=== PATIENT | female | born 1970 | race Caucasian/White ===

== ENCOUNTER 2020-07-21 07:35 | Outpatient (RCR) | payer BC, SELFPAY ==
[2020-07-20 13:46] LABS: Hemoglobin 5.8 g/dL (12.0-15.0)
[2020-07-21] VITALS (11 sets, daily range): BP systolic 99–119; BP diastolic 51–75; PULSE 81–91; RESP 15–18; TEMP 36.3–37.3; O2SAT 99–100
== END 2020-10-18 23:59 | disposition home or self-care (01) ==
LOC: ANHCPCTRAN 07:35
PROVIDERS: PCP Family Medicine; Visit Provider Family Medicine
DX: D64.9 Anemia, unspecified (principal)
CPT/HCPCS: 36415; 36430; 85014; 85018; 86850; 86900; 86901; 86920; P9016

== ENCOUNTER 2020-10-11 05:33 | Emergency (ER) | payer BC, SELFPAY ==
[2020-10-11] VITALS (19 sets, daily range): BP systolic 116–184; BP diastolic 70–124; PULSE 84–155; RESP 14–32; TEMP 37.1–37.6; O2SAT 95–100
--- NOTE | 2020-10-11 05:41 | ECG_ITS ---
Measurements Intervals [place] Rate: 150 P: 61 WI: 125 QRS: 37 QRSD: 86 T: 52 QT: 323 QTc: 511 Interpretive Statements SINUS TACHYCARDIA, POSSIBLE ATRIAL FLUTTER CANNOT RULE OUT SEPTAL INFARCT, AGE INDETERMINATE BORDERLINE ST-T WAVE ABNORMALITY- INF/LAT LEADS BASELINE ARTIFACT- AVR, AVL, V1-V3 ABNORMAL ECG Electronically Signed On 10-15-2020 10:23:06 CDT by Tyler Lord D.O.
--- NOTE | 2020-10-11 05:55 | ED.SEIZURE ---
HPI - Seizure General Chief Complaint: Seizure <Satnam Sandoval MD - Last Filed: 10/11/20 06:39> Stated Complaint: seizure <Satnam Sandoval MD - Last Filed: 10/11/20 06:39> Time Seen by Provider: 10/11/20 05:46 <Satnam Sandoval MD - Last Filed: 10/11/20 06:39> History of Present Illness HPI Narrative: Patient is a 49-year-old female who presents ER status post seizure. Patient had one 20 second seizure at home prior to calling an ambulance. She took her home Keppra 500 mg just before this. While in the ambulance she had another 30 second seizure. She has mild confusion with the second seizure. For seizure she reports she did not lose consciousness. No loss of bowel or bladder. Denies any missed doses of her epileptic medication. She does report over the last week she has been feeling fatigued and unwell and has not been eating and drinking as well. No additional stressors. Dr. Daniels is her neurologist. Last seizure 04/2020. <Satnam Sandoval MD - Last Filed: 10/11/20 06:39> Related Data Home Medications: Home Medications Medication Instructions Recorded Confirmed acetaminophen 500 mg tablet 1,000 mg PO Q6H PRN tablet 03/25/19 08/26/20 cholecalciferol (vitamin D3) 25 1,000 unit PO DAILY 03/25/19 08/26/20 mcg (1,000 unit) tablet mhtibr-kqwdwexg-bnvlboo 2 cap PO TID cap 03/25/19 08/26/20 24,000-76,000-120,000 unit capsule,delayed rel thiamine mononitrate (vit B1) 100 100 mg PO DAILY 03/25/19 08/26/20 mg tablet pantoprazole 40 mg tablet,delayed 40 mg PO BID tablet 07/30/19 08/26/20 release gabapentin 300 mg capsule 300 mg PO TID cap 08/26/20 08/26/20 <Satnam Sandoval MD - Last Filed: 10/11/20 06:39> Allergies/Adverse Reactions: Allergies Allergy/AdvReac Type Severity Reaction Status Date / Time No Known Allergies Allergy Verified 10/11/20 05:54 <Satnam Sandoval MD - Last Filed: 10/11/20 06:39> Review of Systems Review of Systems: All systems reviewed & are unremarkable except as noted in HPI and below <Satnam Sandoval MD - Last Filed: 10/11/20 06:39> Constitutional: Constitutional: Denies chills, Denies fever(s) and Denies weakness <Satnam Sandoval MD - Last Filed: 10/11/20 06:39> ENT: Denies nasal congestion and Denies sore throat <Satnam Sandoval MD - Last Filed: 10/11/20 06:39> Respiratory: Respiratory: Denies cough and Denies dyspnea <Satnam Sandoval MD - Last Filed: 10/11/20 06:39> Gastrointestinal: Gastrointestinal: Denies abdominal pain, Denies nausea and Denies vomiting <Satnam Sandoval MD - Last Filed: 10/11/20 06:39> Comments: Denies GI bleeding. <Satnam Sandoval MD - Last Filed: 10/11/20 06:39> Neurologic: Denies headache(s), Denies focal weakness and Denies numbness <Satnam Sandoval MD - Last Filed: 10/11/20 06:39> Comments: Seizure <Satnam Sandoval MD - Last Filed: 10/11/20 06:39> PMFSH Past Medical History Medical History: Medical History (Updated 10/11/20 @ 11:16 by Josemanuel Christy MD) Anxiety Biliary stricture Chronic pancreatitis Depression Esophageal varices Essential (primary) hypertension H/O adenomatous polyp of colon MGUS (monoclonal gammopathy of unknown significance) Portal vein thrombosis Seizure <Satnam Sandoval MD - Last Filed: 10/11/20 06:39> Surgical History Surgical History: Surgical History History of lumpectomy of right breast Presence of pancreatic duct stent <Satnam Sandoval MD - Last Filed: 10/11/20 06:39> Family History Family History: Family History Father Hypertension Cerebrovascular accident Mother Hypertension <Satnam Sandoval MD - Last Filed: 10/11/20 06:39> Social History Social History: Social History Smoking status: Never smoker Second hand to
[2020-10-11] MEDS: SODIUM CHLORIDE 0.9% IV 1,000 ML 999 ML IV CONT ×2 (06:15→06:19)
[2020-10-11 06:23] LABS: Basophils Percent Auto 0.3 % (0.2-1.2); Eosinophils Percent Auto 0.5 % (0-4.4); Hematocrit 32.4 % (37.0-47.0); Hemoglobin 9.9 g/dL (12.0-15.0); Immature Granulocyte Absolute 0.05 K/mm3 (0.00-0.031); Immature Granulocyte Percent A 0.9 % (0-0.5); Immature Platelet Fraction Pct 9.5 % (0.9-11.2); Lymphocytes Absolute Auto 0.73 K/mm3 (0.9-3.2); Lymphocytes Percent Auto 12.8 % (18.3-44.2); Mean Corpuscular HGB Conc 30.6 g/dl (32-36); Mean Corpuscular Hemoglobin 24.4 pg (26-34); Mean Corpuscular Volume 79.8 fl (80-100); Mean Platelet Volume 10.2 fl (7.4-10.4); Monocytes Absolute Auto 0.9 K/mm3 (0.1-0.6); Monocytes Percent Auto 15.2 % (2.6-8.5); Neutrophils Percent Auto 70.3 % (45.5-73.1); Platelet Count Result 118 k/mm3 (150-375); Red Blood Count 4.06 M/mm3 (4.2-5.4); White Blood Count 5.7 K/mm3 (4.5-10.0)
--- NOTE | 2020-10-11 06:39 | PC.NURSE ---
Pt reports partial seizure, states that her head went back and her eyes started blinking.
[2020-10-11 06:44] LABS: Add Urine Microscopic? YES; Appearance Urine Clear (Clear); Bilirubin Urine Negative (Negative); Blood Urine Negative (Negative); Color Urine Straw (Yellow); Glucose Urine UA Negative (Negative); Ketones Urine Trace mg/dL (Negative); Leukocyte Esterase Ur Negative LEU/UL (Negative); Nitrate Urine Negative (Negative); Protein Urine Negative (Negative); RBC Urine 0-2 /hpf (0-2); Specific Grav Ur 1.005 (1.001-1.035); Urobilinogen Urine Negative mg/dL (<2.0); WBC Urine 0-3 /hpf
[2020-10-11] MEDS: LORazepam INJ (*CRX) 2 MG/ML VIAL 1 MG IV PUSH (06:49)
[2020-10-11] MEDS: levETIRAcetam 500MG/NACL 100ML 500 MG/100 ML BAG 400 MG IVPB (07:00)
--- NOTE | 2020-10-11 07:00 | PC.NURSE ---
this rn called [facility] and stated they would fax report over within in the next 20 min.
--- NOTE | 2020-10-11 07:08 | PC.NURSE ---
Lab called - all blood tubes hemolyzed. Informed RN.
[2020-10-11 07:34] LABS: Alanine Aminotransferase 44 U/L (4-35); Albumin Level 4.5 g/dL (3.5-5.1); Alkaline Phosphatase 107 U/L (38-126); Anion Gap 17 mmol/L (8-16); Aspartate Amino Transferase 79 U/L (14-36); Bilirubin,Total 0.8 mg/dL (0.2-1.3); Blood Urea Nitrogen 9 mg/dL (7-17); Calcium 9.1 mg/dL (8.4-10.2); Carbon Dioxide 22 mmol/L (22-30); Chloride 94 mmol/L (98-107); Estimated CRCL calculation 73 ml/min; Estimated Glomerular Filt Rate > 60; Glucose 169 mg/dL (65-105); Potassium 3.7 mmol/L (3.4-5.0); Sodium 133 mmol/L (137-145)
[2020-10-14 03:07] LABS: Levetiracetam Keppra 29.1 mcg/mL (12.0-46.0)
== END 2020-10-11 11:50 | disposition home or self-care (01) ==
PROVIDERS: Emergency Medicine; Emergency Provider Emergency Medicine; PCP Family Medicine
DX: G40.409 Other generalized epilepsy and epileptic syndromes, not intractable, without status epilepticus (principal); I10 Essential (primary) hypertension; F32.9 Major depressive disorder, single episode, unspecified; F41.9 Anxiety disorder, unspecified
CPT/HCPCS: 36415; 51701; 80053; 80177; 81001; 85025; 85055; 93005; 96361; 96365; 96375; 99284; J1953; J2060; J7030

== ENCOUNTER 2020-12-04 18:54 | Observation (INO) | payer BC, SELFPAY ==
[2020-12-04] VITALS (31 sets, daily range): BP systolic 86–112; BP diastolic 42–84; PULSE 99–154; RESP 12–32; TEMP 36.4–37.4; O2SAT 91–100
--- NOTE | ~2020-12-04 | XR_ITS ---
XR chest 1V portable DATE: 12/04/2020 20:03 INDICATION: Near syncope. Weakness. History of essential hypertension, anxiety, seizures TECHNIQUE: Portable AP chest on 12/04/2020 at 1958 hours COMPARISON: 02/16/2018 two-view chest FINDINGS: Normal heart size. No hilar or mediastinal enlargement. The lungs are clear of infiltrate o r consolidation. No pleural effusion or pulmonary vascular congestion or pneumothorax. IMPRESSION: No active cardiopulmonary disease Reviewed, dictated and finalized at location A.
--- NOTE | 2020-12-04 19:33 | ECG_ITS ---
Measurements Intervals [place] Rate: 145 P: 54 [place]: 107 QRS: 39 QRSD: 77 T: 39 QT: 282 QTc: 439 Interpretive Statements SINUS TACHYCARDIA WITH SHORT WA INTERVAL, POSSIBLE ATRIAL FLUTTER BORDERLINE ST ABNORMALITY- ANTEROLAT/INF LEADS ABNORMAL ECG Electronically Signed On 12-05-2020 8:19:56 CDT by Tyler Lord D.O.
--- NOTE | 2020-12-04 19:35 | ED.GENADULT ---
HPI - General Adult General Chief complaint: Syncope Stated complaint: weakness/ seizure? Time Seen by Provider: 12/04/20 19:28 Source: RN notes reviewed History of Present Illness HPI narrative: Patient presents emergency department from home via EMS for weakness. Patient states that she was feeling weak and dizzy at home today she states that she began to feel weak when she woke up this morning but the symptoms worsened this afternoon she states she tried to walk back from the bathroom and felt like she was going to pass out she denies any full syncopal episodes she denies any fevers or chills chest pain shortness of breath abdominal pain nausea vomiting or any other symptoms states she has had no recent illness Related Data Home Medications Medication Instructions Recorded Confirmed acetaminophen 500 mg tablet 1,000 mg PO Q6H PRN tablet 03/25/19 08/26/20 cholecalciferol (vitamin D3) 25 1,000 unit PO DAILY 03/25/19 08/26/20 mcg (1,000 unit) tablet kipolb-cgakamrl-yyduyzz 2 cap PO TID cap 03/25/19 08/26/20 24,000-76,000-120,000 unit capsule,delayed rel thiamine mononitrate (vit B1) 100 100 mg PO DAILY 03/25/19 08/26/20 mg tablet pantoprazole 40 mg tablet,delayed 40 mg PO BID tablet 07/30/19 08/26/20 release gabapentin 300 mg capsule 300 mg PO TID cap 08/26/20 08/26/20 Allergies Allergy/AdvReac Type Severity Reaction Status Date / Time No Known Allergies Allergy Verified 10/11/20 05:54 Review of Systems Review of Systems: Gen.: Denies fevers or chills Eyes: Denies eye pain or visual change ENT: Denies congestion Respiratory: Denies shortness of breath or cough CV: Denies chest pain or palpitations reports near syncope GI: Denies abdominal pain nausea, emesis or diarrhea Musculoskeletal: Denies back pain or muscle pain Neuro: Reports weakness Skin: Denies rash Except as documented, all other systems reviewed and negative PMFSH Past Medical History Medical History Anxiety Biliary stricture Chronic pancreatitis Depression Esophageal varices Essential (primary) hypertension H/O adenomatous polyp of colon MGUS (monoclonal gammopathy of unknown significance) Portal vein thrombosis Seizure Surgical History Surgical History History of lumpectomy of right breast Presence of pancreatic duct stent Family History Family History Father Hypertension Cerebrovascular accident Mother Hypertension Social History Social History Smoking status: Never smoker Second hand tobacco smoke exposure: No Alcohol intake: former Alcohol use details: 12/2017 Substance use: never Substance use type: does not use Gender identity (if verbalized by the patient): Female Exam Narrative: APPEARANCE: No acute distress, nontoxic, resting in bed EYES: EOMI HEENT: Normocephalic, atraumatic, OMM RESPIRATORY: No respiratory distress Clear to auscultation bilaterally with no rhonchi wheezing or rales. CARDIOVASCULAR: Tachycardic and regular without murmurs rubs or gallops. ABDOMINAL: Soft, nontender, nondistended, no rebound or guarding Rectal: No hemorrhoids or fissures on amount of soft light brown stool that slowly comes Hemoccult positive MUSCULOSKELETAl: Moves all extremities. No clubbing, cyanosis or edema. NEURO: Awake and alert x 3. Following commands, speech normal, no focal deficits SKIN:: Warm, dry. No rashes lesions or abrasions PSYCHIATRIC: Normal affect/mood, Course Course Emergency Course: Called discussed Dr. Bauer presentation work-up agrees with admission at this time agrees with plan for transfusion Called and discussed Dr. Reza for GI presentation work-up agrees with consult at this time Discussed with patient and family results of workup and diagnosis. Discu
[2020-12-04] MEDS: SODIUM CHLORIDE 0.9% IV 1,000 ML 999 ML IV CONT ×2 (20:27→20:29)
[2020-12-04 20:33] LABS: Basophils Percent Auto 0.3 % (0.2-1.2); Hematocrit 22.8 % (37.0-47.0); Immature Granulocyte Percent A 0.9 % (0-0.5); Lymphocytes Absolute Auto 0.67 K/mm3 (0.9-3.2); Lymphocytes Percent Auto 6.3 % (18.3-44.2); Mean Corpuscular HGB Conc 29.4 g/dl (32-36); Mean Corpuscular Hemoglobin 23.9 pg (26-34); Mean Corpuscular Volume 81.4 fl (80-100); Mean Platelet Volume 10.9 fl (7.4-10.4); Monocytes Absolute Auto 1.2 K/mm3 (0.1-0.6); Monocytes Percent Auto 11.6 % (2.6-8.5); Neutrophils Absolute Auto 8.5 K/mm3 (1.3-6.7); Neutrophils Percent Auto 80.9 % (45.5-73.1); Platelet Count Result 186 k/mm3 (150-375); Red Cell Distribution Width 23.2 % (11.5-14.5); White Blood Count 10.6 K/mm3 (4.5-10.0)
[2020-12-04 20:46] LABS: Alanine Aminotransferase 43 U/L (4-35); Alkaline Phosphatase 91 U/L (38-126); Anion Gap 11 mmol/L (8-16); Aspartate Amino Transferase 34 U/L (14-36); Bilirubin,Total 0.4 mg/dL (0.2-1.3); Blood Urea Nitrogen 28 mg/dL (7-17); Calcium 9.1 mg/dL (8.4-10.2); Carbon Dioxide 23 mmol/L (22-30); Chloride 98 mmol/L (98-107); Estimated CRCL calculation 84 ml/min; Estimated Glomerular Filt Rate > 60; Glucose 139 mg/dL (65-110); Magnesium 1.5 mg/dL (1.6-2.3); Sodium 132 mmol/L (137-145)
[2020-12-04 20:47] LABS: Ethanol < 10 mg/dL (<10)
[2020-12-04 20:56] LABS: Hemoglobin 6.7 g/dL (12.0-15.0)
[2020-12-04 20:58] LABS: Troponin I < 0.012 ng/mL (0.000-0.034)
[2020-12-04 20:59] LABS: INR 1.1; Prothrombin Time 13.6 Seconds (11.1-14.7)
[2020-12-04 21:00] LABS: Partial Thromboplastin Time 24.2 SECONDS (22.3-36.8)
[2020-12-04] MEDS: levETIRAcetam 500 MG TABLET PO (21:16)
[2020-12-04] MEDS: MAGNESIUM SULF 2 GM/WATER 50ML 2 GM/50 ML BAG IVPB (21:28)
[2020-12-04] MEDS: PANTOPRAZOLE SODIUM IV 40 MG VIAL IV PUSH (21:28)
[2020-12-04] MEDS: SODIUM CHLORIDE 0.9% IV 250 ML 30 ML IV CONT (22:37)
[2020-12-05] VITALS (25 sets, daily range): BP systolic 95–132; BP diastolic 56–87; PULSE 74–103; RESP 12–22; TEMP 35.9–37.2; O2SAT 96–100; BMI 24.2
--- NOTE | 2020-12-05 00:19 | PM.IMHP ---
H&P: HPI History of Present Illness Date/Time: 12/05/20 00:19 Chief Complaint: Near syncope, severe anemia Narrative: Patient presents to the emergency department from home via EMS for near syncopal episode that she had this afternoon. She stated that she was doing well until yesterday in the afternoon when she felt very weak and dizzy at home almost Jayne pass out but she lowered herself down to the floor and called EMS. This happened while she was going back to the bathroom and was using a walker do that as she was getting more short of breath as well. She denies any dark-colored stool or any blood in the stool. She has chronic history of anemia and GI bleed usually sees a GI doctor at [facility]. She denies any nausea vomiting or abdominal pain no fever chills. In the ER she was noted to be anemic at 6.7 her last hemoglobin was 9.9 prior to this. She was possibly guaiac-positive done in the ER on rectal exam. She was also tachycardic with sinus tachycardia on the ER arrival. She got some fluid and 1 lead unit of PRBC done in the ER and is feeling better already. She is admitted for further evaluation and management. Review of Systems Review of Systems: - CONSTITUTIONAL: Denies weight loss, fever and chills. - HEENT: Denies changes in vision and hearing - RESPIRATORY: Denies SOB and cough. Reports shortness of breath on exertion - CV: Denies palpitations and CP. - GI: Denies abdominal pain, nausea, vomiting and diarrhea. - : Denies dysuria and urinary frequency. - MSK: Denies myalgia and joint pain. - SKIN: Denies rash and pruritus. - NEUROLOGICAL: Denies headache and reports near syncope. - PSYCHIATRIC: Denies recent changes in mood. Denies anxiety and depression. All systems reviewed & are unremarkable except as noted in HPI and below Constitutional: Constitutional: Reports fatigue and Reports weakness Neurologic: Reports weakness Endocrine: Endocrine: Reports fatigue PMFSH Past Medical History Medical History Anxiety Biliary stricture Chronic pancreatitis Depression Esophageal varices Essential (primary) hypertension H/O adenomatous polyp of colon MGUS (monoclonal gammopathy of unknown significance) Portal vein thrombosis Seizure Surgical History Surgical History History of lumpectomy of right breast Presence of pancreatic duct stent Family History Family History Father Hypertension Cerebrovascular accident Mother Hypertension Social History Social History Smoking status: Never smoker Second hand tobacco smoke exposure: No Alcohol intake: former Alcohol use details: 12/2017 Substance use: never Substance use type: does not use Gender identity (if verbalized by the patient): Female Meds Home Medications and Allergies Home Medications Medication Instructions Recorded Confirmed Type gabapentin 300 mg capsule 300 mg PO TID cap 08/26/20 08/26/20 History levetiracetam 500 mg tablet 500 mg PO Q12H #180 tablet 09/16/20 Rx buspirone [BuSpar] 10 mg PO BID 12/04/20 History desvenlafaxine 50 mg PO DAILY 12/04/20 History ezlikr-ddkitgeq-aeydbof [Creon] 1 cap PO AC 12/04/20 History lorazepam 0.5 mg PO TID PRN 12/04/20 History ondansetron 12/04/20 History Allergies Allergy/AdvReac Type Severity Reaction Status Date / Time No Known Allergies Allergy Verified 12/04/20 22:20 Vital Signs Vital Signs - 24 hr 12/04/20 19:02 12/04/20 19:06 12/04/20 19:12 Temperature 98.9 F Pulse Rate 130 H 134 H 139 H Respiratory Rate 12 18 Blood Pressure 96/79 L 91/79 L Pulse Oximetry 100 100 12/04/20 19:15 12/04/20 19:30 12/04/20 19:45 Temperature Pulse Rate 124 H 138 H 134 H Respiratory Rate 16 14 16 Blood Pressure 97/84 L Pulse Oxim
--- NOTE | 2020-12-05 00:28 | ADMGEN ---
This patient, Adina Jerome, was admitted to IMU Room 202-01 on 12/05/20 at 0006. Patient/family oriented to hospital policies and general routines including ID bracelet, bed and alarms, visiting hours, pain management, procedures, bathroom and other care routines, personal items, smoking policy, room service/diet, and visiting hours. Information on how to activate the Rapid Response Team has been discussed. Patient/Family are encouraged to report perceived risks to care and to ask questions if they do not understand what they are told or what they should do.
[2020-12-05 02:11] LABS: Basophils Percent Auto 0.4 % (0.2-1.2); Eosinophils Percent Auto 0.2 % (0-4.4); Hematocrit 23.6 % (37.0-47.0); Immature Granulocyte Absolute 0.03 K/mm3 (0.00-0.031); Immature Granulocyte Percent A 0.6 % (0-0.5); Immature Platelet Fraction Pct 8.8 % (0.9-11.2); Lymphocytes Absolute Auto 1.01 K/mm3 (0.9-3.2); Lymphocytes Percent Auto 18.9 % (18.3-44.2); Mean Corpuscular HGB Conc 29.2 g/dl (32-36); Mean Corpuscular Hemoglobin 25.9 pg (26-34); Mean Corpuscular Volume 88.7 fl (80-100); Mean Platelet Volume 11.5 fl (7.4-10.4); Monocytes Absolute Auto 0.9 K/mm3 (0.1-0.6); Monocytes Percent Auto 16.5 % (2.6-8.5); Neutrophils Absolute Auto 3.4 K/mm3 (1.3-6.7); Neutrophils Percent Auto 63.4 % (45.5-73.1); Platelet Count Result 116 k/mm3 (150-375); Red Blood Count 2.66 M/mm3 (4.2-5.4); Red Cell Distribution Width 21.4 % (11.5-14.5); White Blood Count 5.3 K/mm3 (4.5-10.0)
[2020-12-05 02:16] LABS: Alanine Aminotransferase 33 U/L (4-35); Albumin Level 3.3 g/dL (3.5-5.1); Alkaline Phosphatase 72 U/L (38-126); Anion Gap 6 mmol/L (8-16); Aspartate Amino Transferase 26 U/L (14-36); Bilirubin,Total 0.7 mg/dL (0.2-1.3); Blood Urea Nitrogen 23 mg/dL (7-17); Calcium 7.8 mg/dL (8.4-10.2); Carbon Dioxide 21 mmol/L (22-30); Chloride 109 mmol/L (98-107); Estimated CRCL calculation 99 ml/min; Estimated Glomerular Filt Rate > 60; Glucose 97 mg/dL (65-110); Potassium 3.8 mmol/L (3.4-5.0); Sodium 136 mmol/L (137-145)
[2020-12-05 02:19] LABS: Hemoglobin 6.9 g/dL (12.0-15.0)
[2020-12-05 02:50] LABS: Iron 56 ug/dL (37-170)
[2020-12-05 02:59] LABS: Percent Iron Saturation 15 % (20-50)
[2020-12-05 03:26] LABS: Ferritin 9.88 ng/mL (6.24-137)
[2020-12-05] MEDS: SODIUM CHLORIDE 0.9% IV 1,000 ML 80 ML IV CONT ×2 (06:43→21:59)
[2020-12-05 07:47] LABS: Hematocrit 26.4 % (37.0-47.0); Hemoglobin 8.2 g/dL (12.0-15.0)
[2020-12-05 09:59] LABS: IFOB Positive Control Positive; Immunochemical Fecal Occult Bl Positive (N)
[2020-12-05 10:00] LABS: Add Urine Microscopic? YES; Appearance Urine Clear (Clear); Bilirubin Urine Negative (Negative); Blood Urine Negative (Negative); Color Urine Yellow (Yellow); Glucose Urine UA Negative (Negative); Ketones Urine Trace mg/dL (Negative); Leukocyte Esterase Ur 2+ LEU/UL (Negative); Nitrate Urine Negative (Negative); Protein Urine Negative (Negative); Specific Grav Ur 1.019 (1.001-1.035); Squamous Epithelial Cell Urine Moderate /hpf (Few); WBC Urine 0-3 /hpf
--- NOTE | 2020-12-05 10:02 | PM.IMPN ---
Progress Note: A&P Assessment and Plan (1) Symptomatic anemia: Code(s): D64.9 - Anemia, unspecified Status: Acute (2) GI bleed: Code(s): K92.2 - Gastrointestinal hemorrhage, unspecified Status: Acute (3) Near syncope: Code(s): R55 - Syncope and collapse Status: Acute (4) MCCRACKEN (dyspnea on exertion): Code(s): R06.09 - Other forms of dyspnea Status: Acute (5) SHERLEY (iron deficiency anemia): Code(s): D50.9 - Iron deficiency anemia, unspecified Status: Acute (6) Seizure disorder: Code(s): G40.909 - Epilepsy, unspecified, not intractable, without status epilepticus Status: Acute (7) History of chronic pancreatitis: Code(s): Z87.19 - Personal history of other diseases of the digestive system Status: Acute Additional Plan # Acute on chronic anemia: Feeling much better after transfusion. 2 units 12/04. Continue to monitor serial hemoglobins. Appreciate GI evaluation. # History of iron deficiency anemia: Iron saturation 15%, ferritin 10 consistent with iron deficiency. Should improve with transfusion. Resume iron orally. # Possible GI bleed PPI IV b.i.d. GI consult. History of AVMs. Normally follows GI at [facility]. # History of chronic pancreatitis likely alcohol related history of pancreatic duct stents in the past: Continue pancreatic enzymes # Seizure disorder: Continue home Keppra # Anxiety depression: Continue home meds # History of portal vein thrombosis related to pancreatitis in 2019 # DVT prophylaxis: SCDs Full code Subjective Date/time seen: 12/05/20 10:02 This is a pleasant 49-year-old woman with past medical history of chronic pancreatitis, hypertension, seizures, and chronic anemia who was brought to the emergency department on 12/04 after she had a near syncopal episode when she was at home when she got up to go to the bathroom. She felt dizzy. She felt some shortness of breath. When she was evaluated in the emergency department, she was noted to have a hemoglobin of 6.7. Hemoglobin baseline is somewhere between 8-9. She has significant history of anemia thought to be related to GI bleed due to AVM malformations, and has followed at [facility] gastroenterology and Hematology. She has had numerous procedures including upper endoscopies and colonoscopies, and 2 capsule endoscopies to delineate this. He has had an extensive workup. She was admitted to the hospital and transfused 2 units of blood. Her hemoglobin improved to 8.2. She was visited by Gastroenterology. Given the extensive workup she has had in the past, she elected not to undergo any further workup. Her iron levels were checked and were low. She was given IV iron along with another unit of RBCs. Her symptoms lightheadedness and shortness of breath resolved. She felt comfortable with ambulation and being able to go home, along with follow-up with her criminal lawyer and planning director. Through her stay she was hemodynamically stable. Interval history: She reports feeling significantly better after the blood transfusion. She is receiving IV fluids currently. Uneventful night. Hemodynamically stable. Systolic blood pressure 120 currently. No report melena or hematochezia. No nausea or vomiting. Review of Systems Review of Systems: All systems reviewed & are unremarkable except as noted in HPI and below Exam Narrative: Gen: Alert, NAD Abd: Soft, NT, ND Heart: RRR Lungs: CTAB Ext: No lower extremity edema Objective Data Vital Signs Vital Signs: Vital Signs - 24 hr 12/04/20 19:02 12/04/20 19:06 12/04/20 19:12 Temperature 98.9 F Pulse Rate 130 H 134 H 139 H Respiratory Rate 12 18 Blood Pressure 96/79 L 91/79 L Pulse Oximetry 100 100 12/04/20 19:15 12/04/20 19:30 12/04/20 19:45 Temperature Pulse Rate 124 H 138 H 134 H Respiratory Rate 16 14 16 Blood Pressure 97/84 L Pulse Oximetry 99 98 98 12/04/20 20:00 12/04/20 20:15 12/04/20
[2020-12-05] MEDS: CHOLECALCIFEROL 1,000 UNITS TABLET 5000 UNITS PO (10:08)
[2020-12-05] MEDS: GABAPENTIN 300 MG CAPSULE PO ×3 (10:09→17:05)
[2020-12-05] MEDS: busPIRone HCL 10 MG TABLET PO ×2 (10:09→17:05)
[2020-12-05] MEDS: MULTIVITAMINS THERAPEUTIC TAB (*BKC) 1 TABLET PO (10:10)
[2020-12-05] MEDS: PANTOPRAZOLE SODIUM IV 40 MG VIAL IV PUSH (10:10)
[2020-12-05] MEDS: levETIRAcetam 500 MG TABLET PO ×2 (10:10→20:06)
[2020-12-05] MEDS: FOLIC ACID 1 MG TABLET PO (10:10)
[2020-12-05] MEDS: LORazepam (*CRX) 0.5 MG TABLET PO ×2 (10:17→20:06)
--- NOTE | 2020-12-05 10:46 | WPDGICN ---
Assessment and Plan Assessment and plan (1) ABLA (acute blood loss anemia): Code(s): D62 - Acute posthemorrhagic anemia <Cynthia Cruz APRN - Last Filed: 12/05/20 10:58> Status: Acute <Cynthia Cruz APRN - Last Filed: 12/05/20 10:58> Assessment and Plan: Impression: 1. ABLA with SHERLEY with possible concerns for small intestine GI blood loss, AVMS? . She is not actively bleeding at this time. Last small bowel enteroscopy and capsule completed 08/2020 was unremarkable at [facility]. 2. Chronic Pancreatitis with hx of pancreatic pseudocyst r/t alcohol abuse (no longer drinking 04/2020) 3. Anxiety and Depression 4. Seizures 5. MGUS 6. Hypertension Recommendations 1. Recheck CBC at 2 pm. 2. She wishes to follow up with Dr. Vargas (GI at [facility]) as she has had multiple endoscopy evaluations with no evidence of bleeding source. 3. Advance diet. 4. If hgb/hct stable, okay for discharge from GI standpoint with follow up with Dr. Vargas 5. Intolerance to oral iron, IV Venofer ordered 6. She will continue to follow up with hematology and GI at [facility] <Cynthia Cruz APRN - Last Filed: 12/05/20 10:58> GI Consult Note Consult date/time: 12/05/20 10:46 <Cynthia Cruz APRN - Last Filed: 12/05/20 10:58> HPI: Adina Jerome is a 49 year old female present to ER for 1-2 days of progressive weakness and almost syncope. She has hx of SHERLEY and chronic anemia. Follows with Dr. Vargas at [facility] for chronic anemia along with chronic pancreatitis with hx of pancreatic pseudocyst. she is on creon with meals. She had small bowel enteroscopy and video capsule placed 08/2020 with no source of GI blood loss. She Has had numerous colon, EGD, and capsule endoscopies with no evidence of source. She was previously on iron 325 mg TID but causes GI upset and has not been on this for months. In ER she was noted to have hgb 6.7 and received 2 units of PRBC with positive guiac stool with improvement of hgb 8.2 after blood. She does report daily melena and last episode this AM. She denies abdominal pain, nausea, vomiting, dysphagia, odynophagia, hematemesis or hematochezia. Denies any diarrhea, constipation, weight loss or appetite loss. <Cynthia Cruz APRN - Last Filed: 12/05/20 10:58> Review of Systems Review of Systems: All systems reviewed & are unremarkable except as noted in HPI and below <Cynthia Cruz APRN - Last Filed: 12/05/20 10:58> Gastrointestinal: Gastrointestinal: Reports as per HPI <Cynthia Cruz APRN - Last Filed: 12/05/20 10:58> PMFSH Past Medical History Medical History: Medical History Anxiety Biliary stricture Chronic pancreatitis Depression Esophageal varices Essential (primary) hypertension H/O adenomatous polyp of colon MGUS (monoclonal gammopathy of unknown significance) Portal vein thrombosis Seizure <Cynthia Cruz APRN - Last Filed: 12/05/20 10:58> Surgical History Surgical History: Surgical History History of lumpectomy of right breast Presence of pancreatic duct stent <Cynthia Cruz APRN - Last Filed: 12/05/20 10:58> Family History Family History: Family History Father Hypertension Cerebrovascular accident Congestive heart failure Mother Hypertension Rheumatoid arthritis Sibling Hypertension Anxiety <Cynthia Cruz APRN - Last Filed: 12/05/20 10:58> Social History Social History: Social History Smoking status: Never smoker Second hand tobacco smoke exposure: No Alcohol intake: former Drinks per week: 8 Alcohol use details: 12/2017 Substance use: former Substance use type: does not use Gender identity (if verbalized by the patient): Female Sexual Orientation (if Verbalized by the Patient): St
[2020-12-05] MEDS: LIPASE/AMYLASE/PROTEASE 12,000 UNITS CAP 2 CAP PO ×2 (12:26→17:04)
[2020-12-05 14:12] LABS: Hemoglobin 7.1 g/dL (12.0-15.0); Immature Platelet Fraction Pct 10.5 % (0.9-11.2); Mean Corpuscular HGB Conc 30.9 g/dl (32-36); Mean Corpuscular Volume 87.5 fl (80-100); Mean Platelet Volume 11.6 fl (7.4-10.4); Platelet Count Result 108 k/mm3 (150-375); Red Blood Count 2.63 M/mm3 (4.2-5.4); Red Cell Distribution Width 19.6 % (11.5-14.5); White Blood Count 4.4 K/mm3 (4.5-10.0)
[2020-12-05] MEDS: SODIUM CHLORIDE 0.9% IV 250 ML 30 ML IV CONT (17:03)
[2020-12-05] MEDS: ONDANSETRON HCL ODT 4 MG TABLET PO (18:17)
[2020-12-05] MEDS: PANTOPRAZOLE 40 MG TABLET PO (20:06)
[2020-12-06] VITALS (12 sets, daily range): BP systolic 92–135; BP diastolic 50–89; PULSE 73–124; RESP 12–18; TEMP 36.3–37.1; O2SAT 97–100
[2020-12-06 05:23] LABS: Hematocrit 25.9 % (37.0-47.0); Hemoglobin 7.9 g/dL (12.0-15.0)
[2020-12-06] MEDS: GABAPENTIN 300 MG CAPSULE PO ×3 (09:15→17:40)
[2020-12-06] MEDS: MULTIVITAMINS THERAPEUTIC TAB (*BKC) 1 TABLET PO (09:15)
[2020-12-06] MEDS: PANTOPRAZOLE 40 MG TABLET PO ×2 (09:15→20:01)
[2020-12-06] MEDS: LIPASE/AMYLASE/PROTEASE 12,000 UNITS CAP 2 CAP PO ×2 (09:16→12:12)
[2020-12-06] MEDS: levETIRAcetam 500 MG TABLET PO ×2 (09:16→20:01)
[2020-12-06] MEDS: busPIRone HCL 10 MG TABLET PO ×2 (09:16→17:40)
[2020-12-06] MEDS: CHOLECALCIFEROL 1,000 UNITS TABLET 5000 UNITS PO (09:16)
[2020-12-06] MEDS: FOLIC ACID 1 MG TABLET PO (09:16)
[2020-12-06] MEDS: LORazepam (*CRX) 0.5 MG TABLET PO ×3 (09:20→18:59)
[2020-12-06] MEDS: SODIUM CHLORIDE 0.9% IV 1,000 ML 80 ML IV CONT (09:20)
--- NOTE | 2020-12-06 12:58 | PM.IMPN ---
Progress Note: A&P Assessment and Plan (1) Symptomatic anemia: Code(s): D64.9 - Anemia, unspecified Status: Acute (2) GI bleed: Code(s): K92.2 - Gastrointestinal hemorrhage, unspecified Status: Acute (3) Near syncope: Code(s): R55 - Syncope and collapse Status: Acute (4) MCCRACKEN (dyspnea on exertion): Code(s): R06.09 - Other forms of dyspnea Status: Acute (5) SHERLEY (iron deficiency anemia): Code(s): D50.9 - Iron deficiency anemia, unspecified Status: Acute (6) Seizure disorder: Code(s): G40.909 - Epilepsy, unspecified, not intractable, without status epilepticus Status: Acute (7) History of chronic pancreatitis: Code(s): Z87.19 - Personal history of other diseases of the digestive system Status: Acute Additional Plan # Acute on chronic anemia: Feeling much better after transfusion. 2 units 12/04, 1 unit 12/05. Continue to monitor serial hemoglobins. Appreciate GI evaluation. # History of iron deficiency anemia: Iron saturation 15%, ferritin 10 consistent with iron deficiency. Should improve with transfusion. Resume iron orally. # Possible GI bleed PPI IV b.i.d. GI consult. History of AVMs. Normally follows GI at [place]. # History of chronic pancreatitis likely alcohol related history of pancreatic duct stents in the past: Continue pancreatic enzymes # Seizure disorder: Continue home Keppra # Anxiety depression: Continue home meds # History of portal vein thrombosis related to pancreatitis in 2019 # DVT prophylaxis: SCDs Full code Disposition: Home later today if her hemoglobin stable in the afternoon, asked her to do some gradual ambulation to make sure she is comfortable returning to home. Subjective Date/time seen: 12/06/20 12:58 Feels tired and fatigued this morning. Reports shortness of easily when ambulating to the bathroom. Her hemoglobin yesterday afternoon was 7.1 and she received 1 RBCs. Blood pressure systolic in the 90s. Review of Systems Review of Systems: All systems reviewed & are unremarkable except as noted in HPI and below Exam Narrative: Gen: Alert, NAD Abd: Soft, NT, ND Heart: RRR Lungs: CTAB Ext: No lower extremity edema Objective Data Vital Signs Vital Signs: Vital Signs - 24 hr 12/05/20 14:00 12/05/20 16:00 12/05/20 16:53 Temperature 97.9 F 98.1 F Pulse Rate 88 82 82 Respiratory Rate 12 16 Blood Pressure 124/77 99/59 L Pulse Oximetry 100 100 12/05/20 17:09 12/05/20 18:00 12/05/20 18:09 Temperature 98.1 F 98 F Pulse Rate 88 88 97 Respiratory Rate 16 12 Blood Pressure 110/76 132/85 Pulse Oximetry 100 100 12/05/20 19:09 12/05/20 20:00 12/05/20 20:09 Temperature 98.4 F 98.3 F Pulse Rate 86 85 90 Respiratory Rate 16 14 Blood Pressure 123/87 121/70 Pulse Oximetry 100 100 12/05/20 22:00 12/06/20 00:00 12/06/20 02:00 Temperature 97.9 F Pulse Rate 91 83 73 Respiratory Rate 16 Blood Pressure 110/66 Pulse Oximetry 100 12/06/20 04:00 12/06/20 06:00 12/06/20 08:00 Temperature 98.1 F 98.7 F Pulse Rate 88 75 95 Respiratory Rate 16 14 Blood Pressure 97/56 L 119/84 Pulse Oximetry 100 100 12/06/20 10:00 12/06/20 11:51 Temperature 98.8 F Pulse Rate 89 92 Respiratory Rate 12 Blood Pressure 92/50 L Pulse Oximetry 97 Intake/Output Intake/Output: Intake & Output 12/03/20 12/04/20 12/05/20 12/06/20 23:59 23:59 23:59 23:59 Intake Total 0 2730 1240 Output Total 3000 500 Balance 2050 -129 190 Meds/Results Medications: Active Medications Generic Name Dose Route Start Last Admin Trade Name Freq PRN Reason Stop Dose Admin Lipase/Protease/Amylase 2 cap 12/05/20 08:00 12/06/20 12:12 Lipase/Amylase/Protease 12,000 Units Cap PO 2 cap TIDWM AMELIE Administration Buspirone HCl 10 mg 12/05/20 09:00 12/06/20 09:16 Buspirone Hcl 10 Mg Tablet PO 10 mg BID AMELIE Administration Folic Acid 1 mg 12/05/20 09:00 12/06
[2020-12-06] MEDS: ONDANSETRON HCL ODT 4 MG TABLET PO ×2 (13:56→20:01)
[2020-12-06 14:28] LABS: Hematocrit 26.8 % (37.0-47.0); Hemoglobin 8.3 g/dL (12.0-15.0)
--- NOTE | 2020-12-06 17:05 | WPDGIPROGNO ---
Progress Note: A&P Assessment and Plan (1) ABLA (acute blood loss anemia): Code(s): D62 - Acute posthemorrhagic anemia Status: Acute Assessment and Plan: hb low but stable after blood transfusion she had multiple endoscopies at [facility] and does not want any more unless hemoglobin keeps dropping or she has more obvious gib she is getting octreotide as outpatient, apparently h/o AVM's if h/h stable tomorrow then she can go home and she is planning to see her GI doctor again (2) GI bleed: Code(s): K92.2 - Gastrointestinal hemorrhage, unspecified Status: Acute Assessment and Plan: treated medically and she will follow-up with hr GI doctor at [facility] (3) Near syncope: Code(s): R55 - Syncope and collapse Status: Acute (4) History of chronic pancreatitis: Code(s): Z87.19 - Personal history of other diseases of the digestive system Status: Acute Assessment and Plan: on creon, no new symptoms (5) MGUS (monoclonal gammopathy of unknown significance): Code(s): D47.2 - Monoclonal gammopathy Status: Acute Assessment and Plan: she is also seeing hematology Subjective Date/time seen: 12/06/20 17:05 Interval history: no major changes, had dark stool but 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 Review of Systems Review of Systems: All systems reviewed & are unremarkable except as noted in HPI and below Exam Const: General: comfortable and no acute distress HENMT: General nose exam: Normal nares present Eyes: General: appearance normal, both eyes and all related structures Neck: Neck: no JVD Resp: Auscultation: clear to auscultation bilaterally Cardio: Rate: regular rate Rhythm: regular rhythm GI: Inspection: non-distended GI Palp: Yes Soft to palpation Skin: General skin exam: normal color Neuro: General: gait normal Speech: normal speech Extrem: General: normal to inspection Psych: Mental Status: mental status grossly normal Objective Data Vital Signs Vital Signs: Vital Signs - 24 hr 12/05/20 17:09 12/05/20 18:00 12/05/20 18:09 Temperature 98.1 F 98 F Pulse Rate 88 88 97 Respiratory Rate 16 12 Blood Pressure 110/76 132/85 Pulse Oximetry 100 100 12/05/20 19:09 12/05/20 20:00 12/05/20 20:09 Temperature 98.4 F 98.3 F Pulse Rate 86 85 90 Respiratory Rate 16 14 Blood Pressure 123/87 121/70 Pulse Oximetry 100 100 12/05/20 22:00 12/06/20 00:00 12/06/20 02:00 Temperature 97.9 F Pulse Rate 91 83 73 Respiratory Rate 16 Blood Pressure 110/66 Pulse Oximetry 100 12/06/20 04:00 12/06/20 06:00 12/06/20 08:00 Temperature 98.1 F 98.7 F Pulse Rate 88 75 95 Respiratory Rate 16 14 Blood Pressure 97/56 L 119/84 Pulse Oximetry 100 100 12/06/20 10:00 12/06/20 11:51 12/06/20 12:00 Temperature 98.8 F Pulse Rate 89 92 114 H Respiratory Rate 12 Blood Pressure 92/50 L Pulse Oximetry 97 12/06/20 14:00 12/06/20 16:00 Temperature 98 F Pulse Rate 85 86 Respiratory Rate 12 Blood Pressure 112/89 Pulse Oximetry 100 Intake/Output Intake/Output: Intake & Output 12/03/20 12/04/20 12/05/20 12/06/20 23:59 23:59 23:59 23:59 Intake Total 2050 2730 1938 Output Total 3000 500 Balance 2050 -861 0558 Meds/Results Medications: Active Medications Generic Name Dose Route Start Last Admin Trade Name Mingoq PRN Reason Stop Dose Admin Lipase/Protease/Amylase 2 cap 12/05/20 08:00 12/06/20 12:12 Lipase/Amylase/Protease 12,000 Units Cap PO 2 cap TIDWM AMELIE Administration Buspirone HCl 10 mg 12/05/20 09:00 12/06/20 09:16 Buspirone Hcl 10 Mg Tablet PO 10 mg BID AMELIE Administration Folic Acid 1 mg 12/05/20 09:00 12/06/20 09:16 Folic Acid 1 Mg Tablet PO 1 mg DAILY AMELIE Administration Gabapentin 300 mg 12/05/20 09:00 12/06/20 12:12 Gabapentin 300 Mg Capsule PO 300 mg TID AMELIE Administration Levetiracetam 500 mg 12/05/20 09:00 12/06/20 09:16 Levet
[2020-12-07] VITALS (7 sets, daily range): BP systolic 96–124; BP diastolic 54–76; PULSE 79–94; RESP 14–20; TEMP 35.9–36.8; O2SAT 95–100
[2020-12-07 07:20] LABS: Hemoglobin 7.8 g/dL (12.0-15.0)
[2020-12-07] MEDS: LIPASE/AMYLASE/PROTEASE 12,000 UNITS CAP 2 CAP PO ×2 (08:48→12:23)
[2020-12-07] MEDS: busPIRone HCL 10 MG TABLET PO (08:48)
[2020-12-07] MEDS: CHOLECALCIFEROL 1,000 UNITS TABLET 5000 UNITS PO (08:48)
[2020-12-07] MEDS: MULTIVITAMINS THERAPEUTIC TAB (*BKC) 1 TABLET PO (08:49)
[2020-12-07] MEDS: PANTOPRAZOLE 40 MG TABLET PO (08:49)
[2020-12-07] MEDS: GABAPENTIN 300 MG CAPSULE PO ×2 (08:49→12:23)
[2020-12-07] MEDS: FOLIC ACID 1 MG TABLET PO (08:49)
[2020-12-07] MEDS: levETIRAcetam 500 MG TABLET PO (08:49)
[2020-12-07] MEDS: LORazepam (*CRX) 0.5 MG TABLET PO (09:01)
--- NOTE | 2020-12-07 09:33 | PM.DS ---
DS: Admitting Diagnosis Admitting Diagnosis Near Syncope DS: Discharge Diagnosis Discharge Diagnosis (1) Symptomatic anemia: Code(s): D64.9 - Anemia, unspecified Status: Acute (2) GI bleed: Code(s): K92.2 - Gastrointestinal hemorrhage, unspecified Status: Acute (3) Near syncope: Code(s): R55 - Syncope and collapse Status: Acute (4) MCCRACKEN (dyspnea on exertion): Code(s): R06.09 - Other forms of dyspnea Status: Acute (5) SHERLEY (iron deficiency anemia): Code(s): D50.9 - Iron deficiency anemia, unspecified Status: Acute (6) Seizure disorder: Code(s): G40.909 - Epilepsy, unspecified, not intractable, without status epilepticus Status: Acute (7) History of chronic pancreatitis: Code(s): Z87.19 - Personal history of other diseases of the digestive system Status: Acute DS: Summary Hospital Course Hospital Course: This is a pleasant 49-year-old woman with past medical history of chronic pancreatitis, hypertension, seizures, and chronic anemia who was brought to the emergency department on 12/04 after she had a near syncopal episode when she was at home when she got up to go to the bathroom. She felt dizzy. She felt some shortness of breath. When she was evaluated in the emergency department, she was noted to have a hemoglobin of 6.7. Hemoglobin baseline is somewhere between 8-9. She has significant history of anemia thought to be related to GI bleed due to AVM malformations, and has followed at [facility] gastroenterology and Hematology. She has had numerous procedures including upper endoscopies and colonoscopies, and 2 capsule endoscopies to delineate this. He has had an extensive workup. She was admitted to the hospital and transfused a total of 4 units of blood as she continued to have some ongoing GI bleed. Her hemoglobin improved to 9 range. Through her stay she was hemodynamically stable. She was visited by Gastroenterology. Given the extensive workup she has had in the past, she elected not to undergo any further workup. Her iron levels were checked and were low. She was given IV iron along with another unit of RBCs. Her symptoms lightheadedness and shortness of breath resolved. 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 Time Spent with Patient Time attestation: Total time spent providing and/or coordinating discharge services: 37 min Exam Narrative: Gen: Alert, NAD Abd: Soft, NT, ND Heart: RRR Lungs: CTAB Ext: No lower extremity edema DS: Data Data Completed and Pending Labs on day of discharge: Labs from last 24 hours 12/07/20 12/06/20 12/04/20 07:00 14:05 21:26 Hgb 7.8 L 8.3 L Hct 26.0 L 26.8 L Blood Type O Negative Antibody Screen Negative Crossmatch See Detail Discharge Plan Discharge Consulting providers: Armando Reza Discharging Clinician: Jenn Guidry Anticipated Discharge Date/Time: 12/07/20 09:36 Patient Disposition: Home, Self-Care Activity: as tolerated Diet: regular Discharge Instructions: 1. Recommend ongoing adequate daily oral hydration 2. Please call to set up follow-up with her disintegrator feeder given recurrence of lower GI bleed 3. Follow-up with your primary provider within 1 week of discharge 4. Recheck of hemoglobin level on 12/10 next Patient Instructions: Antibiotic Form, Gastrointestinal Bleeding (DC), Anemia (DC) Stand Alone Forms: General Discharge Information Follow-up/Referrals: Ann Marie,MD Aaliyah [Primary Care Provider] - (Follow-up with primary care provider within 1 week of discharge) Discharge Medications: Continued gabapentin 300 mg capsule 300 mg PO TID RF: 0 lorazepam 0.5 mg tablet 0.5 mg PO TID PRN (Reason: Anxiety) RF: 0 buspirone 10 mg Tablet 10 mg PO BID RF: 0 desvenlafaxine 50 mg Tablet Extended Re
[2020-12-07] MEDS: SODIUM CHLORIDE 0.9% IV 250 ML 30 ML IV CONT (09:40)
[2020-12-07] MEDS: ONDANSETRON HCL ODT 4 MG TABLET PO (13:00)
[2020-12-07 15:08] LABS: Hematocrit 30.5 % (37.0-47.0); Hemoglobin 9.6 g/dL (12.0-15.0)
== END 2020-12-07 15:39 | disposition home or self-care (01) ==
LOC: ANHED 21:16 → ANHIMU 23:09 → ANH2MED 12-06 18:40 → ANHIMU 12-06 19:05 → ANH2MED 12-06 21:56
PROVIDERS: Internal Medicine Gastroenterology; Admitting Provider Internal Medicine; Emergency Provider Emergency Medicine; PCP Family Medicine; Visit Provider Internal Medicine Nephrology
DX: D50.9 Iron deficiency anemia, unspecified (principal); K92.2 Gastrointestinal hemorrhage, unspecified; R55 Syncope and collapse; R06.02 Shortness of breath; R00.0 Tachycardia, unspecified; E87.1 Hypo-osmolality and hyponatremia; K86.1 Other chronic pancreatitis; F41.8 Other specified anxiety disorders; D47.2 Monoclonal gammopathy; I10 Essential (primary) hypertension; F10.10 Alcohol abuse, uncomplicated; G40.909 Epilepsy, unspecified, not intractable, without status epilepticus
CPT/HCPCS: 36415; 36430; 71045; 80053; 80307; 81001; 82274; 82728; 83540; 83550; 83735; 84484; 85014; 85018; 85025; 85027; 85055; 85610; 85730; 86850; 86900; 86901; 86920; 93005; 96361; 96365; 96375; 96376; 99285; A9270; C9113; G0378; J1756; J3475; J7030; J7050; P9016

== ENCOUNTER 2021-01-26 15:02 | Observation (INO) | payer BC, SELFPAY ==
[2021-01-26] VITALS (7 sets, daily range): BP systolic 99–134; BP diastolic 61–96; PULSE 102–137; RESP 10–18; TEMP 36.3–37.2; O2SAT 97–100; BMI 26.1
--- NOTE | ~2021-01-26 | XR_ITS ---
EXAMINATION: XR hip LT min 3V w AP pelvis INDICATION: Left hip pain TECHNIQUE: AP view the pelvis and three views of the left hip are obtained. COMPARISON: None available FINDINGS: Bone alignment is normal. There is no fracture. Phleboliths are noted in the pelvis. The so ft tissues are otherwise unremarkable. IMPRESSION: 1. No acute osseous abnormality. Reviewed, dictated and finalized at location A.
--- NOTE | 2021-01-26 15:14 | ECG_ITS ---
Measurements Intervals [place] Rate: 135 P: 43 [place]: 127 QRS: 33 QRSD: 80 T: 25 QT: 307 QTc: 461 Interpretive Statements SINUS TACHYCARDIA NONSPECIFIC ST & T-WAVE ABNORMALITY- DIFFUSE LEADS BASELINE ARTIFACT- I, II, AVR, AVL ABNORMAL ECG Electronically Signed On 01-26-2021 15:26:03 CDT by Tyler Lord D.O.
--- NOTE | 2021-01-26 15:46 | PC.NURSE ---
Pt states the last four days she has been feeling weird and her eye was twitchy, pt states she has been having increased anxiety bc she feels she will have a seizure soon, pt A&Ox4,no acute distress at this time
[2021-01-26] MEDS: SODIUM CHLORIDE 0.9% IV 1,000 ML 150 ML IV CONT (16:07)
[2021-01-26 17:06] LABS: Basophils Percent Auto 0.3 % (0.2-1.2); Eosinophils Absolute Auto 0.1 K/mm3 (0-0.3); Eosinophils Percent Auto 0.9 % (0-4.4); Hematocrit 25.6 % (37.0-47.0); Hemoglobin 7.6 g/dL (12.0-15.0); Immature Granulocyte Absolute 0.06 K/mm3 (0.00-0.031); Immature Granulocyte Percent A 0.9 % (0-0.5); Immature Platelet Fraction Pct 14.4 % (0.9-11.2); Lymphocytes Absolute Auto 0.76 K/mm3 (0.9-3.2); Lymphocytes Percent Auto 11.7 % (18.3-44.2); Mean Corpuscular HGB Conc 29.7 g/dl (32-36); Mean Corpuscular Hemoglobin 25.7 pg (26-34); Mean Corpuscular Volume 86.5 fl (80-100); Monocytes Absolute Auto 0.8 K/mm3 (0.1-0.6); Monocytes Percent Auto 11.9 % (2.6-8.5); Neutrophils Absolute Auto 4.8 K/mm3 (1.3-6.7); Neutrophils Percent Auto 74.3 % (45.5-73.1); Platelet Count Result 86 k/mm3 (150-375); Red Blood Count 2.96 M/mm3 (4.2-5.4); Red Cell Distribution Width 17.3 % (11.5-14.5); White Blood Count 6.5 K/mm3 (4.5-10.0)
[2021-01-26 17:16] LABS: Alanine Aminotransferase 20 U/L (4-35); Albumin Level 4.5 g/dL (3.5-5.1); Alkaline Phosphatase 81 U/L (38-126); Anion Gap 13 mmol/L (8-16); Aspartate Amino Transferase 32 U/L (14-36); Bilirubin,Total 0.5 mg/dL (0.2-1.3); Blood Urea Nitrogen 11 mg/dL (7-17); Carbon Dioxide 24 mmol/L (22-30); Chloride 94 mmol/L (98-107); Estimated CRCL calculation 72 ml/min; Estimated Glomerular Filt Rate > 60; Glucose 94 mg/dL (65-110); Lactic Acid Reflex 0.8 mmol/L (0.7-2.1); Lipase 65 U/L (23-300); Potassium 3.6 mmol/L (3.4-5.0); Sodium 131 mmol/L (137-145)
[2021-01-26 17:20] LABS: Ethanol < 10 mg/dL (<10)
[2021-01-26 17:40] LABS: Anisocytosis 3+ (NORMAL); Hypochromasia 1+ (NORMAL); Platelet Estimate Decreased (Adequate)
--- NOTE | 2021-01-26 17:48 | ED.GENADULT ---
HPI - General Adult General Chief complaint: Unspecified Stated complaint: FEELS LIKE GOING TO HAVE A SEIZURE Time Seen by Provider: 01/26/21 15:56 Source: patient Mode of arrival: EMS Limitations: no limitations History of Present Illness HPI narrative: 50-year-old with a history of seizures, GI bleed secondary to AVM, this point, patient is anemia today alcohol induced pancreatitis here with complaints of feeling shaky, weak and tired, thinks she may be having a seizure. Patient states that the symptoms started approximately since this morning but for the past few days she states that she is feeling extremely weak. Patient states that she had multiple colonoscopies in the past could not find the source of her bleeding they think it could be possible AVM. She states that she had all the scopes done and [facility]. She presently denies any rectal bleeding. No history of fever or chills or cough or shortness of breath. Onset (ago): day(s) (1) Severity: mild Pain Consistency: constant Relieving factors: none Exacerbating factors: none Associated symptoms: weakness Treatments prior to arrival: none Related Data Home Medications Medication Instructions Recorded Confirmed gabapentin 300 mg capsule 300 mg PO TID cap 08/26/20 12/05/20 Creon 1 cap PO TID 12/04/20 12/05/20 buspirone 10 mg PO BID 12/04/20 12/05/20 desvenlafaxine 50 mg PO DAILY 12/04/20 12/05/20 lorazepam 0.5 mg PO TID PRN 12/04/20 12/05/20 ondansetron 4 mg PO Q6H PRN 12/04/20 12/05/20 cholecalciferol (vitamin D3) 125 mcg PO DAILY 12/05/20 12/05/20 folic acid 1 mg PO DAILY 12/05/20 12/05/20 multivitamin [Daily Multi-Vitamin] 1 tablet PO DAILY 12/05/20 12/05/20 Allergies Allergy/AdvReac Type Severity Reaction Status Date / Time No Known Allergies Allergy Verified 12/05/20 00:29 Review of Systems Review of Systems: All systems reviewed & are unremarkable except as noted in HPI and below Constitutional: Constitutional: Reports no additional constitutional complaints Eyes: Eyes: Reports no additional eye complaints ENT: Reports system reviewed and no additional complaints, except as documented Cardiovascular: Cardiovascular: Reports no additional cardiovascular complaints Respiratory: Respiratory: Reports no additional respiratory complaints Gastrointestinal: Gastrointestinal: Reports no additional gastrointestinal complaints Musculoskeletal: Musculoskeletal: Reports no additional musculoskeletal complaints Neurologic: Reports system reviewed and no additional complaints, except as documented Psychiatric: Psychiatric: Reports anxiety PMFSH Past Medical History Medical History Anxiety Biliary stricture Chronic pancreatitis Depression Esophageal varices Essential (primary) hypertension H/O adenomatous polyp of colon MGUS (monoclonal gammopathy of unknown significance) Portal vein thrombosis Seizure Surgical History Surgical History History of lumpectomy of right breast Presence of pancreatic duct stent Family History Family History Father Hypertension Cerebrovascular accident Congestive heart failure Mother Hypertension Rheumatoid arthritis Sibling Hypertension Anxiety Social History Social History Smoking status: Never smoker Second hand tobacco smoke exposure: No Alcohol intake: former Drinks per week: 8 Alcohol use details: 12/2017 Substance use: former Substance use type: does not use Gender identity (if verbalized by the patient): Female Sexual Orientation (if Verbalized by the Patient): Straight or Heterosexual Spiritual care concerns: No Exam Narrative: GENERAL: Well-appearing, well-nourished, and in no acute distress. HEAD: Normocephalic, atraumatic. EYES: PERRLA and EOM
[2021-01-26] MEDS: LORazepam INJ (*CRX) 2 MG/ML VIAL 0.5 MG IV PUSH (18:21)
--- NOTE | 2021-01-26 18:52 | PC.NURSE ---
Pt states she feels more relaxed after ativan given
[2021-01-26 19:04] LABS: Hematocrit 25.3 % (37.0-47.0); Hemoglobin 7.4 g/dL (12.0-15.0)
[2021-01-26 19:15] LABS: D Dimer 0.63 ug/mL (<0.48)
--- NOTE | 2021-01-26 19:55 | ADMGEN ---
This patient, Adina Jerome, was admitted to 2 Medical Room 242-. Patient/family oriented to hospital policies and general routines including ID bracelet, bed and alarms, visiting hours, pain management, procedures, bathroom and other care routines, personal items, smoking policy, room service/diet, and visiting hours. Information on how to activate the Rapid Response Team has been discussed. Patient/Family are encouraged to report perceived risks to care and to ask questions if they do not understand what they are told or what they should do.
[2021-01-26 20:17] LABS: Add Urine Microscopic? YES; Appearance Urine Cloudy (Clear); Bacteria Urine Trace /hpf; Bilirubin Urine Negative (Negative); Blood Urine Negative (Negative); Color Urine Yellow (Yellow); Glucose Urine UA Negative (Negative); Ketones Urine Trace mg/dL (Negative); Leukocyte Esterase Ur Trace LEU/UL (Negative); Mucus Urine Rare /lpf; Nitrate Urine Negative (Negative); Protein Urine Negative (Negative); RBC Urine 0-2 /hpf (0-2); Specific Grav Ur 1.012 (1.001-1.035); Squamous Epithelial Cell Urine Occasional /hpf (Few); Urobilinogen Urine Negative mg/dL (<2.0); WBC Urine 0-3 /hpf
--- NOTE | 2021-01-26 21:48 | PM.IMHP ---
H&P: HPI History of Present Illness Date/Time: 01/26/21 21:48 Chief Complaint: Feels like going to have seizure Narrative: this is a 50-year-old female with a past medical history of seizures on anti seizure medication, 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 She feels like she may be going to have seizure and that the primary reason she came to the ED today. See our also Maged that she has been feeling extremely weak and tired over the past few days. She reports he had blood work done 2 weeks ago when her hemoglobin was 10.6. She is currently at 7.6 in the ER today. However denies any blood in her stool or melena or hematemesis. She states they have not found any source of bleeding in the past with multiple endoscopies, colonoscopies and capsule studies. Last test was done at [facility] few months ago by . she denies any fever chills cough or shortness of breath.She does report some abdominal pain today and for the past few days and reports it is related to her pancreatitis. Review of Systems Review of Systems: - CONSTITUTIONAL: Denies weight loss, fever and chills. Reports generalized weakness - HEENT: Denies changes in vision and hearing - RESPIRATORY: Denies SOB and cough. - CV: Denies palpitations and CP. - GI: reports abdominal pain, denies nausea, vomiting and diarrhea. - : Denies dysuria and urinary frequency. - MSK: Denies myalgia and joint pain. - SKIN: Denies rash and pruritus. - NEUROLOGICAL: Denies headache and syncope. - PSYCHIATRIC: Denies recent changes in mood. Denies anxiety and depression. All systems reviewed & are unremarkable except as noted in HPI and below Constitutional: Constitutional: Reports fatigue and Reports weakness Neurologic: Reports weakness Endocrine: Endocrine: Reports fatigue PMFSH Past Medical History Medical History Anxiety Biliary stricture Chronic pancreatitis Depression Esophageal varices Essential (primary) hypertension H/O adenomatous polyp of colon MGUS (monoclonal gammopathy of unknown significance) Portal vein thrombosis Seizure Surgical History Surgical History History of lumpectomy of right breast Presence of pancreatic duct stent Family History Family History Father Hypertension Cerebrovascular accident Congestive heart failure Mother Hypertension Rheumatoid arthritis Sibling Hypertension Anxiety Social History Social History Smoking status: Never smoker Second hand tobacco smoke exposure: No Alcohol intake: former Drinks per week: 20 Alcohol use details: 12/2017 Substance use: never Substance use type: does not use Gender identity (if verbalized by the patient): Female Sexual Orientation (if Verbalized by the Patient): Straight or Heterosexual Spiritual care concerns: No Meds Home Medications and Allergies Home Medications Medication Instructions Recorded Confirmed Type gabapentin 300 mg capsule 300 mg PO TID cap 08/26/20 01/26/21 History levetiracetam 500 mg tablet 500 mg PO Q12H #180 tablet 09/16/20 01/26/21 Rx Creon 1 cap PO TID 12/04/20 01/26/21 History buspirone 10 mg PO BID 12/04/20 01/26/21 History desvenlafaxine 50 mg PO DAILY 12/04/20 01/26/21 History lorazepam 0.5 mg PO TID PRN 12/04/20 01/26/21 History ondansetron 4 mg PO Q6H PRN 12/04/20 01/26/21 History cholecalciferol (vitamin D3) 125 mcg PO DAILY 12/05/20 01/26/21 History folic acid 1 mg PO DAILY 12/05/20 01/26/21 History multivitamin [Daily Multi-Vitamin] 1 tablet PO DAILY 12/05/20 01/26/21 History melatonin 3 mg PO HS 01/26/21 01/26/21 History quetiapine 50 mg PO HS 01/26/21 01/26/21 History spironolactone 50 mg PO
[2021-01-26] MEDS: SODIUM CHLORIDE 0.9% IV 1,000 ML 100 ML IV CONT (23:16)
[2021-01-26] MEDS: levETIRAcetam 500 MG TABLET PO (23:17)
[2021-01-26] MEDS: MELATONIN 3 MG TABLET PO (23:17)
[2021-01-26] MEDS: QUEtiapine FUMARATE 25 MG TABLET 50 MG PO (23:17)
[2021-01-27] VITALS (11 sets, daily range): BP systolic 100–135; BP diastolic 57–79; PULSE 70–112; RESP 16–20; TEMP 36.1–36.6; O2SAT 94–100
[2021-01-27 01:25] LABS: Hematocrit 26.2 % (37.0-47.0); Hemoglobin 7.8 g/dL (12.0-15.0)
[2021-01-27] MEDS: SODIUM CHLORIDE 0.9% IV 1,000 ML 100 ML IV CONT (04:09)
[2021-01-27 05:34] LABS: Basophils Percent Auto 0.7 % (0.2-1.2); Eosinophils Absolute Auto 0.1 K/mm3 (0-0.3); Eosinophils Percent Auto 3.3 % (0-4.4); Hematocrit 24.7 % (37.0-47.0); Hemoglobin 7.2 g/dL (12.0-15.0); Immature Granulocyte Absolute 0.02 K/mm3 (0.00-0.031); Immature Granulocyte Percent A 0.5 % (0-0.5); Lymphocytes Absolute Auto 0.72 K/mm3 (0.9-3.2); Lymphocytes Percent Auto 17.2 % (18.3-44.2); Mean Corpuscular HGB Conc 29.1 g/dl (32-36); Mean Corpuscular Hemoglobin 25.4 pg (26-34); Mean Corpuscular Volume 87.3 fl (80-100); Mean Platelet Volume 12.5 fl (7.4-10.4); Monocytes Absolute Auto 0.8 K/mm3 (0.1-0.6); Monocytes Percent Auto 17.9 % (2.6-8.5); Neutrophils Absolute Auto 2.5 K/mm3 (1.3-6.7); Neutrophils Percent Auto 60.4 % (45.5-73.1); Platelet Count Result 78 k/mm3 (150-375); Red Blood Count 2.83 M/mm3 (4.2-5.4); Red Cell Distribution Width 17.6 % (11.5-14.5); White Blood Count 4.2 K/mm3 (4.5-10.0)
[2021-01-27 05:52] LABS: Alanine Aminotransferase 18 U/L (4-35); Alkaline Phosphatase 74 U/L (38-126); Anion Gap 14 mmol/L (8-16); Aspartate Amino Transferase 30 U/L (14-36); Bilirubin,Total 0.6 mg/dL (0.2-1.3); Blood Urea Nitrogen 10 mg/dL (7-17); Calcium 8.6 mg/dL (8.4-10.2); Carbon Dioxide 23 mmol/L (22-30); Chloride 98 mmol/L (98-107); Estimated CRCL calculation 83 ml/min; Estimated Glomerular Filt Rate > 60; Glucose 84 mg/dL (65-110); Potassium 3.2 mmol/L (3.4-5.0); Sodium 135 mmol/L (137-145)
[2021-01-27 05:57] LABS: Iron 14 ug/dL (37-170)
[2021-01-27 06:06] LABS: Percent Iron Saturation 4 % (20-50)
[2021-01-27 06:33] LABS: Ferritin 8.08 ng/mL (6.24-137)
[2021-01-27 07:11] LABS: Hypochromasia 1+ (NORMAL); Platelet Estimate Decreased (Adequate)
[2021-01-27 07:12] LABS: Anisocytosis 1+ (NORMAL); Microcytosis 1+ (NORMAL)
--- NOTE | 2021-01-27 07:34 | P.PNIM_ITS ---
Progress Note: A&P Assessment and Plan (1) Seizure disorder: Code(s): G40.909 - Epilepsy, unspecified, not intractable, without status epilepticus Status: Acute Assessment and Plan: * Continue home levetiracetam 500mg PO BID * Consider increasing to 750mg PO BID * Consider Neurology consult (2) Anemia: Qualifiers: Anemia type: iron deficiency Iron deficiency anemia type: chronic blood loss Qualified Code(s): D50.0 - Iron deficiency anemia secondary to blood loss (chronic) Code(s): D64.9 - Anemia, unspecified Status: Acute Assessment and Plan: * reports her last hemoglobin was 10 * currently a 7.2/24.7 * Iron: 14, TIBC 386, % sat 4, Ferritin 8.08 * Intolerant of PO iron * Folic acid 1mg PO daily, Thiamine 100mg PO daily * no obvious source of bleeding evident * Occult blood test * Monitor H&H * No history of any chronic NSAIDs use * Last small bowel enteroscopy and capsule completed 08/2020 which was unremark able. * consult GI thank you for recommendations * Continue on PPI, Protonix 40mg IV Q12hr (3) SHERLEY (iron deficiency anemia): Code(s): D50.9 - Iron deficiency anemia, unspecified Status: Acute Assessment and Plan: * See above (4) Anxiety: Code(s): F41.9 - Anxiety disorder, unspecified Status: Acute Assessment and Plan: * Continue Buspar 10mg PO BID * Lorazepam 0.5mg PO TID * Trend symptoms (5) History of chronic pancreatitis: Code(s): Z87.19 - Personal history of other diseases of the digestive system Status: Acute Assessment and Plan: * Lipase 65 * Fluids 100ml/hr * ETOH <10 * Lipase/Amylase/Protease 2 cap TID * Continue creon 1 cap TID (6) MGUS (monoclonal gammopathy of unknown significance): Code(s): D47.2 - Monoclonal gammopathy Status: Acute Assessment and Plan: * Monitor * Treated outpatient (7) Fatigue: Code(s): R53.83 - Other fatigue Status: Acute Assessment and Plan: * Reports new onset of fatigue * Could be related to medications * Trend symptoms * Could be from anemia (8) Depression: Code(s): F32.9 - Major depressive disorder, single episode, unspecified Status: Acute Assessment and Plan: * Continue home desvenlafaxine 50mg PO daily * Seroquel 50mg PO HS * Trend mood (9) Alcohol abuse: Code(s): F10.10 - Alcohol abuse, uncomplicated Status: Acute Assessment and Plan: * Sober x 1 year * ETOH <10 (10) Thrombocytopenia: Code(s): D69.6 - Thrombocytopenia, unspecified Status: Acute Assessment and Plan: * PLT 78 today * Trend * Chronic from ETOH abuse (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
--- NOTE | 2021-01-27 07:34 | PM.IMPN ---
Progress Note: A&P Assessment and Plan (1) Seizure disorder: Code(s): G40.909 - Epilepsy, unspecified, not intractable, without status epilepticus Status: Acute Assessment and Plan: Continue home levetiracetam 500mg PO BID Consider increasing to 750mg PO BID Consider Neurology consult (2) Anemia: Qualifiers: Anemia type: iron deficiency Iron deficiency anemia type: chronic blood loss Qualified Code(s): D50.0 - Iron deficiency anemia secondary to blood loss (chronic) Code(s): D64.9 - Anemia, unspecified Status: Acute Assessment and Plan: reports her last hemoglobin was 10 currently a 7.2/24.7 Iron: 14, TIBC 386, % sat 4, Ferritin 8.08 Intolerant of PO iron Folic acid 1mg PO daily, Thiamine 100mg PO daily no obvious source of bleeding evident Occult blood test Monitor H&H No history of any chronic NSAIDs use Last small bowel enteroscopy and capsule completed 08/2020 which was unremarkable. consult GI thank you for recommendations Continue on PPI, Protonix 40mg IV Q12hr (3) SHERLEY (iron deficiency anemia): Code(s): D50.9 - Iron deficiency anemia, unspecified Status: Acute Assessment and Plan: See above (4) Anxiety: Code(s): F41.9 - Anxiety disorder, unspecified Status: Acute Assessment and Plan: Continue Buspar 10mg PO BID Lorazepam 0.5mg PO TID Trend symptoms (5) History of chronic pancreatitis: Code(s): Z87.19 - Personal history of other diseases of the digestive system Status: Acute Assessment and Plan: Lipase 65 Fluids 100ml/hr ETOH <10 Lipase/Amylase/Protease 2 cap TID Continue creon 1 cap TID (6) MGUS (monoclonal gammopathy of unknown significance): Code(s): D47.2 - Monoclonal gammopathy Status: Acute Assessment and Plan: Monitor Treated outpatient (7) Fatigue: Code(s): R53.83 - Other fatigue Status: Acute Assessment and Plan: Reports new onset of fatigue Could be related to medications Trend symptoms Could be from anemia (8) Depression: Code(s): F32.9 - Major depressive disorder, single episode, unspecified Status: Acute Assessment and Plan: Continue home desvenlafaxine 50mg PO daily Seroquel 50mg PO HS Trend mood (9) Alcohol abuse: Code(s): F10.10 - Alcohol abuse, uncomplicated Status: Acute Assessment and Plan: Sober x 1 year ETOH <10 (10) Thrombocytopenia: Code(s): D69.6 - Thrombocytopenia, unspecified Status: Acute Assessment and Plan: PLT 78 today Trend Chronic from ETOH abuse (11) 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 Status: Acute Assessment and Plan: ABD CT from 12/18/19 showed no obstruction with stent placement Lipase 65 (12) Left hip pain: Code(s): M25.552 - Pain in left hip Status: Acute Assessment and Plan: left hip pain noted on physical exam Left hip xray negative for any abnormalities Toradol x 1 Time Spent With Patient Time with patient: Greater than 35 minutes Subjective Date/time seen: 01/27/21 07:34 Interval history: Date/Time: 01/26/21 21:48 Narrative: this is a 50-year-old female with a past medical history of seizures on anti seizure medication, 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 She feels like she may be going to have seizure and that the primary reason she came to the ED today. See our also Maged that she has been feeling extremely weak and tired over the past few days. She reports he had blood work done 2 weeks ago when her hemoglobin was 10.6. She is currently at 7.6 in the ER today. However denies any blood
[2021-01-27 07:55] LABS: Immature Reticulocyte Fraction 40.9 % (3.0-15.9); Reticulocyte Hemoglobin Conten 27.1 pg (28.2-35.7); Reticulocyte Percent 2.93 % (0.7-4.3); Reticulocytes Absolute 0.08 B/L (32.2-175.7)
[2021-01-27 08:04] LABS: Transferrin 276 mg/dL (206-381)
[2021-01-27] MEDS: LORazepam (*CRX) 0.5 MG TABLET PO ×2 (09:06→21:07)
[2021-01-27 09:08] LABS: Folic Acid > 20.0 ng/mL (2.76->20)
[2021-01-27] MEDS: CHOLECALCIFEROL 1,000 UNITS TABLET 5000 UNITS PO (10:50)
[2021-01-27] MEDS: GABAPENTIN 300 MG CAPSULE PO ×3 (10:50→17:19)
[2021-01-27] MEDS: levETIRAcetam 500 MG TABLET PO ×2 (10:50→21:03)
[2021-01-27] MEDS: THIAMINE HCL 100 MG TABLET PO (10:50)
[2021-01-27] MEDS: FOLIC ACID 1 MG TABLET PO (10:51)
[2021-01-27] MEDS: MULTIVITAMINS THERAPEUTIC TAB (*BKC) 1 TABLET PO (10:51)
[2021-01-27] MEDS: SPIRONOLACTONE 50 MG TABLET PO (10:51)
[2021-01-27] MEDS: busPIRone HCL 10 MG TABLET PO ×2 (10:51→17:18)
[2021-01-27 12:26] LABS: Hematocrit 25.6 % (37.0-47.0); Hemoglobin 7.5 g/dL (12.0-15.0)
[2021-01-27] MEDS: KETOROLAC 15 MG/ML VIAL (*BKC) IV PUSH (13:26)
[2021-01-27] MEDS: LIPASE/AMYLASE/PROTEASE 12,000 UNITS CAP 2 CAP PO ×3 (13:27→17:18)
[2021-01-27] MEDS: DESVENLAFAXINE SUCCINATE 50 MG TAB.ER.24H PO (13:29)
[2021-01-27] MEDS: PANTOPRAZOLE SODIUM IV 40 MG VIAL IV PUSH ×2 (15:02→21:03)
[2021-01-27] MEDS: SODIUM CHLORIDE 0.9% IV 250 ML 30 ML IV CONT (17:17)
[2021-01-27] MEDS: POTASSIUM CHLORIDE 20 MEQ TABLET 40 MEQ PO (17:17)
[2021-01-27] MEDS: MELATONIN 3 MG TABLET PO (21:03)
[2021-01-27] MEDS: QUEtiapine FUMARATE 25 MG TABLET 50 MG PO (21:03)
[2021-01-28 01:35] LABS: Hematocrit 26.7 % (37.0-47.0); Hemoglobin 8.1 g/dL (12.0-15.0)
[2021-01-28 03:50] VITALS: BP 102/68; PULSE 77; RESP 20; TEMP 36.2; O2SAT 92
[2021-01-28 05:40] LABS: Basophils Percent Auto 0.2 % (0.2-1.2); Eosinophils Absolute Auto 0.1 K/mm3 (0-0.3); Eosinophils Percent Auto 1.7 % (0-4.4); Hematocrit 27.3 % (37.0-47.0); Hemoglobin 8.4 g/dL (12.0-15.0); Immature Granulocyte Absolute 0.01 K/mm3 (0.00-0.031); Immature Granulocyte Percent A 0.2 % (0-0.5); Lymphocytes Absolute Auto 0.51 K/mm3 (0.9-3.2); Lymphocytes Percent Auto 12.2 % (18.3-44.2); Mean Corpuscular HGB Conc 30.8 g/dl (32-36); Mean Corpuscular Hemoglobin 26.8 pg (26-34); Mean Corpuscular Volume 87.2 fl (80-100); Mean Platelet Volume 12.2 fl (7.4-10.4); Monocytes Absolute Auto 0.6 K/mm3 (0.1-0.6); Monocytes Percent Auto 14.1 % (2.6-8.5); Neutrophils Percent Auto 71.6 % (45.5-73.1); Platelet Count Result 91 k/mm3 (150-375); Red Blood Count 3.13 M/mm3 (4.2-5.4); Red Cell Distribution Width 17.4 % (11.5-14.5); White Blood Count 4.2 K/mm3 (4.5-10.0)
[2021-01-28 05:55] LABS: Alanine Aminotransferase 19 U/L (4-35); Albumin Level 3.6 g/dL (3.5-5.1); Alkaline Phosphatase 76 U/L (38-126); Anion Gap 8 mmol/L (8-16); Aspartate Amino Transferase 30 U/L (14-36); Bilirubin,Total 0.5 mg/dL (0.2-1.3); Blood Urea Nitrogen 9 mg/dL (7-17); Calcium 8.8 mg/dL (8.4-10.2); Carbon Dioxide 25 mmol/L (22-30); Chloride 106 mmol/L (98-107); Estimated CRCL calculation 83 ml/min; Estimated Glomerular Filt Rate > 60; Glucose 120 mg/dL (65-110); Magnesium 1.5 mg/dL (1.6-2.3); Potassium 4.1 mmol/L (3.4-5.0); Sodium 139 mmol/L (137-145)
[2021-01-28] MEDS: LIPASE/AMYLASE/PROTEASE 12,000 UNITS CAP 2 CAP PO (08:25)
[2021-01-28] MEDS: SPIRONOLACTONE 50 MG TABLET PO (08:27)
[2021-01-28] MEDS: PANTOPRAZOLE SODIUM IV 40 MG VIAL IV PUSH (08:27)
[2021-01-28] MEDS: MAGNESIUM SULF 4 GM/WATER100ML 4 GM/100 ML BAG IVPB (08:27)
[2021-01-28] MEDS: GABAPENTIN 300 MG CAPSULE PO (08:27)
[2021-01-28] MEDS: THIAMINE HCL 100 MG TABLET PO (08:27)
[2021-01-28] MEDS: DESVENLAFAXINE SUCCINATE 50 MG TAB.ER.24H PO (08:28)
[2021-01-28] MEDS: levETIRAcetam 250 MG TABLET 750 MG PO (08:28)
[2021-01-28] MEDS: MULTIVITAMINS THERAPEUTIC TAB (*BKC) 1 TABLET PO (08:28)
[2021-01-28] MEDS: busPIRone HCL 10 MG TABLET PO (08:28)
[2021-01-28] MEDS: FOLIC ACID 1 MG TABLET PO (08:28)
[2021-01-28] MEDS: CHOLECALCIFEROL 1,000 UNITS TABLET 5000 UNITS PO (08:29)
[2021-01-28] MEDS: LORazepam (*CRX) 0.5 MG TABLET PO (08:35)
--- NOTE | 2021-01-28 11:19 | P.DS_ITS ---
DS: Admitting Diagnosis Discharge Date Date of service: 01/28/21 08:35 Admitting Diagnosis Anemia DS: Discharge Diagnosis Discharge Diagnosis (1) Seizure disorder: Code(s): G40.909 - Epilepsy, unspecified, not intractable, without status epilepticus Status: Acute Assessment and Plan: * Continue home levetiracetam 500mg PO BID * Increasing to 750mg PO BID * Consider Neurology consult * Patient will follow up outpatient (2) Anemia: Qualifiers: Anemia type: iron deficiency Iron deficiency anemia type: chronic blood loss Qualified Code(s): D50.0 - Iron deficiency anemia secondary to blood loss (chronic) Code(s): D64.9 - Anemia, unspecified Status: Acute Assessment and Plan: * reports her last hemoglobin was 10 * currently a 8.4/27.3 * Iron: 14, TIBC 386, % sat 4, Ferritin 8.08 * Intolerant of PO iron * Folic acid 1mg PO daily, Thiamine 100mg PO daily * no obvious source of bleeding evident * Occult blood test * Monitor H&H * No history of any chronic NSAIDs use * Last small bowel enteroscopy and capsule completed 08/2020 which was unremarkable. * consult GI thank you for recommendations * Continue on PPI, Protonix 40mg IV Q12hr (3) SHERLEY (iron deficiency anemia): Code(s): D50.9 - Iron deficiency anemia, unspecified Status: Acute Assessment and Plan: * See above (4) Anxiety: Code(s): F41.9 - Anxiety disorder, unspecified Status: Acute Assessment and Plan: * Continue Buspar 10mg PO BID * Lorazepam 0.5mg PO TID * Trend symptoms (5) History of chronic pancreatitis: Code(s): Z87.19 - Personal history of other diseases of the digestive system Status: Acute Assessment and Plan: * Lipase 65 * Fluids 100ml/hr * ETOH <10 * Lipase/Amylase/Protease 2 cap TID * Continue creon 1 cap TID (6) MGUS (monoclonal gammopathy of unknown significance): Code(s): D47.2 - Monoclonal gammopathy Status: Acute Assessment and Plan: * Monitor * Treated outpatient (7) Fatigue: Code(s): R53.83 - Other fatigue Status: Acute Assessment and Plan: * Reports new onset of fatigue * Could be related to medications * Trend symptoms * Could be from anemia (8) Depression: Code(s): F32.9 - Major depressive disorder, single episode, unspecified Status: Acute Assessment and Plan: * Continue home desvenlafaxine 50mg PO daily * Seroquel 50mg PO HS * Trend mood (9) Alcohol abuse: Code(s): F10.10 - Alcohol abuse, uncomplicated Status: Acute Assessment and Plan: * Sober x 1 year * ETOH <10 (10) Thrombocytopenia: Code(s): D69.6 - Thrombocytopenia, unspecified Status: Acute Assessment and Plan: * PLT 78 today * Trend * Chronic from ETOH abuse (11) 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
--- NOTE | 2021-01-28 11:19 | PM.DS ---
DS: Admitting Diagnosis Discharge Date Date of service: 01/28/21 08:35 Admitting Diagnosis Anemia DS: Discharge Diagnosis Discharge Diagnosis (1) Seizure disorder: Code(s): G40.909 - Epilepsy, unspecified, not intractable, without status epilepticus Status: Acute Assessment and Plan: Continue home levetiracetam 500mg PO BID Increasing to 750mg PO BID Consider Neurology consult Patient will follow up outpatient (2) Anemia: Qualifiers: Anemia type: iron deficiency Iron deficiency anemia type: chronic blood loss Qualified Code(s): D50.0 - Iron deficiency anemia secondary to blood loss (chronic) Code(s): D64.9 - Anemia, unspecified Status: Acute Assessment and Plan: reports her last hemoglobin was 10 currently a 8.4/27.3 Iron: 14, TIBC 386, % sat 4, Ferritin 8.08 Intolerant of PO iron Folic acid 1mg PO daily, Thiamine 100mg PO daily no obvious source of bleeding evident Occult blood test Monitor H&H No history of any chronic NSAIDs use Last small bowel enteroscopy and capsule completed 08/2020 which was unremarkable. consult GI thank you for recommendations Continue on PPI, Protonix 40mg IV Q12hr (3) SHERLEY (iron deficiency anemia): Code(s): D50.9 - Iron deficiency anemia, unspecified Status: Acute Assessment and Plan: See above (4) Anxiety: Code(s): F41.9 - Anxiety disorder, unspecified Status: Acute Assessment and Plan: Continue Buspar 10mg PO BID Lorazepam 0.5mg PO TID Trend symptoms (5) History of chronic pancreatitis: Code(s): Z87.19 - Personal history of other diseases of the digestive system Status: Acute Assessment and Plan: Lipase 65 Fluids 100ml/hr ETOH <10 Lipase/Amylase/Protease 2 cap TID Continue creon 1 cap TID (6) MGUS (monoclonal gammopathy of unknown significance): Code(s): D47.2 - Monoclonal gammopathy Status: Acute Assessment and Plan: Monitor Treated outpatient (7) Fatigue: Code(s): R53.83 - Other fatigue Status: Acute Assessment and Plan: Reports new onset of fatigue Could be related to medications Trend symptoms Could be from anemia (8) Depression: Code(s): F32.9 - Major depressive disorder, single episode, unspecified Status: Acute Assessment and Plan: Continue home desvenlafaxine 50mg PO daily Seroquel 50mg PO HS Trend mood (9) Alcohol abuse: Code(s): F10.10 - Alcohol abuse, uncomplicated Status: Acute Assessment and Plan: Sober x 1 year ETOH <10 (10) Thrombocytopenia: Code(s): D69.6 - Thrombocytopenia, unspecified Status: Acute Assessment and Plan: PLT 78 today Trend Chronic from ETOH abuse (11) 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 Upon arrival patient had an H&H of 7.2/24.7. Patient stated that her hemoglobin about 3 weeks ago was 10.6. Anemia labs revealed iron deficient anemia. Patient was on oral iron however her GI doctor took her off for abdominal pain with nausea vomiting. No sign of bleeding noted. Patient sees a GI doctor at [facility] and will
[2021-01-31 06:09] LABS: Levetiracetam Keppra 20.5 mcg/mL (12.0-46.0)
== END 2021-01-28 13:38 | disposition home or self-care (01) ==
LOC: ANHED 18:00 → ANH2MED 01-27 11:10
PROVIDERS: Internal Medicine; Nurse Practitioner; Admitting Provider Internal Medicine; Emergency Provider Family Medicine; PCP Family Medicine; Visit Provider Internal Medicine Critical Care Medicine
DX: D50.0 Iron deficiency anemia secondary to blood loss (chronic) (principal); F41.9 Anxiety disorder, unspecified; D69.6 Thrombocytopenia, unspecified; D47.2 Monoclonal gammopathy; G40.909 Epilepsy, unspecified, not intractable, without status epilepticus; R06.09 Other forms of dyspnea; R53.83 Other fatigue; F10.10 Alcohol abuse, uncomplicated; I10 Essential (primary) hypertension; M25.552 Pain in left hip
CPT/HCPCS: 36415; 36430; 73502; 80053; 80177; 80307; 81001; 82607; 82728; 82746; 83540; 83550; 83605; 83690; 83735; 84466; 85014; 85018; 85025; 85046; 85055; 85380; 86850; 86900; 86901; 86920; 93005; 96361; 96365; 96366; 96374; 96375; 96376; 99285; A9270; C9113; G0378; J1756; J1885; J2060; J3475; J7030; J7050; P9016

== ENCOUNTER 2021-03-31 12:41 | Observation (INO) | payer BC, SELFPAY ==
[2021-03-31] VITALS (15 sets, daily range): BP systolic 113–148; BP diastolic 77–98; PULSE 75–139; RESP 12–24; TEMP 36.1–36.8; O2SAT 99–100; BMI 28.6
--- NOTE | ~2021-03-31 | CT_ITS ---
EXAMINATION: CTA chest PE protocol DATE: 03/31/2021 16:59 INDICATION: Dyspnea TECHNIQUE: Computed tomography (CT) pulmonary angiogram of the chest was performed with 100 mL Omnipa que-350 intravenous contrast. Additional 3D reconstructions utilizing coronal maximum intensity proje ction (MIP) were performed. Automated exposure control and iterative reconstruction technique were em ployed. The dose-length product was 587.01 mGy-cm. COMPARISON: 11/24/2018 FINDINGS: Excellent contrast opacification of the pulmonary arteries. There is mild streak artifact from dense contrast in the superior vena cava and right atrium. No significant motion artifact yielding diagnost ic for the study which demonstrates no pulmonary embolism. Mild atelectasis along the mildly elevated left hemidiaphragm. No pneumonia, pulmonary edema, pleural effusion or pneumothorax. Heart size is n ormal. No pericardial effusion. Thoracic aorta is normal in caliber with no dissection. No pathologic ally enlarged abdominal or pelvic lymphadenopathy. Diffuse hepatic steatosis. Interval decrease in si ze of a now approximately 2.4 x 2.5 cm loculated fluid collection situated between the tail of the pa ncreas, the spleen and the splenic flexure of the colon most consistent with a residual pancreatic ps eudocysts related to prior pancreatitis. There is mild residual stranding extending caudally along th e left anterior pararenal space and superior paracolic gutter which could represent residual scarring but could not absolutely exclude recurrent acute interstitial pancreatitis and would correlate with amylase and lipase levels. Multiple dystrophic calcification scattered throughout the pancreas consis tent with sequela of chronic pancreatitis. Mild upper thoracic levocurvature with mild spondylosis. IMPRESSION: 1. No pulmonary embolism or other acute cardiopulmonary disease. 2. Decrease in size of a now approximately 2.5 cm fluid collection situated between the tail of pancr eas and the spleen with small amount of surrounding from trace stranding. This most likely represents small amount of residual scarring surrounding a chronic pancreatic pseudocysts related to earlier pa ncreatitis but would correlate with amylase and lipase levels and for any clinical signs/symptoms of recurrent acute pancreatitis. 3. Diffuse hepatic steatosis. Reviewed, dictated and finalized at location H. ER [facility] IMPRESSION: 1. No pulmonary embolism or other acute cardiopulmonary disease. 2. Decrease in size of a now approximately 2.5 cm fluid collection situated bet ween the tail of pancreas and the spleen with small amount of surrounding from trace stranding. 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 3. Diffuse hepatic steatosis.
--- NOTE | ~2021-03-31 | XR_ITS ---
XR chest 1V portable DATE: 03/31/2021 13:03 INDICATION: Shortness of breath TECHNIQUE: Portable AP chest on 03/31/2021 at 1259 hours COMPARISON: 12/04/2020 portable AP chest FINDINGS: Normal heart size. No hilar or mediastinal enlargement. The lungs are clear of infiltrate o r consolidation. No pleural effusion or pulmonary vascular congestion or pneumothorax. IMPRESSION: No active cardiopulmonary disease Reviewed, dictated and finalized at location B. [facility]
--- NOTE | 2021-03-31 12:52 | ECG_ITS ---
Measurements Intervals [place] Rate: 113 P: 30 IL: 126 QRS: 25 QRSD: 82 T: -6 QT: 314 QTc: 431 Interpretive Statements SINUS TACHYCARDIA CANNOT RULE OUT SEPTAL INFARCT, AGE INDETERMINATE NONSPECIFIC T-WAVE ABNORMALITY- ANTEROLAT/INF LEADS ABNORMAL ECG Electronically Signed On 03-31-2021 16:58:48 OPERATIONS LIAISON by Tyler Lord D.O.
--- NOTE | 2021-03-31 12:53 | ED.GENADULT ---
HPI - General Adult General Chief complaint: Recheck/Abnormal Lab/Rx Stated complaint: Needs Blood Trasnfusion Time Seen by Provider: 03/31/21 12:46 Source: RN notes reviewed History of Present Illness HPI narrative: Patient presents emergency department from home for weakness. Patient states that she has a history of anemia and is followed by Dr. Pisano states she has had numerous work-ups and they believe it is secondary to an AVM. She states that she had a hemoglobin drawn on this past and was 7.9 there are transferred her up for an outpatient transfusion but she has O- blood and there is a shortage of cannot get it set up for his outpatient she had called him today noting she had increased weakness with increased dyspnea and heart rate with ambulating and they recommend she come to the ER for further evaluation patient states that weakness is worse with ambulating. She denies any chest pain abdominal pain nausea vomiting Related Data Home Medications Medication Instructions Recorded Confirmed gabapentin 300 mg capsule 300 mg PO TID cap 08/26/20 01/26/21 Creon 1 cap PO TID 12/04/20 01/26/21 buspirone 10 mg PO BID 12/04/20 01/26/21 desvenlafaxine 50 mg PO DAILY 12/04/20 01/26/21 lorazepam 0.5 mg PO TID PRN 12/04/20 01/26/21 ondansetron 4 mg PO Q6H PRN 12/04/20 01/26/21 cholecalciferol (vitamin D3) 125 mcg PO DAILY 12/05/20 01/26/21 folic acid 1 mg PO DAILY 12/05/20 01/26/21 multivitamin [Daily Multi-Vitamin] 1 tablet PO DAILY 12/05/20 01/26/21 melatonin 3 mg PO HS 01/26/21 01/26/21 quetiapine 50 mg PO HS 01/26/21 01/26/21 spironolactone 50 mg PO DAILY 01/26/21 01/26/21 quetiapine mg PO 03/31/21 Allergies Allergy/AdvReac Type Severity Reaction Status Date / Time No Known Allergies Allergy Verified 01/27/21 00:50 Review of Systems Review of Systems: Gen.: Denies fevers or chills ENT: Denies congestion Respiratory: See HPI CV: Denies chest pain or palpitations GI: Denies abdominal pain nausea, emesis or diarrhea Musculoskeletal: Denies back pain or muscle pain Neuro: Reports weakness Skin: Denies rash Except as documented, all other systems reviewed and negative FORMERLY [facility], [facility]–1983 Past Medical History Medical History Anxiety Biliary stricture Chronic pancreatitis Depression Esophageal varices Essential (primary) hypertension H/O adenomatous polyp of colon MGUS (monoclonal gammopathy of unknown significance) Portal vein thrombosis Seizure Surgical History Surgical History History of lumpectomy of right breast Presence of pancreatic duct stent Family History Family History Father Hypertension Cerebrovascular accident Congestive heart failure Mother Hypertension Rheumatoid arthritis Sibling Hypertension Anxiety Social History Social History Smoking status: Never smoker Second hand tobacco smoke exposure: No Alcohol intake: former Drinks per week: 20 Alcohol use details: 12/2017 Substance use: never Substance use type: does not use Gender identity (if verbalized by the patient): Female Sexual Orientation (if Verbalized by the Patient): Straight or Heterosexual Spiritual care concerns: No Exam Narrative: APPEARANCE: No acute distress, nontoxic, resting in bed EYES: EOMI HEENT: Normocephalic, atraumatic, OMM RESPIRATORY: No respiratory distress Clear to auscultation bilaterally with no rhonchi wheezing or rales. CARDIOVASCULAR: Tachycardic and regular without murmurs rubs or gallops. ABDOMINAL: Soft, nontender, nondistended, no rebound or guarding MUSCULOSKELETAl: Moves all extremities. No clubbing, cyanosis or edema. NEURO: Awake and alert. Following commands, speech normal, no focal deficits SKIN:: Warm, dry. No rashes lesions or abrasions PSYCHIATRIC:
--- NOTE | 2021-03-31 13:41 | PC.NURSE ---
attempted IV access and blood draw and was unsuccessful. 2nd RN in room trying for access.
[2021-03-31 13:51] LABS: Basophils Percent Auto 0.2 % (0.2-1.2); Eosinophils Absolute Auto 0.1 K/mm3 (0-0.3); Hemoglobin 7.8 g/dL (12.0-15.0); Immature Granulocyte Absolute 0.02 K/mm3 (0.00-0.031); Immature Granulocyte Percent A 0.4 % (0-0.5); Lymphocytes Absolute Auto 0.34 K/mm3 (0.9-3.2); Mean Corpuscular HGB Conc 28.9 g/dl (32-36); Mean Corpuscular Hemoglobin 24.1 pg (26-34); Mean Corpuscular Volume 83.6 fl (80-100); Mean Platelet Volume 10.9 fl (7.4-10.4); Monocytes Absolute Auto 0.6 K/mm3 (0.1-0.6); Monocytes Percent Auto 11.3 % (2.6-8.5); Neutrophils Absolute Auto 3.9 K/mm3 (1.3-6.7); Neutrophils Percent Auto 80.1 % (45.5-73.1); Nucleated Red Blood Cells Perc 0.6 % (0.0-0.2); Platelet Count Result 151 k/mm3 (150-375); Red Blood Count 3.23 M/mm3 (4.2-5.4); Red Cell Distribution Width 16.9 % (11.5-14.5); White Blood Count 4.9 K/mm3 (4.5-10.0)
[2021-03-31 14:01] LABS: INR 1.1; Prothrombin Time 13.8 Seconds (11.1-14.7)
[2021-03-31 14:02] LABS: Partial Thromboplastin Time 28.8 SECONDS (22.3-36.8)
[2021-03-31 14:15] LABS: Anisocytosis 1+ (NORMAL); Hypochromasia 1+ (NORMAL); Platelet Estimate Adequate (Adequate)
[2021-03-31 14:22] LABS: Alanine Aminotransferase 18 U/L (4-35); Albumin Level 4.8 g/dL (3.5-5.1); Alkaline Phosphatase 95 U/L (38-126); Anion Gap 13 mmol/L (8-16); Aspartate Amino Transferase 33 U/L (14-36); Bilirubin,Total 0.7 mg/dL (0.2-1.3); Blood Urea Nitrogen 10 mg/dL (7-17); Carbon Dioxide 25 mmol/L (22-30); Chloride 90 mmol/L (98-107); Estimated CRCL calculation 85 ml/min; Estimated Glomerular Filt Rate > 60; Glucose 101 mg/dL (65-110); Potassium 4.1 mmol/L (3.4-5.0); Sodium 128 mmol/L (137-145)
[2021-03-31] MEDS: SODIUM CHLORIDE 0.9% IV 1,000 ML 999 ML IV CONT ×2 (14:36→18:10)
--- NOTE | 2021-03-31 15:28 | PC.NURSE ---
pt's IV blown when starting fluids. Other RN attempting IV access w/ ultrasound.
[2021-03-31 15:32] LABS: D Dimer 0.96 ug/mL (<0.48)
[2021-03-31] MEDS: MORPHINE SULFATE (*CRX) 2 MG/ML INJ IV PUSH ×2 (16:34→22:11)
--- NOTE | 2021-03-31 19:00 | PC.NURSE ---
assuming care of pt.
--- NOTE | 2021-03-31 19:52 | PC.NURSE ---
Pt walked from room to end of [facility] and back. Increased heart rate to 140's. Pt c/o weakness when walking and states, I feel like i just ran three miles.
[2021-03-31 20:29] LABS: Troponin I < 0.012 ng/mL (0.000-0.034)
--- NOTE | 2021-03-31 20:30 | PM.IMHP ---
H&P: HPI History of Present Illness Date/Time: 03/31/21 20:00 Chief Complaint: Weakness and shortness of breath. Narrative: This is a 50-year-old female with iron deficiency anemia, chronic pancreatitis, hypertension, seizures, depression, anxiety, portal vein thrombosis, and colon polyps who presented to the emergency department earlier today from home for evaluation of weakness and shortness of breath. She is followed by Dr. Binu Pisano (hematology) for her anemia and she has required iron and blood transfusions in the past. It is my understanding that her anemia has been attributed to intermittent, occult GI blood loss due to AVMs and it is noted that she had a bone marrow biopsy done within the last year or so which was completely normal. In any event, the patient tells me that she has become less tolerant to lower hemoglobin and she is now symptomatic with a hemoglobin around 8 grams. She had blood work drawn last week and was going to have an outpatient transfusion however there was reportedly a shortage of O negative blood and she was set up for an iron transfusion today. Unfortunately she fell to fatigued, weak, and short of breath to drive to her health lead's office for transfusion and instead she was directed to the emergency department. In the emergency department she was found to be tachycardic, worse upon standing and ambulating and she reports feeling very short of breath and fatigued with those activities. Her blood pressures however remained stable. Hemoglobin and hematocrit today were 7.8 and 27% respectively and she was also noted to have a low sodium and chloride of 128 and 90 respectively. Patient does admit that she has probably not been eating and drinking well and she was given 2 L of normal saline though she remained tachycardic and symptomatic when up ambulating thereafter and she is now being admitted for transfusion. She was also found to have an elevated D-dimer although a subsequent CTA of the chest was negative for PE. As she is on iron supplementation is not unusual for her to have dark stools and she has not noticed a change in those. She denies syncope and near-syncope. No fever, chills, or sweats. She denies chest pain, pleuritic pain, and palpitations. Is not unusual for her to have nausea and occasional vomiting and that is unchanged. She denies hematemesis. Review of Systems Review of Systems: Twelve systems were reviewed. No cold or flu symptoms. She denies sick contacts. Patient reports intermittent low back pain, sometimes worse with ambulation. It seems to be worse when her hemoglobin is low as well. No injuries. Except as documented, all other systems were reviewed and are negative. [facility] Past Medical History Medical History (Updated 03/31/21 @ 23:18 by Tonja Swenson PA-C) Adenomatous colon polyp Anxiety Biliary stricture Chronic pancreatitis With history of pseudocyst. Depression Esophageal varices Essential (primary) hypertension Gastroesophageal reflux disease History of alcohol abuse Sober since 2018. Iron deficiency anemia Monoclonal gammopathy of unknown significance Poorly documented. Occult GI bleeding Attributed to AVMs. Portal vein thrombosis Seizure disorder Surgical History Surgical History (Updated 03/31/21 @ 22:08 by Tonja Swenson PA-C) History of colonoscopy with polypectomy History of lumpectomy of right breast Presence of pancreatic duct stent Family History Family History Father Hypertension Cerebrovascular accident Congestive heart failure Mother Hypertension Rheumatoid arthritis Sibling Hypertension Anxiety Social History Social History (Updated 03/31/21 @ 23:09 by Tonja Swenson PA-C) Social History: Surrogate decision maker: Patricia Jerome, mother. Code status: Full code. Smoking status: Never smoker Second hand tobacco smoke exposure: No Alcohol intake: former Drinks p
[2021-03-31 21:20] LABS: Add Urine Microscopic? YES; Appearance Urine Clear (Clear); Bilirubin Urine Negative (Negative); Blood Urine Negative (Negative); Color Urine Yellow (Yellow); Glucose Urine UA Negative (Negative); Ketones Urine 1+ mg/dL (Negative); Leukocyte Esterase Ur Negative LEU/UL (Negative); Mucus Urine Rare /lpf; Nitrate Urine Negative (Negative); Protein Urine Negative (Negative); Squamous Epithelial Cell Urine Moderate /hpf (Few); Urobilinogen Urine Negative mg/dL (<2.0); WBC Urine 0-3 /hpf
[2021-03-31 21:25] LABS: Specific Grav Ur 1.059 (1.001-1.035)
--- NOTE | 2021-03-31 21:41 | PC.NURSE ---
Rn spoke with hospitalist regarding pt request for nightly meds that were confirmed by RN and pt and additional meds. MD gave VO for more pain medication and states she will address home medications.
--- NOTE | 2021-03-31 23:15 | ADMGEN ---
This patient, Adina Jerome, was admitted to 3 Medical Room 345-01. Patient oriented to hospital policies and general routines including ID bracelet, bed and alarms, visiting hours, pain management, procedures, bathroom and other care routines, personal items, smoking policy, room service/diet, and visiting hours. Information on how to activate the Rapid Response Team has been discussed. Patient are encouraged to report perceived risks to care and to ask questions if they do not understand what they are told or what they should do. Report received from Sulma in the ED.
[2021-04-01] VITALS (23 sets, daily range): BP systolic 94–139; BP diastolic 53–92; PULSE 67–117; RESP 16–24; TEMP 36–36.6; O2SAT 75–100
[2021-04-01 00:18] LABS: Anion Gap 13 mmol/L (8-16); Blood Urea Nitrogen 7 mg/dL (7-17); Calcium 8.3 mg/dL (8.4-10.2); Carbon Dioxide 22 mmol/L (22-30); Chloride 98 mmol/L (98-107); Estimated CRCL calculation 96 ml/min; Estimated Glomerular Filt Rate > 60; Glucose 78 mg/dL (65-110); Lipase 93 U/L (23-300); Potassium 3.9 mmol/L (3.4-5.0); Sodium 133 mmol/L (137-145)
[2021-04-01 00:26] LABS: Hematocrit 25.4 % (37.0-47.0); Hemoglobin 7.3 g/dL (12.0-15.0)
[2021-04-01 00:31] LABS: Troponin I < 0.012 ng/mL (0.000-0.034)
[2021-04-01] MEDS: LORazepam (*CRX) 0.5 MG TABLET PO ×2 (01:09→16:25)
[2021-04-01] MEDS: QUEtiapine FUMARATE 25 MG TABLET 50 MG PO ×2 (01:37→21:46)
[2021-04-01] MEDS: levETIRAcetam 250 MG TABLET 750 MG PO ×3 (01:37→21:46)
[2021-04-01] MEDS: MELATONIN 3 MG TABLET PO ×2 (01:38→21:46)
[2021-04-01] MEDS: busPIRone HCL 10 MG TABLET PO ×3 (01:38→16:26)
[2021-04-01] MEDS: GABAPENTIN 300 MG CAPSULE PO ×4 (01:38→16:26)
[2021-04-01 02:25] LABS: Free T4 Free Thyroxine Reflex 0.73 ng/dL (0.78-2.19)
[2021-04-01 02:32] LABS: Basophils Percent Auto 0.4 % (0.2-1.2); Eosinophils Absolute Auto 0.1 K/mm3 (0-0.3); Hematocrit 23.1 % (37.0-47.0); Immature Granulocyte Absolute 0.03 K/mm3 (0.00-0.031); Immature Granulocyte Percent A 0.6 % (0-0.5); Immature Platelet Fraction Pct 9.8 % (0.9-11.2); Lymphocytes Absolute Auto 0.61 K/mm3 (0.9-3.2); Lymphocytes Percent Auto 11.3 % (18.3-44.2); Mean Corpuscular Hemoglobin 24.8 pg (26-34); Mean Corpuscular Volume 85.6 fl (80-100); Monocytes Absolute Auto 0.5 K/mm3 (0.1-0.6); Monocytes Percent Auto 9.8 % (2.6-8.5); Neutrophils Absolute Auto 4.1 K/mm3 (1.3-6.7); Neutrophils Percent Auto 75.9 % (45.5-73.1); Platelet Count Result 146 k/mm3 (150-375); White Blood Count 5.4 K/mm3 (4.5-10.0)
[2021-04-01 02:37] LABS: Anion Gap 8 mmol/L (8-16); Blood Urea Nitrogen 7 mg/dL (7-17); Calcium 7.9 mg/dL (8.4-10.2); Carbon Dioxide 23 mmol/L (22-30); Chloride 100 mmol/L (98-107); Estimated CRCL calculation 83 ml/min; Estimated Glomerular Filt Rate > 60; Glucose 137 mg/dL (65-110); Magnesium 1.6 mg/dL (1.6-2.3); Potassium 3.7 mmol/L (3.4-5.0); Sodium 131 mmol/L (137-145)
[2021-04-01 02:48] LABS: Troponin I < 0.012 ng/mL (0.000-0.034)
[2021-04-01 03:14] LABS: Hemoglobin 6.7 g/dL (12.0-15.0)
[2021-04-01 03:26] LABS: Hypochromasia 1+ (NORMAL); Platelet Estimate Adequate (Adequate)
[2021-04-01 03:27] LABS: Poikilocytosis 1+ (NORMAL)
[2021-04-01] MEDS: SODIUM CHLORIDE 0.9% IV 250 ML 30 ML IV CONT ×2 (03:35→13:01)
[2021-04-01] MEDS: FOLIC ACID 1 MG TABLET PO (08:40)
[2021-04-01] MEDS: CHOLECALCIFEROL 1,000 UNITS TABLET 5000 UNITS PO (08:40)
[2021-04-01] MEDS: SPIRONOLACTONE 50 MG TABLET PO (08:40)
[2021-04-01] MEDS: LIPASE/AMYLASE/PROTEASE 12,000 UNITS CAP 2 CAP PO ×3 (08:41→16:26)
[2021-04-01] MEDS: MULTIVITAMINS THERAPEUTIC TAB (*BKC) 1 TABLET PO (08:42)
[2021-04-01] MEDS: HYDROcodone/acetaminophen (*CRX) 5-325 MG TABLET 1 TAB PO ×2 (09:27→19:03)
[2021-04-01 10:08] LABS: Hematocrit 27.3 % (37.0-47.0); Hemoglobin 8.1 g/dL (12.0-15.0); Immature Platelet Fraction Pct 14.1 % (0.9-11.2); Mean Corpuscular HGB Conc 29.7 g/dl (32-36); Mean Corpuscular Hemoglobin 25.6 pg (26-34); Mean Corpuscular Volume 86.1 fl (80-100); Red Blood Count 3.17 M/mm3 (4.2-5.4); Red Cell Distribution Width 16.5 % (11.5-14.5); White Blood Count 5.3 K/mm3 (4.5-10.0)
[2021-04-01 10:19] LABS: Anion Gap 8 mmol/L (8-16); Blood Urea Nitrogen 5 mg/dL (7-17); Calcium 8.3 mg/dL (8.4-10.2); Carbon Dioxide 21 mmol/L (22-30); Chloride 102 mmol/L (98-107); Estimated CRCL calculation 113 ml/min; Estimated Glomerular Filt Rate > 60; Glucose 109 mg/dL (65-110); Potassium 4.1 mmol/L (3.4-5.0); Sodium 131 mmol/L (137-145)
--- NOTE | 2021-04-01 12:28 | PM.IMPN ---
Progress Note: A&P Assessment and Plan (1) Iron deficiency anemia: Code(s): D50.9 - Iron deficiency anemia, unspecified Status: Acute Assessment and Plan: The patient is a 50-year-old female with a history of iron deficiency anemia, chronic pancreatitis, hypertension, seizures, depression, anxiety, portal vein thrombosis, and colon polyps who presented to the emergency department from home for evaluation of weakness and shortness of breath. She is followed by Dr. Binu Pisano (hematology) for her anemia and she has required iron and blood transfusions in the past. It is my understanding that her anemia has been attributed to intermittent, occult GI blood loss due to AVMs and it is noted that she had a bone marrow biopsy done within the last year or so which was completely normal. In any event, the patient tells me that she has become less tolerant to lower hemoglobin and she is now symptomatic with a hemoglobin around 8 grams. She had blood work drawn last week and was going to have an outpatient transfusion however there was reportedly a shortage of O negative blood and she was set up for an iron transfusion but she was not feeling well and instead came to the ER for further evaluation. In the emergency department she was found to be tachycardic, worse upon standing and ambulating and she reports feeling very short of breath and fatigued with those activities. Her blood pressures however remained stable. Hemoglobin and hematocrit today were 7.8 and 27% respectively and she was also noted to have a low sodium and chloride of 128 and 90 respectively. Patient does admit that she has probably not been eating and drinking well and she was given 2 L of normal saline though she remained tachycardic and symptomatic when up ambulating thereafter and she is now being admitted for transfusion. She was also found to have an elevated D-dimer although a subsequent CTA of the chest was negative for PE. She was admitted into the hospital for a blood transfusion and further monitoring of her H&H. Patient is still not feeling well and is symptomatic with fatigue, shortness of breath and tachycardia with exertion after 1 unit of blood was transfused. Her hemoglobin this morning was 8.1, hematocrit 27%. I talked to the patient and we will give her 1 more unit of blood as well as 1 dose of IV Venofer 500 mg and if she is feeling better than she can be discharged home this evening to follow-up with Dr. Pisano next week for further evaluation monitoring. Patient feels comfortable with that plan and if she is not feeling well we can continue to monitor her overnight and recheck labs in the morning. Continue monitoring at this time. (2) Symptomatic anemia: Code(s): D64.9 - Anemia, unspecified Status: Acute Assessment and Plan: See above. (3) Tachycardia: Code(s): R00.0 - Tachycardia, unspecified Status: Acute Assessment and Plan: Most likely due to hypovolemia from anemia and dehydration though after 2 L of normal saline she continued to become tachycardic, up to the 140s with ambulation. CTA negative for PE Telemetry showed normal sinus rhythm with a heart rate in the 70s, few episodes of sinus tachycardia 120-149 with exertion. Patient is also tachycardic with these episodes. Echocardiogram showed normal EF, 65-70%, normal diastolic function, otherwise normal echocardiogram. Will give the patient another unit of blood and IV iron. If she is feeling better, no more tachycardia she can be discharged home. Continue monitoring telemetry at this time. (4) Dehydration: Code(s): E86.0 - Dehydration Status: Acute Assessment and Plan: She received 2 L of normal saline in the ER. Appears to be euvolemic at this time. (5) Hyponatremia: Code(s): E87.1
--- NOTE | 2021-04-01 14:46 | PM.DS ---
DS: Summary Time Spent with Patient Time attestation: Total time spent providing and/or coordinating discharge services: DS: Data Data Completed and Pending Labs on day of discharge: Labs from last 24 hours 04/01/21 04/01/21 04/01/21 10:02 10:02 02:20 WBC 5.3 5.4 RBC 3.17 L 2.70 L Hgb 8.1 L 6.7 L* Hct 27.3 L 23.1 L MCV 86.1 85.6 MCH 25.6 L 24.8 L MCHC 29.7 L 29.0 L RDW 16.5 H 17.0 H Plt Count TNP 146 L MPV TNP 11.0 H Immature Gran % (Auto) 0.6 H Neut % (Auto) 75.9 H Lymph % (Auto) 11.3 L Ida % (Auto) 9.8 H Eos % (Auto) 2.0 Baso % (Auto) 0.4 Lymph # (Auto) 0.61 L Ida # (Auto) 0.5 Eos # (Auto) 0.1 Baso # (Auto) 0.0 Abs Immat Gran (auto) 0.03 Absolute Neuts (auto) 4.1 Absolute Nucleated RBC 0.0 Nucleated RBC % 0.0 Platelet Estimate Adequate % Immature Plt Fraction 14.1 H 9.8 Hypochromasia 1+ Poikilocytosis 1+ D-Dimer Sodium 131 L Potassium 4.1 Chloride 102 Carbon Dioxide 21 L Anion Gap 8 BUN 5 L Creatinine 0.50 L Estim Creat Clear Calc 113 Estimated GFR > 60 Glucose 109 Calcium 8.3 L Magnesium Troponin I Lipase TSH (Reflex) Free T4 Urine Color Urine Appearance Urine pH Ur Specific [place] Urine Protein Urine Glucose (UA) Urine Ketones Ur Blood (Man) Urine Nitrate Urine Bilirubin Urine Urobilinogen Leukocyte Esterase Rfl Urine RBC Urine WBC Ur Squamous Epith Cells Urine Mucus Blood Type Antibody Screen Crossmatch 04/01/21 03/31/21 03/31/21 02:20 23:48 23:48 WBC RBC Hgb Hct MCV MCH MCHC RDW Plt Count MPV Immature Gran % (Auto) Neut % (Auto) Lymph % (Auto) Ida % (Auto) Eos % (Auto) Baso % (Auto) Lymph # (Auto) Ida # (Auto) Eos # (Auto) Baso # (Auto) Abs Immat Gran (auto) Absolute Neuts (auto) Absolute Nucleated RBC Nucleated RBC % Platelet Estimate % Immature Plt Fraction Hypochromasia Poikilocytosis D-Dimer Sodium 131 L Potassium 3.7 Chloride 100 Carbon Dioxide 23 Anion Gap 8 BUN 7 Creatinine 0.70 Estim Creat Clear Calc 83 Estimated GFR > 60 Glucose 137 H Calcium 7.9 L Magnesium 1.6 Troponin I < 0.012 Lipase TSH (Reflex) 5.180 H Free T4 0.73 L Urine Color Urine Appearance Urine pH Ur Specific [place] Urine Protein Urine Glucose (UA) Urine Ketones Ur Blood (Man) Urine Nitrate Urine Bilirubin Urine Urobilinogen Leukocyte Esterase Rfl Urine RBC Urine WBC Ur Squamous Epith Cells Urine Mucus Blood Type Antibody Screen Crossmatch 03/31/21 03/31/21 03/31/21 23:48 23:48 23:48 WBC RBC Hgb 7.3 L Hct 25.4 L MCV MCH MCHC RDW Plt Count MPV Immature Gran % (Auto) Neut % (Auto) Lymph % (Auto) Ida % (Auto) Eos % (Auto) Baso % (Auto) Lymph # (Auto) Ida # (Auto) Eos # (Auto) Baso # (Auto) Abs Immat Gran (auto) Absolute Neuts (auto) Absolute Nucleated RBC Nucleated RBC % Platelet Estimate % Immature Plt Fraction Hypochromasia Poikilocytosis D-Dimer Sodium 133 L Potassium 3.9 Chloride 98 Carbon Dioxide 22 Anion Gap 13 BUN 7 Creatinine 0.60 L Estim Creat Clear Calc 96 Estimated GFR > 60 Glucose 78 Calcium 8.3 L Magnesium Troponin I < 0.012 Lipase 93 TSH (Reflex) Free T4 Urine Color Urine Appearance Urine pH Ur Specific [place] Urine Protein Urine Glucose (UA) Urine Ketones Ur Blood (Man) Urine Nitrate Urine Bilirubin Urine Urobilinogen Leukocyte Esterase Rfl Urine RBC Urine WBC Ur Squamous Epith Cells Urine Mucus Blood Type Antibody Screen Crossmatch
[2021-04-01] MEDS: IRON SUCROSE COMPLEX 500 MG in SODIUM CHLORIDE 0.9% IV 250 ML 78.57 MG IVPB (16:26)
--- NOTE | 2021-04-01 23:16 | ECHO_ITS ---
Patient Info Name: Adina Jerome Age: 50 years : 1970 Gender: Female Ht: 65 in Wt: 165 lbs BSA: 1.87 m2 HR: 75 bpm BP: 110 / 72 mmHg Heart Rhythm: Sinus Rhythm Exam Date: 04/01/2021 9:48 AM Exam Location: [facility] Pulmonary Patient Status: Inpatient Admit Date: 03/31/2021 Staff Ordering Physician: Tonja Swenson PA-C Drywall Finisher Foreman: Tristin Yee RDCS, RT Attending Provider: Sheron Vázquez PA-C Referring Physician: Leela GARCIA; Exam Type: CA echo doppler color flow Study Info Indications R06.00 - Dyspnea, unspecified R00.0 - Tachycardia, unspecified Complete two-dimensional, color flow and Doppler transthoracic echocardiogram is performed. Strain analysis performed. Summary 1. Complete two-dimensional, color flow and Doppler transthoracic echocardiogram is performed. 2. Strain analysis performed. 3. Left ventricular chamber dimension is normal. 4. There is no increased left ventricular wall thickness. 5. The left ventricular diastolic function is normal. 6. Global longitudinal strain is abnormal at -14 %. 7. Left ventricular systolic function is normal, estimated at 65-70%. 8. Left atrial chamber dimension is mildly enlarged. 9. There is mild mitral valve regurgitation. 10. There is mild pulmonic regurgitation. Left Ventricle Left ventricular chamber dimension is normal. Left ventricular systolic function is normal, estimated at 65-70%. There is no increased left ventricular wall thickness. The left ventricular diastolic function is normal. Global longitudinal strain is abnormal at -14 %. Right Ventricle Right ventricular chamber dimension is normal. Right ventricular systolic function is normal. Left Atria Left atrial chamber dimension is mildly enlarged. Right Atria Right atrial chamber dimension is normal. Atrial Septum Intact interatrial septum visualized by color flow imaging. Aortic Valve The aortic valve is trileaflet. There is no aortic valve sclerosis. There is no aortic valve stenosis. There is trace aortic valve regurgitation. Pulmonic Valve The pulmonic valve is normal. There is no pulmonic valve stenosis. There is mild pulmonic regurgitation. Mitral Valve The mitral valve has normal leaflets. There is no mitral valve stenosis. There is mild mitral valve regurgitation. Tricuspid Valve The tricuspid valve leaflets are normal. There is no significant tricuspid valve stenosis. There is trace tricuspid valve regurgitation. Pericardium/Pleural The pericardium appears normal. There is no pericardial effusion. Inferior Vena Cava Normal inferior vena cava with >50% collapse upon inspiration consistent with normal right atrial pressure, 5 mmHg. Aorta The aortic root size at the sinus of Valsalva is normal. Left Ventricular Outflow Tract Name Value Normal LVOT 2D LVOT Diameter 2.0 cm LVOT Doppler LVOT Peak Gradient 4 mmHg LVOT Mean Gradient 2 mmHg LVOT VTI 19 cm LVOT VTI/AV VTI Ratio 0.8
[2021-04-01 23:23] LABS: Hematocrit 31.4 % (37.0-47.0); Hemoglobin 9.7 g/dL (12.0-15.0)
[2021-04-02] VITALS: PULSE 67
[2021-04-02 04:00] VITALS: PULSE 86
[2021-04-02 04:38] VITALS: BP 101/71; PULSE 75; RESP 18; TEMP 36.6; O2SAT 94
[2021-04-02 06:28] LABS: Hematocrit 31.5 % (37.0-47.0); Hemoglobin 9.6 g/dL (12.0-15.0); Mean Corpuscular HGB Conc 30.5 g/dl (32-36); Mean Corpuscular Hemoglobin 26.7 pg (26-34); Mean Corpuscular Volume 87.5 fl (80-100); Mean Platelet Volume 11.8 fl (7.4-10.4); Platelet Count Result 121 k/mm3 (150-375); Red Cell Distribution Width 16.2 % (11.5-14.5); White Blood Count 5.6 K/mm3 (4.5-10.0)
[2021-04-02 06:32] LABS: Anion Gap 11 mmol/L (8-16); Blood Urea Nitrogen 5 mg/dL (7-17); Calcium 8.7 mg/dL (8.4-10.2); Carbon Dioxide 19 mmol/L (22-30); Chloride 102 mmol/L (98-107); Estimated CRCL calculation 113 ml/min; Estimated Glomerular Filt Rate > 60; Glucose 89 mg/dL (65-110); Magnesium 1.7 mg/dL (1.6-2.3); Potassium 4.2 mmol/L (3.4-5.0); Sodium 132 mmol/L (137-145)
[2021-04-02 08:00] VITALS: PULSE 67
[2021-04-02] MEDS: LIPASE/AMYLASE/PROTEASE 12,000 UNITS CAP 2 CAP PO (08:38)
[2021-04-02] MEDS: busPIRone HCL 10 MG TABLET PO (08:39)
[2021-04-02] MEDS: CHOLECALCIFEROL 1,000 UNITS TABLET 5000 UNITS PO (08:39)
[2021-04-02] MEDS: SPIRONOLACTONE 50 MG TABLET PO (08:39)
[2021-04-02] MEDS: GABAPENTIN 300 MG CAPSULE PO (08:40)
[2021-04-02] MEDS: levETIRAcetam 250 MG TABLET 750 MG PO (08:40)
[2021-04-02] MEDS: FOLIC ACID 1 MG TABLET PO (08:40)
[2021-04-02] MEDS: MULTIVITAMINS THERAPEUTIC TAB (*BKC) 1 TABLET PO (08:40)
[2021-04-02] MEDS: HYDROcodone/acetaminophen (*CRX) 5-325 MG TABLET 1 TAB PO (08:43)
[2021-04-02] MEDS: LORazepam (*CRX) 0.5 MG TABLET PO (10:19)
--- NOTE | 2021-04-02 12:10 | PM.DS ---
DS: Admitting Diagnosis Discharge Date 04/02/21 Admitting Diagnosis Weakness DS: Discharge Diagnosis Discharge Diagnosis (1) Iron deficiency anemia: Code(s): D50.9 - Iron deficiency anemia, unspecified Status: Acute Assessment and Plan: The patient is a 50-year-old female with a history of iron deficiency anemia, chronic pancreatitis, hypertension, seizures, depression, anxiety, portal vein thrombosis, and colon polyps who presented to the emergency department from home for evaluation of weakness and shortness of breath. She is followed by Dr. Binu Pisano (hematology) for her anemia and she has required iron and blood transfusions in the past. It is my understanding that her anemia has been attributed to intermittent, occult GI blood loss due to AVMs and it is noted that she had a bone marrow biopsy done within the last year or so which was completely normal. In any event, the patient tells me that she has become less tolerant to lower hemoglobin and she is now symptomatic with a hemoglobin around 8 grams. She had blood work drawn last week and was going to have an outpatient transfusion however there was reportedly a shortage of O negative blood and she was set up for an iron transfusion but she was not feeling well and instead came to the ER for further evaluation. In the emergency department she was found to be tachycardic, worse upon standing and ambulating and she reports feeling very short of breath and fatigued with those activities. Her blood pressures however remained stable. Hemoglobin and hematocrit today were 7.8 and 27% respectively and she was also noted to have a low sodium and chloride of 128 and 90 respectively. Patient does admit that she has probably not been eating and drinking well and she was given 2 L of normal saline though she remained tachycardic and symptomatic when up ambulating thereafter and she is now being admitted for transfusion. She was also found to have an elevated D-dimer although a subsequent CTA of the chest was negative for PE. She was admitted into the hospital for a blood transfusion and further monitoring of her H&H. Patient is still not feeling well and is symptomatic with fatigue, shortness of breath and tachycardia with exertion after 1 unit of blood was transfused. Her hemoglobin this morning was 8.1, hematocrit 27%. I talked to the patient and we gave her another 1 unit of blood and 1 dose of IV Venofer 500 mg. She was not feeling well enough to go home last evening so she stayed overnight and her recheck hemoglobin this morning was 9.6, hematocrit 31%. She is otherwise feeling well at this time and is stable for discharge. Denies any lightheadedness, dizziness, palpitations, shortness of breath or any other concerning symptoms at this time. Patient has an appointment with her primary care doctor on 04/07/2021 and is going to be seeing her punch press feeder soon as well. She is stable at this time to be discharged home to follow-up with her providers and recheck her blood count in a few days. Return to ER warnings given. Patient understands agrees the plan all questions answered. (2) Symptomatic anemia: Code(s): D64.9 - Anemia, unspecified Status: Acute Assessment and Plan: See above. (3) Tachycardia: Code(s): R00.0 - Tachycardia, unspecified Status: Acute Assessment and Plan: Most likely due to hypovolemia from anemia and dehydration though after 2 L of normal saline she continued to become tachycardic, up to the 140s with ambulation. CTA negative for PE Telemetry showed normal sinus rhythm with a heart rate in the 78s, few episodes of sinus tachycardia 120-149 with exertion. Patient does not feel the palpitations anymore after her transfusions. Patient states she does not walk her 3 miles a day like she used to and has gained some weight and has not
== END 2021-04-02 11:00 | disposition home or self-care (01) ==
LOC: ANHED 20:42 → ANH3MED 22:06
PROVIDERS: Physician Assistant; Admitting Provider Internal Medicine; Emergency Provider Emergency Medicine; Visit Provider Internal Medicine
DX: D50.9 Iron deficiency anemia, unspecified (principal); R00.0 Tachycardia, unspecified; E86.0 Dehydration; R53.1 Weakness; E87.1 Hypo-osmolality and hyponatremia; R06.02 Shortness of breath; I10 Essential (primary) hypertension; D47.2 Monoclonal gammopathy; K86.1 Other chronic pancreatitis; F41.8 Other specified anxiety disorders; G40.909 Epilepsy, unspecified, not intractable, without status epilepticus
CPT/HCPCS: 36415; 36430; 71045; 71275; 80048; 80053; 81001; 83690; 83735; 84439; 84443; 84484; 85014; 85018; 85025; 85027; 85055; 85380; 85610; 85730; 86850; 86900; 86901; 86920; 93005; 93306; 96361; 96374; 96376; 99285; A9270; G0378; J1756; J2270; J7030; J7050; P9016; Q9967

== ENCOUNTER 2021-05-20 22:52 | Inpatient (IN) | payer BC, SELFPAY ==
[2021-05-20 22:48] VITALS: BP 89/45; PULSE 138; RESP 17; TEMP 36.4; O2SAT 99
--- NOTE | 2021-05-20 22:52 | ECG_ITS ---
Measurements Intervals [place] Rate: 129 P: 15 MO: 106 QRS: 23 QRSD: 87 T: 25 QT: 321 QTc: 471 Interpretive Statements SINUS TACHYCARDIA WITH SHORT MO INTERVAL DELAYED PRECORDIAL R/S TRANSITION BORDERLINE ST-T WAVE ABNORMALITY- INF/HIGH LAT LEADS BASELINE ARTIFACT- I, II, III, AVR, AVL, V1-V6 ABNORMAL ECG Electronically Signed On 05-21-2021 6:38:11 [employer] by Tyler Lord D.O.
[2021-05-20 23:05] VITALS: BP 91/75; PULSE 124; RESP 20; O2SAT 99
[2021-05-20 23:40] VITALS: BP 92/70; PULSE 119
[2021-05-20 23:44] VITALS: BP 95/72; PULSE 146
[2021-05-20 23:47] LABS: Alanine Aminotransferase 26 U/L (4-35); Albumin Level 3.3 g/dL (3.5-5.1); Alkaline Phosphatase 52 U/L (38-126); Anion Gap 11 mmol/L (8-16); Aspartate Amino Transferase 32 U/L (14-36); Bilirubin,Total 0.7 mg/dL (0.2-1.3); Blood Urea Nitrogen 30 mg/dL (7-17); Calcium 8.4 mg/dL (8.4-10.2); Carbon Dioxide 24 mmol/L (22-30); Chloride 96 mmol/L (98-107); Estimated CRCL calculation 87 ml/min; Estimated Glomerular Filt Rate > 60; Glucose 148 mg/dL (65-110); Sodium 131 mmol/L (137-145)
[2021-05-20 23:51] LABS: Basophils Percent Auto 0.5 % (0.2-1.2); Eosinophils Absolute Auto 0.1 K/mm3 (0-0.3); Eosinophils Percent Auto 1.1 % (0-4.4); Hematocrit 24.2 % (37.0-47.0); Hemoglobin 7.3 g/dL (12.0-15.0); Immature Granulocyte Absolute 0.04 K/mm3 (0.00-0.031); Immature Granulocyte Percent A 0.6 % (0-0.5); Lymphocytes Absolute Auto 1.18 K/mm3 (0.9-3.2); Mean Corpuscular HGB Conc 30.2 g/dl (32-36); Mean Corpuscular Hemoglobin 27.7 pg (26-34); Mean Corpuscular Volume 91.7 fl (80-100); Mean Platelet Volume 11.9 fl (7.4-10.4); Monocytes Absolute Auto 0.7 K/mm3 (0.1-0.6); Monocytes Percent Auto 11.9 % (2.6-8.5); Neutrophils Absolute Auto 4.2 K/mm3 (1.3-6.7); Neutrophils Percent Auto 66.9 % (45.5-73.1); Platelet Count Result 120 k/mm3 (150-375); Red Blood Count 2.64 M/mm3 (4.2-5.4); Red Cell Distribution Width 18.4 % (11.5-14.5); White Blood Count 6.2 K/mm3 (4.5-10.0)
[2021-05-20 23:55] LABS: INR 1.2; Partial Thromboplastin Time 25.8 SECONDS (22.3-36.8)
[2021-05-21] VITALS (22 sets, daily range): BP systolic 105–125; BP diastolic 67–93; PULSE 74–152; RESP 16–22; TEMP 36.2–37.3; O2SAT 95–100; BMI 25.9
[2021-05-21] MEDS: SODIUM CHLORIDE 0.9% IV 1,000 ML 999 ML IV CONT (00:35)
--- NOTE | 2021-05-21 00:37 | ED.WEAKNESS ---
HPI - Weakness General Chief complaint: Weakness Stated complaint: DIZZY, SOB, HYPOTENSIVE, TACHYCARDIA Time Seen by Provider: 05/20/21 23:04 History of Present Illness HPI Narrative: Patient is a 50-year-old female who presents ER with dizziness and palpitations. Patient reports she went up to go to the bathroom she started getting lightheaded and tingling in her fingers. She thought she might pass out or have a seizure. Patient has history of chronic anemia requiring recurrent transfusions. She sees Dr. Pisano. Last transfusion was couple months ago. She has had no blood in her stool. She is on no blood thinners. EMS arrived and patient was tachycardic in the 150s with pressure in the 70s. She received some LR increasing her blood pressure. Patient is feeling improved at this time. Related Data Home Medications Medication Instructions Recorded Confirmed gabapentin 300 mg capsule 300 mg PO TID cap 08/26/20 03/31/21 Creon 1 cap PO TID 12/04/20 03/31/21 buspirone 10 mg PO BID 12/04/20 03/31/21 desvenlafaxine 50 mg PO DAILY 12/04/20 03/31/21 lorazepam 0.5 mg PO TID PRN 12/04/20 03/31/21 ondansetron 4 mg PO Q6H PRN 12/04/20 03/31/21 cholecalciferol (vitamin D3) 125 mcg PO DAILY 12/05/20 03/31/21 folic acid 1 mg PO DAILY 12/05/20 03/31/21 multivitamin [Daily Multi-Vitamin] 1 tablet PO DAILY 12/05/20 03/31/21 melatonin 3 mg PO HS 01/26/21 03/31/21 quetiapine 50 mg PO HS 01/26/21 03/31/21 spironolactone 50 mg PO DAILY 01/26/21 03/31/21 Allergies Allergy/AdvReac Type Severity Reaction Status Date / Time No Known Allergies Allergy Verified 01/27/21 00:50 Review of Systems Review of Systems: All systems reviewed & are unremarkable except as noted in HPI and below Constitutional: Constitutional: Denies chills, Denies fatigue, Denies fever(s) and Reports weakness ENT: Denies nasal congestion and Denies sore throat Cardiovascular: Cardiovascular: Denies chest pain, Reports rapid heart rate and Denies radiating jaw, neck or arm pain Respiratory: Respiratory: Denies cough, Denies dyspnea and Denies wheezing Gastrointestinal: Gastrointestinal: Denies abdominal pain, Denies diarrhea, Denies nausea and Denies vomiting Comments: No blood in stool Musculoskeletal: Musculoskeletal: Denies back pain and Denies muscle cramps Neurologic: Reports dizziness and Denies focal weakness Comments: Hand tingling PMFSH Past Medical History Medical History (Updated 05/21/21 @ 04:16 by Satnam Sandoval MD) Adenomatous colon polyp Anxiety Biliary stricture Chronic pancreatitis With history of pseudocyst. Depression Esophageal varices Essential (primary) hypertension Gastroesophageal reflux disease History of alcohol abuse Sober since 2018. Iron deficiency anemia Monoclonal gammopathy of unknown significance Poorly documented. Occult GI bleeding Attributed to AVMs. Portal vein thrombosis Seizure disorder Surgical History Surgical History (Updated 03/31/21 @ 22:08 by Tonja Swenson PA-C) History of colonoscopy with polypectomy History of lumpectomy of right breast Presence of pancreatic duct stent Family History Family History Father Hypertension Cerebrovascular accident Congestive heart failure Mother Hypertension Rheumatoid arthritis Sibling Hypertension Anxiety Social History Social History (Updated 03/31/21 @ 23:09 by Tonja Swenson PA-C) Social History: Surrogate decision maker: Patricia Jerome, . Code status: Full code. Smoking status: Never smoker Second hand tobacco smoke exposure: No Alcohol intake: former Drinks per week: 5 Alcohol use details: Sober since 12/2017. Substance use: never Substance use type: does not use Additional living arrangements comments: The patient lives with her mother in [place]. 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
[2021-05-21 01:26] LABS: SARS-CoV-2 RNA PCR Negative
--- NOTE | 2021-05-21 01:39 | PC.NURSE ---
0015 LR 1L infused
[2021-05-21] MEDS: ONDANSETRON INJ 4 MG/2 ML VIAL IV PUSH ×3 (01:43→12:37)
[2021-05-21 02:19] LABS: Add Urine Microscopic? YES; Appearance Urine Clear (Clear); Bacteria Urine Trace /hpf; Bilirubin Urine Negative (Negative); Blood Urine Negative (Negative); Color Urine Yellow (Yellow); Glucose Urine UA Negative (Negative); Ketones Urine Negative (Negative); Leukocyte Esterase Ur Trace LEU/UL (Negative); Mucus Urine Rare /lpf; Nitrate Urine Negative (Negative); Protein Urine Negative (Negative); RBC Urine 0-2 /hpf (0-2); Specific Grav Ur 1.017 (1.001-1.035); Squamous Epithelial Cell Urine Occasional /hpf (Few); Urobilinogen Urine Negative mg/dL (<2.0); WBC Urine 0-3 /hpf
--- NOTE | 2021-05-21 02:28 | PC.NURSE ---
small amount of vomiting continues to c/o nausea
[2021-05-21] MEDS: SODIUM CHLORIDE 0.9% IV 250 ML 30 ML IV CONT (03:10)
[2021-05-21] MEDS: PROMETHAZINE HCL 25 MG/ML AMPUL 12.5 MG IV PUSH (03:10)
[2021-05-21 03:37] LABS: Folic Acid 9.4 ng/mL (2.76->20)
[2021-05-21 03:54] LABS: Iron 93 ug/dL (37-170)
[2021-05-21 04:03] LABS: Percent Iron Saturation 33 % (20-50)
--- NOTE | 2021-05-21 04:36 | ADMGEN ---
This patient, dAina Jerome, was admitted to 3 [facility] Surg Room 309-01. Patient/family oriented to hospital policies and general routines including ID bracelet, bed and alarms, visiting hours, pain management, procedures, bathroom and other care routines, personal items, smoking policy, room service/diet, and visiting hours. Information on how to activate the Rapid Response Team has been discussed. Patient/Family are encouraged to report perceived risks to care and to ask questions if they do not understand what they are told or what they should do.
[2021-05-21 06:29] LABS: Immature Reticulocyte Fraction 30.5 % (3.0-15.9); Reticulocyte Hemoglobin Conten 30.2 pg (28.2-35.7); Reticulocyte Percent 2.07 % (0.7-4.3); Reticulocytes Absolute 0.05 B/L (32.2-175.7)
[2021-05-21 09:25] LABS: Hematocrit 27.4 % (37.0-47.0); Hemoglobin 8.5 g/dL (12.0-15.0); Immature Platelet Fraction Pct 12.5 % (0.9-11.2); Mean Corpuscular Hemoglobin 28.1 pg (26-34); Mean Corpuscular Volume 90.7 fl (80-100); Mean Platelet Volume 11.7 fl (7.4-10.4); Platelet Count Result 127 k/mm3 (150-375); Red Blood Count 3.02 M/mm3 (4.2-5.4); Red Cell Distribution Width 17.3 % (11.5-14.5); White Blood Count 6.4 K/mm3 (4.5-10.0)
--- NOTE | 2021-05-21 09:29 | PM.IMHP ---
H&P: HPI History of Present Illness Date/Time: 05/21/21 09:29 Chief Complaint: Weak and dizzy with palpitations Narrative: 50-year-old female has a history of chronic anemia. She is followed by Hematology, Dr. Fox. She has a history of low iron with anemia. Possible AVM. Gets IV iron every 3-4 months now. Cannot tolerate oral iron. She is about due for an IV iron infusion. Last transfusion was about 2 months ago. She has had a bone marrow biopsy. She has a history of monoclonal gammopathy INR uncertain significance. She has had upper and lower endoscopies. None of these have revealed a definitive diagnosis for her anemia. Last night at home alone she felt weak and dizzy. She was lightheaded with rising. She had dyspnea on exertion walking across a room in a house. She was severely dyspneic with taking the trash can out to the end of the driveway. She has palpitations with had a exertion. She has no associated chest pain. No syncope. No swelling. No orthopnea or PND. After receiving a L of lactated Ringer's and 1 unit packed red cells last night she is feeling much better. Still has palpitations with walking to the bathroom. Much less short of breath and lightheaded. Noted no active bleeding recently. Has had dark stools before. Still has nausea vomiting every 3 or 4 weeks if she eats too much of the wrong foods. She does have a history of alcoholism but currently has only 1-2 drinks of vodka and mixed drink per week. She has been sober since 2018. Review of Systems Review of Systems: All systems reviewed & are unremarkable except as noted in HPI and below [facility] Past Medical History Medical History Adenomatous colon polyp Anxiety Biliary stricture Chronic pancreatitis With history of pseudocyst. Depression Esophageal varices Essential (primary) hypertension Gastroesophageal reflux disease History of alcohol abuse Sober since 2018. Iron deficiency anemia Monoclonal gammopathy of unknown significance Poorly documented. Occult GI bleeding Attributed to AVMs. Portal vein thrombosis Seizure disorder Surgical History Surgical History History of colonoscopy with polypectomy History of lumpectomy of right breast Presence of pancreatic duct stent Family History Family History Father Hypertension Cerebrovascular accident Congestive heart failure Mother Hypertension Rheumatoid arthritis Sibling Hypertension Anxiety Social History Social History (Updated 05/21/21 @ 10:11 by Eduard Hart MD) Social History: Surrogate decision maker: Patricia Jerome, mother. Code status: Full code. Smoking status: Never smoker Second hand tobacco smoke exposure: No Alcohol intake: current Drinks per week: 2 Alcohol use details: Sober since 12/2017. Substance use: unknown Substance use type: does not use Additional living arrangements comments: The patient lives with her mother in [place]. 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 capsule 300 mg PO TID cap 08/26/20 05/21/21 History Creon 1 cap PO TID 12/04/20 05/21/21 History buspirone 10 mg PO BID 12/04/20 05/21/21 History desvenlafaxine 50 mg PO DAILY 12/04/20 05/21/21 History lorazepam 0.5 mg PO TID PRN 12/04/20 05/21/21 History ondansetron 4 mg PO Q6H PRN 12/04/20 05/21/21 History cholecalciferol (vitamin D3) 125 mcg PO DAILY 12/05/20 05/21/21 History folic acid 1 mg PO DAILY 12/05/20 05/21/21 History multivitamin [Daily Multi-Vitamin] 1 tablet PO DAILY 12/05/20 05/21/21 History melatonin 3 mg PO HS 01/26/21 05/21/21 History quetiapine 50 mg PO HS 01/26/21 05/21/21
[2021-05-21 09:37] LABS: Anion Gap 10 mmol/L (8-16); Blood Urea Nitrogen 28 mg/dL (7-17); Calcium 8.4 mg/dL (8.4-10.2); Carbon Dioxide 25 mmol/L (22-30); Chloride 102 mmol/L (98-107); Estimated CRCL calculation 102 ml/min; Estimated Glomerular Filt Rate > 60; Glucose 103 mg/dL (65-110); Magnesium 1.3 mg/dL (1.6-2.3); Potassium 3.4 mmol/L (3.4-5.0); Sodium 137 mmol/L (137-145)
[2021-05-21 09:43] LABS: Hemoglobin A1C 4.9 % (<5.7)
[2021-05-21] MEDS: POTASSIUM CHLORIDE 20 MEQ TABLET 40 MEQ PO (10:39)
[2021-05-21] MEDS: DESVENLAFAXINE SUCCINATE 50 MG TAB.ER.24H PO (10:40)
[2021-05-21] MEDS: CHOLECALCIFEROL 1,000 UNITS TABLET 5000 UNITS PO (10:40)
[2021-05-21] MEDS: levETIRAcetam 250 MG TABLET 750 MG PO (10:40)
[2021-05-21] MEDS: FOLIC ACID 1 MG TABLET PO (10:40)
[2021-05-21] MEDS: LIPASE/AMYLASE/PROTEASE 12,000 UNITS CAP 2 CAP PO ×2 (10:41→12:29)
[2021-05-21] MEDS: busPIRone HCL 10 MG TABLET PO (10:41)
[2021-05-21] MEDS: GABAPENTIN 300 MG CAPSULE PO ×2 (10:41→16:19)
[2021-05-21] MEDS: SPIRONOLACTONE 50 MG TABLET PO (10:41)
[2021-05-21] MEDS: MULTIVITAMINS THERAPEUTIC TAB (*BKC) 1 TABLET PO (10:42)
[2021-05-21] MEDS: LORazepam (*CRX) 0.5 MG TABLET PO (10:50)
[2021-05-21] MEDS: MAGNESIUM SULF 2 GM/WATER 50ML 2 GM/50 ML BAG IVPB (12:29)
[2021-05-21 15:45] LABS: Hematocrit 20.2 % (37.0-47.0); Hemoglobin 6.3 g/dL (12.0-15.0)
[2021-05-21] MEDS: TUBING, BLOOD PLUM PUMP TUBING 1 EACH XX (16:18)
[2021-05-21] MEDS: SODIUM CHLORIDE 0.9% IV 500 ML 30 ML (16:18)
--- NOTE | 2021-05-21 16:31 | PC.NURSE ---
PRBC started at 1614.
[2021-05-21] MEDS: PROCHLORPERAZINE EDISYLATE 10 MG/2 ML VIAL IV PUSH ×2 (17:10→21:45)
[2021-05-21] MEDS: KCL 20 MEQ/D5/0.9% SOD CHL 1,000 ML 75 ML IV CONT (20:04)
[2021-05-21] MEDS: PANTOPRAZOLE SODIUM IV 40 MG VIAL IV PUSH (20:04)
[2021-05-21 21:11] LABS: Hematocrit 23.7 % (37.0-47.0); Hemoglobin 7.5 g/dL (12.0-15.0)
[2021-05-21] MEDS: levETIRAcetam IV 750 MG in DEXTROSE 5% 100 ML 430 MG IVPB (21:21)
[2021-05-22] VITALS (16 sets, daily range): BP systolic 94–118; BP diastolic 56–80; PULSE 85–136; RESP 16–18; TEMP 36.4–37.1; O2SAT 100
[2021-05-22] MEDS: PANTOPRAZOLE SODIUM IV 40 MG VIAL IV PUSH (05:34)
[2021-05-22 05:56] LABS: Mean Corpuscular HGB Conc 31.4 g/dl (32-36); Mean Corpuscular Hemoglobin 27.4 pg (26-34); Mean Platelet Volume 12.2 fl (7.4-10.4); Platelet Count Result 81 k/mm3 (150-375); Red Blood Count 2.23 M/mm3 (4.2-5.4); Red Cell Distribution Width 17.7 % (11.5-14.5); White Blood Count 4.1 K/mm3 (4.5-10.0)
[2021-05-22 06:04] LABS: Hematocrit 19.4 % (37.0-47.0); Hemoglobin 6.1 g/dL (12.0-15.0)
--- NOTE | 2021-05-22 06:15 | PC.NURSE ---
Recieved call from lab stating patient Hgb is 6.1 and hct is 19.4. I called Dr. Jesus to report lab results and she gave verbal order to order an additional 2 units of blood.
[2021-05-22 06:19] LABS: Anion Gap 6 mmol/L (8-16); Blood Urea Nitrogen 21 mg/dL (7-17); Calcium 7.6 mg/dL (8.4-10.2); Carbon Dioxide 21 mmol/L (22-30); Chloride 112 mmol/L (98-107); Estimated CRCL calculation 102 ml/min; Estimated Glomerular Filt Rate > 60; Glucose 111 mg/dL (65-110); Magnesium 1.6 mg/dL (1.6-2.3); Potassium 3.8 mmol/L (3.4-5.0); Sodium 139 mmol/L (137-145)
--- NOTE | 2021-05-22 09:00 | P.PNIM_ITS ---
Progress Note: A&P Assessment and Plan (1) Symptomatic anemia: Code(s): D64.9 - Anemia, unspecified Status: Acute Assessment and Plan: * Clinically worsening of her chronic anemia without evidence for new nutrit ional deficiency, acute blood loss, or hemolysis * Feels much better after 1 unit of packed red cells and 1 L of IV fluid * 05/21 ordered 300 mg iron sucrose IV x1 * 05/21 2nd unit of PRBC * 05/22 hbg 6.1, ordered 3rd and 4th units of PRBC * Continue folic acid * Follow-up H&H * Likely home 05/23 if H/H stable and no further hematemesis or melena * Wants to f/u with GI in [place] and defer EGD here, except in case of emergency, but willing to talk to GI here (2) Essential (primary) hypertension: Code(s): I10 - Essential (primary) hypertension Status: Chronic Assessment and Plan: * 05/22 blood pressures reviewed and adequate (3) Chronic pancreatitis: Qualifiers: Pancreatitis type: alcohol induced Qualified Code(s): K86.0 - Alcohol- induced chronic pancreatitis Code(s): K86.1 - Other chronic pancreatitis Status: Chronic Assessment and Plan: * Without symptoms or signs of acute flare (4) Seizure disorder: Code(s): G40.909 - Epilepsy, unspecified, not intractable, without status epilepticus Status: Acute Assessment and Plan: * Controlled * Continue IV levetiracetam while NPO * Hold tramadol due to possible interaction with antidepressants to lower seizure threshold (5) Thrombocytopenia: Code(s): D69.6 - Thrombocytopenia, unspecified Status: Acute Assessment and Plan: * Possibly due to chronic alcohol use * Given that she follows up with Hematology and takes folic acid supplements she is undoubtedly been screened for B12 deficiency and ITP (6) Depression: Qualifiers: Depression Type: unspecified Qualified Code(s): F32.A - Depression, unspecified Code(s): F32.9 - Major depressive disorder, single episode, unspecified Status: Acute Assessment and Plan: * PRN IV lorazepam while NPO * Resume home meds if h/h stable and no further bleeding Subjective Date/time seen: 05/22/21 09:00 Interval history: 05/22 visit: No further episodes of coffee-ground emesis or dark stools since 05/21 afternoon. Slept well last night. Denied abdominal pain or nausea. Hungry and thirsty No chest pain, shortness of breath, swelling, dysuria, hematuria, itching. No focal weakness. Wants to go home tonight. Review of Systems Review of Systems: All systems reviewed & are unremarkable except as noted in HPI and below Exam Narrative: SKIN: [place] creases, no rash HEENT: PERRL, sclerae nonicteric, pharyngeal mucosa pink and intact NECK: No JVD, adenopathy, or thyromegaly CHEST: Clear to auscultation. Normal effort. HEART: NL S1/S2, regular, no murmur ABDOMEN: BS+, soft, nontender, no mass, no bruits EXTREMITIES: No cyanosis, edema, or clubbing NEUROLOGIC: CN intact and symmetric to inspection. MUSCULOSKELETAL: Tone and strength symmetric. PSYCH: Alert. Oriented to person, place, and time. Objective Data Vital Signs Vital Signs: Vital Signs - 24 hr 05/21/21 14:00 05/21/21 16:10 05/21/21 16:29 Temperature 98.2 F 97.4 F L 98.5 F Pulse Rate 74 77 113 H Respiratory Rate 20 20 16 Blood Pressure 116/74 113/67 110/77 Pulse Oximetry 95 100 100
--- NOTE | 2021-05-22 09:00 | PM.IMPN ---
Progress Note: A&P Assessment and Plan (1) Symptomatic anemia: Code(s): D64.9 - Anemia, unspecified Status: Acute Assessment and Plan: Clinically worsening of her chronic anemia without evidence for new nutritional deficiency, acute blood loss, or hemolysis Feels much better after 1 unit of packed red cells and 1 L of IV fluid 05/21 ordered 300 mg iron sucrose IV x1 05/21 2nd unit of PRBC 05/22 hbg 6.1, ordered 3rd and 4th units of PRBC Continue folic acid Follow-up H&H Likely home 05/23 if H/H stable and no further hematemesis or melena Wants to f/u with GI in [place] and defer EGD here, except in case of emergency, but willing to talk to GI here (2) Essential (primary) hypertension: Code(s): I10 - Essential (primary) hypertension Status: Chronic Assessment and Plan: 05/22 blood pressures reviewed and adequate (3) Chronic pancreatitis: Qualifiers: Pancreatitis type: alcohol induced Qualified Code(s): K86.0 - Alcohol-induced chronic pancreatitis Code(s): K86.1 - Other chronic pancreatitis Status: Chronic Assessment and Plan: Without symptoms or signs of acute flare (4) Seizure disorder: Code(s): G40.909 - Epilepsy, unspecified, not intractable, without status epilepticus Status: Acute Assessment and Plan: Controlled Continue IV levetiracetam while NPO Hold tramadol due to possible interaction with antidepressants to lower seizure threshold (5) Thrombocytopenia: Code(s): D69.6 - Thrombocytopenia, unspecified Status: Acute Assessment and Plan: Possibly due to chronic alcohol use Given that she follows up with Hematology and takes folic acid supplements she is undoubtedly been screened for B12 deficiency and ITP (6) Depression: Qualifiers: Depression Type: unspecified Qualified Code(s): F32.A - Depression, unspecified Code(s): F32.9 - Major depressive disorder, single episode, unspecified Status: Acute Assessment and Plan: PRN IV lorazepam while NPO Resume home meds if h/h stable and no further bleeding Subjective Date/time seen: 05/22/21 09:00 Interval history: 05/22 visit: No further episodes of coffee-ground emesis or dark stools since 05/21 afternoon. Slept well last night. Denied abdominal pain or nausea. Hungry and thirsty No chest pain, shortness of breath, swelling, dysuria, hematuria, itching. No focal weakness. Wants to go home tonight. Review of Systems Review of Systems: All systems reviewed & are unremarkable except as noted in HPI and below Exam Narrative: SKIN: [place] bentley creases, no rash HEENT: PERRL, sclerae nonicteric, pharyngeal mucosa pink and intact NECK: No JVD, adenopathy, or thyromegaly CHEST: Clear to auscultation. Normal effort. HEART: NL S1/S2, regular, no murmur ABDOMEN: BS+, soft, nontender, no mass, no bruits EXTREMITIES: No cyanosis, edema, or clubbing NEUROLOGIC: CN intact and symmetric to inspection. MUSCULOSKELETAL: Tone and strength symmetric. PSYCH: Alert. Oriented to person, place, and time. Objective Data Vital Signs Vital Signs: Vital Signs - 24 hr 05/21/21 14:00 05/21/21 16:10 05/21/21 16:29 Temperature 98.2 F 97.4 F L 98.5 F Pulse Rate 74 77 113 H Respiratory Rate 20 20 16 Blood Pressure 116/74 113/67 110/77 Pulse Oximetry 95 100 100 05/21/21 16:56 05/21/21 17:29 05/21/21 18:29 Temperature 97.7 F 98 F 97.1 F L Pulse Rate 123 H 109 H 112 H Respiratory Rate 16 16 16 Blood Pressure 123/84 107/75 112/77 Pulse Oximetry 100 99 100 05/21/21 19:30 05/21/21 21:00 05/22/21 06:00 Temperature 97.6 F 98.6 F 97.6 F Pulse Rate 122 H 106 H 136 H Respiratory Rate 18 18 18 Blood Pressure 113/78 110/77 102/65 Pulse Oximetry 98 98 100 05/22/21 07:45 05/22/21 08:15 Temperature 98.6 F 98.6 F Pulse Rate 106 H 105 H Respiratory Rate 16 16 Blood Pressure 94/62 L 101/71 Pulse Oximetry 100 100
[2021-05-22] MEDS: PROCHLORPERAZINE EDISYLATE 10 MG/2 ML VIAL IV PUSH (09:42)
[2021-05-22] MEDS: levETIRAcetam IV 750 MG in DEXTROSE 5% 100 ML 430 MG IVPB (10:54)
[2021-05-22] MEDS: LORazepam INJ (*CRX) 2 MG/ML VIAL 0.5 MG IV PUSH (10:55)
--- NOTE | 2021-05-22 11:30 | WPDGICN ---
Assessment and Plan Assessment and plan (1) Acute on chronic blood loss anemia: Code(s): D62 - Acute posthemorrhagic anemia Status: Acute Assessment and Plan: extensive GI work up, she has a GI doctor at [facility] (had ercp after complication from chronic pancreatitis, multiple egd with capsule and colonoscopy) this time also had coffee ground emesis and she had symptomatic anemia requiring again blood transfusion, she is agreeable to have EGD with push enteroscopy tomorrow, will check if can find sign of bleeding. Then she would like to follow up with her regular GI doctor, Niya, at [facility]. iv protonix and npo after midnight (2) Chronic pancreatitis: Qualifiers: Pancreatitis type: alcohol induced Qualified Code(s): K86.0 - Alcohol-induced chronic pancreatitis Code(s): K86.1 - Other chronic pancreatitis Status: Chronic Assessment and Plan: had complications in the past, not longer drinking (3) Coffee ground emesis: Code(s): K92.0 - Hematemesis Status: Acute (4) Seizure disorder: Code(s): G40.909 - Epilepsy, unspecified, not intractable, without status epilepticus Status: Acute Assessment and Plan: on meds (5) MGUS (monoclonal gammopathy of unknown significance): Code(s): D47.2 - Monoclonal gammopathy Status: Acute Assessment and Plan: also seeing hematology GI Consult Note Consult date/time: 05/22/21 11:30 Reason for consult: coffee ground emesis HPI: Adina Jerome is a 50 year old female with history of chronic Pancreatitis with hx of pancreatic pseudocyst r/t alcohol abuse (no longer drinking 04/2020) treated by her regular GI, Dr Núñez at [facility] (had multiple ERCP, also had pancreatic-colonic fistula treated with stents), anxiety, seizures, depression, had bone marrow biopsy that showed MGUS with recurrent SHERLEY followed by hematology (she is getting IV iron- can not tolerate oral- and blood transfusion as needed, last time about 2 months ago). She had multiple EGD's with enteroscopy (last time tattooed more distal site reached with scope in the jejunum), colonoscopy, had 2 small bowel capsule- no obvious signs of bleeding despite extensive GI work up. She came this time because feeling weak and dizzy. She was lightheaded and also had dyspnea on exertion walking across. Hb 8-9 but on arrival 6. When she came to the hospital also had coffee ground emesis and dark stools (she says that intermittently will have dark stools). She normally uses prevacid bid. Now is getting blood transfusion. Review of Systems Constitutional: Constitutional: Reports fatigue Eyes: Eyes: Denies blurry vision ENT: Reports Normal hearing present Cardiovascular: Cardiovascular: Reports lightheadedness Respiratory: Respiratory: Reports dyspnea on exertion Gastrointestinal: Gastrointestinal: Denies abdominal pain and Reports vomiting Genitourinary: Genitourinary: Denies hematuria Musculoskeletal: Musculoskeletal: Denies neck pain Integumentary/Breasts: Skin/Breast: Denies dry skin Neurologic: Denies numbness Psychiatric: Psychiatric: Denies anxiety [facility] Past Medical History Medical History (Updated 05/22/21 @ 11:40 by Nick Yepez MD) Acute on chronic blood loss anemia Adenomatous colon polyp Anxiety Biliary stricture Chronic pancreatitis With history of pseudocyst. Coffee ground emesis Depression Esophageal varices Essential (primary) hypertension Gastroesophageal reflux disease History of alcohol abuse Sober since 2018. Iron deficiency anemia Monoclonal gammopathy of unknown significance Poorly documented. Occult GI bleeding Attributed to AVMs. Portal vein thrombosis Seizure disorder Surgical History Surgical History History of colonoscopy with polypectomy History of lumpectomy of right breast Presence of pancreatic duct stent Family History
[2021-05-22] MEDS: KCL 20 MEQ/D5/0.9% SOD CHL 1,000 ML 75 ML IV CONT (14:35)
[2021-05-22 16:05] LABS: Hematocrit 28.9 % (37.0-47.0); Hemoglobin 9.4 g/dL (12.0-15.0)
[2021-05-22 20:36] LABS: Hematocrit 30.6 % (37.0-47.0); Hemoglobin 9.5 g/dL (12.0-15.0)
[2021-05-22] MEDS: GABAPENTIN 300 MG CAPSULE PO (21:46)
[2021-05-22] MEDS: PANTOPRAZOLE 40 MG TABLET PO (21:46)
[2021-05-22] MEDS: QUEtiapine FUMARATE 25 MG TABLET 50 MG PO (21:46)
[2021-05-22] MEDS: LORazepam (*CRX) 0.5 MG TABLET PO ×2 (21:46→23:35)
[2021-05-22] MEDS: levETIRAcetam 250 MG TABLET 750 MG PO (21:46)
[2021-05-22] MEDS: busPIRone HCL 10 MG TABLET PO (21:47)
[2021-05-22] MEDS: MELATONIN 3 MG TABLET PO (21:47)
[2021-05-23] VITALS (7 sets, daily range): BP systolic 84–118; BP diastolic 50–83; PULSE 83–105; RESP 18–23; TEMP 35.9–37.2; O2SAT 96–100
[2021-05-23 00:25] LABS: Hematocrit 25.3 % (37.0-47.0); Hemoglobin 8.3 g/dL (12.0-15.0)
[2021-05-23 07:06] LABS: Anion Gap 5 mmol/L (8-16); Blood Urea Nitrogen 6 mg/dL (7-17); Calcium 7.6 mg/dL (8.4-10.2); Carbon Dioxide 20 mmol/L (22-30); Chloride 110 mmol/L (98-107); Estimated CRCL calculation 102 ml/min; Estimated Glomerular Filt Rate > 60; Glucose 98 mg/dL (65-110); Potassium 3.6 mmol/L (3.4-5.0); Sodium 135 mmol/L (137-145)
[2021-05-23 07:19] LABS: Hematocrit 25.6 % (37.0-47.0); Hemoglobin 8.3 g/dL (12.0-15.0); Immature Platelet Fraction Pct 12.6 % (0.9-11.2); Mean Corpuscular HGB Conc 32.4 g/dl (32-36); Mean Corpuscular Hemoglobin 29.3 pg (26-34); Mean Corpuscular Volume 90.5 fl (80-100); Mean Platelet Volume 12.9 fl (7.4-10.4); Platelet Count Result 65 k/mm3 (150-375); Red Blood Count 2.83 M/mm3 (4.2-5.4); Red Cell Distribution Width 16.6 % (11.5-14.5); White Blood Count 2.7 K/mm3 (4.5-10.0)
[2021-05-23 09:39] LABS: Eosinophils Absolute Auto 0.1 K/mm3 (0-0.3); Eosinophils Percent Auto 2.8 % (0-4.4); Hematocrit 29.5 % (37.0-47.0); Hemoglobin 9.4 g/dL (12.0-15.0); Immature Granulocyte Absolute 0.01 K/mm3 (0.00-0.031); Immature Granulocyte Percent A 0.3 % (0-0.5); Lymphocytes Absolute Auto 0.61 K/mm3 (0.9-3.2); Lymphocytes Percent Auto 15.5 % (18.3-44.2); Mean Corpuscular HGB Conc 31.9 g/dl (32-36); Mean Corpuscular Hemoglobin 29.2 pg (26-34); Mean Corpuscular Volume 91.6 fl (80-100); Monocytes Absolute Auto 0.4 K/mm3 (0.1-0.6); Monocytes Percent Auto 10.4 % (2.6-8.5); Neutrophils Absolute Auto 2.8 K/mm3 (1.3-6.7); Platelet Count Result 80 k/mm3 (150-375); Red Blood Count 3.22 M/mm3 (4.2-5.4); Red Cell Distribution Width 16.7 % (11.5-14.5); White Blood Count 3.9 K/mm3 (4.5-10.0)
[2021-05-23] MEDS: LACTATED RINGERS 1,000 ML 150 ML IV CONT (10:29)
--- NOTE | 2021-05-23 10:45 | WPDANESEPPF ---
Anes - Initial Pre Proc Eval Procedure: Operation Date: 05/23/21 13:15 Proposed Procedures p Esophagogastroduodenoscopy - Nick Yepez MD Date/Time: 05/23/21 10:46 Surgeon: Lidia Almanza PA-C Pre Op Diagnosis: anemia Patient Data Age: 50 Gender: F Height: 1.65 m Weight: 70.9 kg Last Vital Signs Temp 37.1 C 05/23/21 10:23 Pulse 94 05/23/21 10:23 Resp 18 05/23/21 10:23 BP 94/64 L 05/23/21 10:23 Pulse Ox 100 05/23/21 10:23 Allergies Allergy/AdvReac Type Severity Reaction Status Date / Time No Known Allergies Allergy Verified 05/23/21 10:20 Home Medications Medication Instructions Recorded Confirmed Type gabapentin 300 mg capsule 300 mg PO TID cap 08/26/20 05/21/21 History Creon 1 cap PO TID 12/04/20 05/21/21 History buspirone 10 mg PO BID 12/04/20 05/21/21 History desvenlafaxine 50 mg PO DAILY 12/04/20 05/21/21 History lorazepam 0.5 mg PO TID PRN 12/04/20 05/21/21 History ondansetron 4 mg PO Q6H PRN 12/04/20 05/21/21 History cholecalciferol (vitamin D3) 125 mcg PO DAILY 12/05/20 05/21/21 History folic acid 1 mg PO DAILY 12/05/20 05/21/21 History multivitamin [Daily Multi-Vitamin] 1 tablet PO DAILY 12/05/20 05/21/21 History melatonin 3 mg PO HS 01/26/21 05/21/21 History quetiapine 50 mg PO HS 01/26/21 05/21/21 History spironolactone 50 mg PO DAILY 01/26/21 05/21/21 History levetiracetam 750 mg PO Q12H #180 tablet 01/28/21 05/21/21 Rx tramadol 50 mg PO Q4H PRN #10 tablet 04/01/21 05/21/21 Rx Laboratory Tests 05/20/21 05/22/21 05/22/21 23:28 15:39 20:29 WBC RBC Hgb 9.4 g/dL L D g/dL 9.5 g/dL L g/dL (12.0-15.0) (12.0-15.0) Hct 28.9 % L % 30.6 % L % (37.0-47.0) (37.0-47.0) MCV MCH MCHC RDW Plt Count MPV Immature Gran % (Auto) Neut % (Auto) Lymph % (Auto) [place] % (Auto) Eos % (Auto) Baso % (Auto) Lymph # (Auto) [place] # (Auto) Eos # (Auto) Baso # (Auto) Abs Immat Gran (auto) Absolute Neuts (auto) Absolute Nucleated RBC Nucleated RBC % % Immature Plt Fraction Sodium Potassium Chloride Carbon Dioxide Anion Gap BUN Creatinine Estim Creat Clear Calc Estimated GFR Glucose Calcium Blood Type O Negative Antibody Screen Negative Crossmatch See Detail 05/23/21 05/23/21 05/23/21 00:11 06:41 06:41 WBC 2.7 K/mm3 L K/mm3 (4.5-10.0) RBC 2.83 M/mm3 L M/mm3 (4.2-5.4) Hgb 8.3 g/dL L g/dL 8.3 g/dL L g/dL (12.0-15.0) (12.0-15.0) Hct 25.3 % L % 25.6 % L % (37.0-47.0) (37.0-47.0) MCV 90.5 fl fl (80-100) MCH 29.3 pg D pg (26-34) MCHC 32.4 g/dl g/dl (32-36) RDW 16.6 % H % (11.5-14.5) Plt Count 65 k/mm3 L k/mm3 (150-375) MPV 12.9 fl H fl (7.4-10.4) Immature Gran % (Auto) Neut % (Auto) Lymph % (Auto) [place] % (Auto) Eos % (Auto) Baso % (Auto) Lymph # (Auto) [place] # (Auto) Eos # (Auto) Baso # (Auto) Abs Immat Gran (auto) Absolute Neuts (auto) Absolute Nucleated RBC Nucleated RBC % % Immature Plt Fraction 12.6 % H % (0.9-11.2) Sodium 135 mmol/L L mmol/L (137-145) Potassium 3.6 mmol/L mmol/L (3.4-5.0) Chloride 110 mmol/L H mmol/L (98-107) Carbon Dioxide 20 mmol/L L mmol/L (22-30) Anion Gap 5 mmol/L L mmol/L (8-16) BUN 6 mg/dL L D mg/dL (7-17) Creat
[2021-05-23] MEDS: CHOLECALCIFEROL 1,000 UNITS TABLET 5000 UNITS PO (13:06)
[2021-05-23] MEDS: PANTOPRAZOLE 40 MG TABLET PO (13:06)
[2021-05-23] MEDS: GABAPENTIN 300 MG CAPSULE PO (13:07)
[2021-05-23] MEDS: DESVENLAFAXINE SUCCINATE 50 MG TAB.ER.24H PO (13:07)
[2021-05-23] MEDS: FOLIC ACID 1 MG TABLET PO (13:07)
[2021-05-23] MEDS: LIPASE/AMYLASE/PROTEASE 12,000 UNITS CAP 2 CAP PO (13:07)
[2021-05-23] MEDS: busPIRone HCL 10 MG TABLET PO (13:07)
[2021-05-23] MEDS: SPIRONOLACTONE 50 MG TABLET PO (13:07)
[2021-05-23] MEDS: levETIRAcetam 250 MG TABLET 750 MG PO (13:08)
[2021-05-23] MEDS: LORazepam (*CRX) 0.5 MG TABLET PO (15:30)
--- NOTE | 2021-05-23 16:31 | PM.DS ---
DS: Admitting Diagnosis Discharge Date 05/23/2021 Admitting Diagnosis Upper GI bleeding DS: Discharge Diagnosis Discharge Diagnosis (1) Symptomatic anemia: Code(s): D64.9 - Anemia, unspecified Status: Acute Assessment and Plan: Presented with increased weakness, dizziness, low blood pressure Clinical worsening of her chronic anemia without evidence for new nutritional deficiency, acute blood loss, or hemolysis Hemoglobin was 6.3 on presentation and she was transfused 2 unit PRBC with symptomatic improvement and hemoglobin increased to 7.5 Hemoglobin declined again to 6.1, she had 3rd and 4th unit of pRBC transfused 2/ Received IV iron supplementation 1 time dose on 05/21/21 She cannot tolerate oral iron and gets regular iron infusions She did endorse coffee-ground emesis and dark stool, therefore seen in consultation by Gastroenterology Underwent EGD on 05/23/2021 with push enteroscopy which did not reveal any signs of recent bleeding with mild gastritis From GI perspective, no further evaluation required. She needs to follow up with her established staff psychiatrist, Dr. Vargas at [facility] Continue folic acid supplement Protonix BID. Avoid NSAIDs. Repeat H&H in 1 week (2) Essential (primary) hypertension: Code(s): I10 - Essential (primary) hypertension Status: Chronic Assessment and Plan: Blood pressure reviewed and was well controlled, slightly soft on presentation (3) Chronic pancreatitis: Qualifiers: Pancreatitis type: alcohol induced Qualified Code(s): K86.0 - Alcohol-induced chronic pancreatitis Code(s): K86.1 - Other chronic pancreatitis Status: Chronic Assessment and Plan: No acute issues during this hospitalization. Continue Creon (4) Seizure disorder: Code(s): G40.909 - Epilepsy, unspecified, not intractable, without status epilepticus Status: Acute Assessment and Plan: Controlled. Continue Keppra (5) Thrombocytopenia: Code(s): D69.6 - Thrombocytopenia, unspecified Status: Acute Assessment and Plan: Possibly due to chronic alcohol use. She is established with Hematology who manages. She has follow-up scheduled with her maitre d (6) Depression: Qualifiers: Depression Type: unspecified Qualified Code(s): F32.A - Depression, unspecified Code(s): F32.9 - Major depressive disorder, single episode, unspecified Status: Acute Assessment and Plan: No acute issues during hospitalization. Continue home medication regimen DS: Summary Hospital Course Hospital Course: Date of admission: 05/21/2021 Date of discharge: 05/23/2021 Adina Jerome is a 50-year-old female with a history of chronic anemia, chronic pancreatitis, hypertension, thrombocytopenia, and seizure disorder who presented to the emergency department on 05/21/2021 with complaints of increased weakness, dizziness, lightheadedness. She was admitted to the hospitalist service for further evaluation management was seen in consultation by Gastroenterology. Please see above for further details. Her H&H stabilized following transfusion and she had symptomatic improvement. No findings of bleeding evident on EGD. She will follow-up with her staff psychiatrist and her maitre d. She was feeling improved and requested discharge home. She needed to attend to a family emergency and was quite eager for discharge. Given her overall improvement, she was determined to no longer require inpatient care and was felt to be stable for discharge. Discussed worrisome signs and symptoms for which to return and she was educated on her medications. She was discharged in hemodynamically stable condition on 05/23/2021. Status at Discharge Functional status at discharge: independent ambulation Overall status at discharge: patient is back to baseline Time Spent with Patient Time attestation: Total time spent p
== END 2021-05-23 17:30 | disposition home or self-care (01) | DRG 812 ==
LOC: ANHED 05-21 03:10 → ANH3MEDSUR 05-21 04:16
PROVIDERS: Internal Medicine; Internal Medicine Gastroenterology; Admitting Provider Internal Medicine; Emergency Provider Emergency Medicine; Visit Provider Physician Assistant
PROC: 0DJ08ZZ Inspection of Upper Intestinal Tract, Via Natural or Artificial Opening Endoscopic (ICD-10-PCS; CPT 43235; principal; 2021-05-23 13:15)
DX: D62 Acute posthemorrhagic anemia (principal); K86.0 Alcohol-induced chronic pancreatitis; K92.0 Hematemesis; K92.1 Melena; D69.59 Other secondary thrombocytopenia; I10 Essential (primary) hypertension; G40.909 Epilepsy, unspecified, not intractable, without status epilepticus; Z20.822 Contact with and (suspected) exposure to COVID-19; F32.9 Major depressive disorder, single episode, unspecified; D47.2 Monoclonal gammopathy; F41.9 Anxiety disorder, unspecified; K21.9 Gastro-esophageal reflux disease without esophagitis; K29.70 Gastritis, unspecified, without bleeding; Z79.899 Other long term (current) drug therapy
CPT/HCPCS: 36415; 36430; 80048; 80053; 81001; 82607; 82728; 82746; 83036; 83540; 83550; 83735; 85014; 85018; 85025; 85027; 85046; 85055; 85610; 85730; 86850; 86900; 86901; 86920; 93005; 96361; 96365; 96366; 96374; 96375; 96376; 99285; A9270; C9113; C9803; G0378; J0780; J1756; J1953; J2001; J2060; J2405; J2550; J2704; J3475; J3480; J7030; J7040; J7050; J7120; P9016; U0003; U0005

== ENCOUNTER 2021-07-08 15:11 | Observation (INO) | payer MEDICARE, BC, SELFPAY ==
[2021-07-08] VITALS (8 sets, daily range): BP systolic 107; BP diastolic 66; PULSE 75–105; RESP 10–23; TEMP 36.8; O2SAT 100
--- NOTE | ~2021-07-08 | XR_ITS ---
EXAMINATION: XR chest 1V portable DATE: 07/08/2021 19:07 INDICATION: Dyspnea on exertion. TECHNIQUE: A single frontal view of the chest was obtained. COMPARISON: Chest single view 03/31/2021, chest CT 03/31/2021 FINDINGS: There is mild atelectasis at left lung base. No pleural effusion or pneumothorax. The heart size is normal. IMPRESSION: 1. Mild atelectasis at left lung base. Reviewed, dictated and finalized at location A.
--- NOTE | 2021-07-08 15:41 | ECG_ITS ---
Measurements Intervals [place] Rate: 109 P: 19 [place]: 127 QRS: 11 QRSD: 88 T: -8 QT: 329 QTc: 444 Interpretive Statements SINUS TACHYCARDIA NONSPECIFIC T-WAVE ABNORMALITY BORDERLINE ECG COMPARED TO ECG 05/20/2021 22:55:11 HEART RATE HAS DECREASED Electronically Signed On 07-08-2021 17:36:01 CDT by Elmer Ann M.D.
--- NOTE | 2021-07-08 19:39 | ED.SOB ---
HPI - SOB/Dyspnea General Chief Complaint: Shortness of Breath/Dyspnea Stated Complaint: weakness x 2-3days, tachycardic/SOB with exertion Time Seen by Provider: 07/08/21 18:56 Source: patient Mode of arrival: ambulatory Limitations: no limitations History of Present Illness HPI Narrative: This is a 50-year-old female that presents to the emergency department for shortness of breath. Ongoing over the last 3 days. Associated with elevated heart rate. Symptoms present with exertion. Reports similar symptoms when her hemoglobin is low. She has history of iron deficiency anemia. There has not been an exact cause found of her blood loss. Reports she has had numerous endoscopies. They suspect she maybe has an AVM that intermittently bleeds. Denies chest pain, or lower extremity. Related Data Home Medications Medication Instructions Recorded Confirmed gabapentin 300 mg capsule 300 mg PO TID cap 08/26/20 05/21/21 Creon 1 cap PO TID 12/04/20 05/21/21 buspirone 10 mg PO BID 12/04/20 05/21/21 desvenlafaxine 50 mg PO DAILY 12/04/20 05/21/21 lorazepam 0.5 mg PO TID PRN 12/04/20 05/21/21 ondansetron 4 mg PO Q6H PRN 12/04/20 05/21/21 cholecalciferol (vitamin D3) 125 mcg PO DAILY 12/05/20 05/21/21 folic acid 1 mg PO DAILY 12/05/20 05/21/21 multivitamin [Daily Multi-Vitamin] 1 tablet PO DAILY 12/05/20 05/21/21 melatonin 3 mg PO HS 01/26/21 05/21/21 quetiapine 50 mg PO HS 01/26/21 05/21/21 spironolactone 50 mg PO DAILY 01/26/21 05/21/21 Allergies Allergy/AdvReac Type Severity Reaction Status Date / Time No Known Allergies Allergy Verified 05/23/21 10:20 Review of Systems Review of Systems: CONSTITUTIONAL: Denies fever CARDIOVASCULAR: Denies chest pain, or edema. RESPIRATORY: Reports dyspnea. Denies cough All systems reviewed & are unremarkable except as noted in HPI and below PMFSH Past Medical History Medical History Acute on chronic blood loss anemia Adenomatous colon polyp Anxiety Biliary stricture Chronic pancreatitis With history of pseudocyst. Coffee ground emesis Depression Esophageal varices Essential (primary) hypertension Gastroesophageal reflux disease History of alcohol abuse Sober since 2018. Iron deficiency anemia Monoclonal gammopathy of unknown significance Poorly documented. Occult GI bleeding Attributed to AVMs. Portal vein thrombosis Seizure disorder Surgical History Surgical History History of colonoscopy with polypectomy History of lumpectomy of right breast Presence of pancreatic duct stent Family History Family History Father Hypertension Cerebrovascular accident Congestive heart failure Mother Hypertension Rheumatoid arthritis Sibling Hypertension Anxiety Social History Social History Social History: Surrogate decision maker: Patricia Jerome, mother. Code status: Full code. Smoking status: Never smoker Second hand tobacco smoke exposure: No Alcohol intake: current Drinks per week: 2 Alcohol use details: Sober since 12/2017. Substance use: unknown Substance use type: does not use Additional living arrangements comments: The patient lives with her mother in [place]. 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 Spiritual care concerns: No Exam Narrative: GENERAL: Well-appearing, well-nourished, and in no acute distress. HEAD: Normocephalic, atraumatic. EYES: EOMI. ENT: Mucous membranes moist. Oropharynx without tonsillar hypertrophy exudate or other lesions. CHEST: Clear to auscultation. No respiratory distress. No wheezes rales or rhonchi HEART: Regular rate and rhythm. No murmur heard. Normal peripheral pulses. EXTREMITIES: Normal range of motion. No edema. SKIN: Warm, dry, no rash. EZEQUIEL
[2021-07-08 20:21] LABS: Basophils Absolute Auto 0.1 K/mm3 (0.0-0.1); Basophils Percent Auto 0.5 % (0.2-1.2); Eosinophils Absolute Auto 0.1 K/mm3 (0-0.3); Eosinophils Percent Auto 1.4 % (0-4.4); Immature Platelet Fraction Pct 16.2 % (0.9-11.2); Lymphocytes Absolute Auto 0.97 K/mm3 (0.9-3.2); Lymphocytes Percent Auto 9.5 % (18.3-44.2); Mean Corpuscular HGB Conc 28.7 g/dl (32-36); Mean Corpuscular Hemoglobin 25.1 pg (26-34); Mean Corpuscular Volume 87.4 fl (80-100); Mean Platelet Volume 11.9 fl (7.4-10.4); Monocytes Absolute Auto 0.9 K/mm3 (0.1-0.6); Monocytes Percent Auto 8.8 % (2.6-8.5); Neutrophils Absolute Auto 8.1 K/mm3 (1.3-6.7); Neutrophils Percent Auto 78.8 % (45.5-73.1); Nucleated Red Blood Cells Perc 0.4 % (0.0-0.2); Red Blood Count 2.15 M/mm3 (4.2-5.4); Red Cell Distribution Width 19.4 % (11.5-14.5); White Blood Count 10.2 K/mm3 (4.5-10.0)
[2021-07-08 20:28] LABS: Alanine Aminotransferase 18 U/L (4-35); Albumin Level 4.8 g/dL (3.5-5.1); Alkaline Phosphatase 69 U/L (38-126); Anion Gap 15 mmol/L (8-16); Aspartate Amino Transferase 32 U/L (14-36); Bilirubin,Total 0.6 mg/dL (0.2-1.3); Blood Urea Nitrogen 22 mg/dL (7-17); Calcium 8.7 mg/dL (8.4-10.2); Carbon Dioxide 24 mmol/L (22-30); Chloride 89 mmol/L (98-107); Estimated CRCL calculation 72 ml/min; Estimated Glomerular Filt Rate > 60; Glucose 110 mg/dL (65-110); Potassium 3.4 mmol/L (3.4-5.0); Sodium 128 mmol/L (137-145)
[2021-07-08 20:55] LABS: Hematocrit 18.8 % (37.0-47.0); Hemoglobin 5.4 g/dL (12.0-15.0)
[2021-07-08 20:59] LABS: Anisocytosis 2+ (NORMAL)
[2021-07-08 21:00] LABS: Hypochromasia 2+ (NORMAL); Platelet Clumps Present; Platelet Estimate Adequate (Adequate)
[2021-07-08 21:01] LABS: Poikilocytosis 1+ (NORMAL)
[2021-07-08 22:01] LABS: Partial Thromboplastin Time 25.4 SECONDS (22.3-36.8)
[2021-07-08 22:05] LABS: INR 1.1; Prothrombin Time 13.7 Seconds (11.1-14.7)
[2021-07-09] VITALS (23 sets, daily range): BP systolic 103–127; BP diastolic 54–86; PULSE 77–99; RESP 16–20; TEMP 36.5–37.2; O2SAT 91–100; BMI 27.2
--- NOTE | 2021-07-09 01:54 | ADMGEN ---
This patient, Adina Jerome, was admitted to 2 Medical Room [facility]-@ 0145 Patient/family oriented to hospital policies and general routines including ID bracelet, bed and alarms, visiting hours, pain management, procedures, bathroom and other care routines, personal items, smoking policy, room service/diet, and visiting hours. Information on how to activate the Rapid Response Team has been discussed. Patient/Family are encouraged to report perceived risks to care and to ask questions if they do not understand what they are told or what they should do.
[2021-07-09] MEDS: SODIUM CHLORIDE 0.9% IV 250 ML 30 ML IV CONT (02:17)
--- NOTE | 2021-07-09 05:10 | PM.IMHP ---
H&P: HPI History of Present Illness Date/Time: 07/09/21 05:10 Chief Complaint: Shortness of breath. Narrative: This is a 50-year-old female with past medical history significant for chronic pancreatitis, alcohol dependence although patient states that has been sober for 7 months, chronic anemia. Patient presents to the emergency room due to shortness of breath palpitations worsening for the last 3 days or so patient is known to have chronic anemia and has had multiple hospitalizations of blood transfusions as well as extensive work up in the outpatient setting. Patient denies any hematemesis , bright red blood per rectum or melena. Preliminary workup was significant for hemoglobin of 5.4, hematocrit of 18.8, sodium of 128. Patient is been admitted for further evaluation, management and treatment. [facility] Past Medical History Medical History Acute on chronic blood loss anemia Adenomatous colon polyp Anxiety Biliary stricture Chronic pancreatitis With history of pseudocyst. Coffee ground emesis Depression Esophageal varices Essential (primary) hypertension Gastroesophageal reflux disease History of alcohol abuse Sober since 2017. Iron deficiency anemia Monoclonal gammopathy of unknown significance Poorly documented. Occult GI bleeding Attributed to AVMs. Portal vein thrombosis Seizure disorder Surgical History Surgical History History of colonoscopy with polypectomy History of lumpectomy of right breast Presence of pancreatic duct stent Family History Family History Father Hypertension Cerebrovascular accident Congestive heart failure Mother Hypertension Rheumatoid arthritis Sibling Hypertension Anxiety Social History Social History Social History: Surrogate decision maker: Patricia Jerome, mother. Code status: Full code. Smoking status: Never smoker Second hand tobacco smoke exposure: No Alcohol intake: former Drinks per week: 2 Alcohol use details: Sober since 12/2017. Substance use: never Substance use type: does not use Additional living arrangements comments: The patient lives with her mother in [place]. 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 capsule 300 mg PO TID cap 08/26/20 07/09/21 History Creon 1 cap PO TID 12/04/20 07/09/21 History buspirone 10 mg PO BID 12/04/20 07/09/21 History desvenlafaxine 50 mg PO DAILY 12/04/20 07/09/21 History lorazepam 0.5 mg PO TID PRN 12/04/20 07/09/21 History ondansetron 4 mg PO Q6H PRN 12/04/20 07/09/21 History cholecalciferol (vitamin D3) 125 mcg PO DAILY 12/05/20 07/09/21 History folic acid 1 mg PO DAILY 12/05/20 07/09/21 History multivitamin [Daily Multi-Vitamin] 1 tablet PO DAILY 12/05/20 07/09/21 History melatonin 3 mg PO HS 01/26/21 07/09/21 History quetiapine 50 mg PO HS 01/26/21 07/09/21 History spironolactone 50 mg PO DAILY 01/26/21 07/09/21 History levetiracetam 750 mg PO Q12H #180 tablet 01/28/21 07/09/21 Rx tramadol 50 mg PO Q4H PRN #10 tablet 04/01/21 07/09/21 Rx pantoprazole 40 mg PO Q12HR #60 tablet 05/23/21 07/09/21 Rx Allergies Allergy/AdvReac Type Severity Reaction Status Date / Time No Known Allergies Allergy Verified 07/09/21 01:54 Vital Signs Vital Signs - 24 hr 07/08/21 15:41 07/08/21 21:51 07/08/21 22:00 Temperature 98.2 F Pulse Rate 75 105 H 95 Respiratory Rate 18 10 L 17 Blood Pressure 107/66 Pulse Oximetry 100 07/08/21 22:15 07/08/21 22:30 07/08/21 22:45 Temperature Pulse Rate 98 93 89 Respiratory Rate 23 H 21 H 23 H Blood Pressure Pulse Oximetry 07/08/21 2
--- NOTE | 2021-07-09 05:48 | PM.IMHP ---
H&P: HPI History of Present Illness Date/Time: 07/09/21 05:48 Chief Complaint: SOB. Narrative: Narrative: This is a 50-year-old female with past medical history significant for chronic pancreatitis, alcohol dependence although patient states that has been sober for 7 months, chronic anemia. Patient presents to the emergency room due to shortness of breath palpitations worsening for the last 3 days or so patient is known to have chronic anemia and has had multiple hospitalizations of blood transfusions as well as extensive work up in the outpatient setting. Patient denies any hematemesis , bright red blood per rectum or melena. Preliminary workup was significant for hemoglobin of 5.4, hematocrit of 18.8, sodium of 128. Patient is been admitted for further evaluation, management and treatment. Review of Systems Review of Systems: Shortness of breath, palpitations, with exertion. Constitutional: Constitutional: Denies chills, Denies fever(s), Denies malaise, Denies night sweats and Denies weakness Eyes: Eyes: Denies change in vision ENT: Denies dysphagia, Denies vertigo, Denies dizziness and Denies odynophagia Cardiovascular: Cardiovascular: Reports palpitations and Reports dyspnea Respiratory: Respiratory: Denies cough Gastrointestinal: Gastrointestinal: Reports abdominal pain, Denies diarrhea, Denies nausea and Denies vomiting Genitourinary: Genitourinary: Denies dysuria Musculoskeletal: Musculoskeletal: Denies back pain, Denies arthralgias and Denies joint swelling Integumentary/Breasts: Skin/Breast: Denies rash Neurologic: Denies focal weakness and Denies Sensory deficit (Neuro) Psychiatric: Psychiatric: Reports no additional psychiatric complaints and Reports as per HPI Endocrine: Endocrine: Denies cold intolerance, Denies heat intolerance, Denies increase in ring/shoe/hat size, Denies polyphagia, Denies polydipsia, Denies polyuria and Denies palpitations Hematologic/Lymphatic: Hematologic/Lymphatic: Reports no additional hematologic/lymphatic complaints and Reports as per HPI Allergic/Immunologic: Allergic/Immunologic: Reports no additional allergic/immunologic complaints and Reports as per HPI PMF Past Medical History Medical History Acute on chronic blood loss anemia Adenomatous colon polyp Anxiety Biliary stricture Chronic pancreatitis With history of pseudocyst. Coffee ground emesis Depression Esophageal varices Essential (primary) hypertension Gastroesophageal reflux disease History of alcohol abuse Sober since 2018. Iron deficiency anemia Monoclonal gammopathy of unknown significance Poorly documented. Occult GI bleeding Attributed to AVMs. Portal vein thrombosis Seizure disorder Surgical History Surgical History History of colonoscopy with polypectomy History of lumpectomy of right breast Presence of pancreatic duct stent Family History Family History Father Hypertension Cerebrovascular accident Congestive heart failure Mother Hypertension Rheumatoid arthritis Sibling Hypertension Anxiety Social History Social History Social History: Surrogate decision maker: Patricia Jerome, mother. Code status: Full code. Smoking status: Never smoker Second hand tobacco smoke exposure: No Alcohol intake: former Drinks per week: 2 Alcohol use details: Sober since 12/2017. Substance use: never Substance use type: does not use Additional living arrangements comments: The patient lives with her mother in [place]. 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
[2021-07-09 08:59] LABS: Basophils Percent Auto 0.2 % (0.2-1.2); Eosinophils Absolute Auto 0.1 K/mm3 (0-0.3); Eosinophils Percent Auto 1.1 % (0-4.4); Hematocrit 26.4 % (37.0-47.0); Hemoglobin 8.5 g/dL (12.0-15.0); Immature Granulocyte Absolute 0.07 K/mm3 (0.00-0.031); Immature Granulocyte Percent A 0.8 % (0-0.5); Lymphocytes Percent Auto 9.2 % (18.3-44.2); Mean Corpuscular HGB Conc 32.2 g/dl (32-36); Mean Corpuscular Hemoglobin 27.7 pg (26-34); Mean Platelet Volume 11.2 fl (7.4-10.4); Monocytes Percent Auto 11.3 % (2.6-8.5); Neutrophils Absolute Auto 6.7 K/mm3 (1.3-6.7); Neutrophils Percent Auto 77.4 % (45.5-73.1); Nucleated Red Blood Cells Absolute Auto 0.1 K/mm3 (0.0-0.012); Nucleated Red Blood Cells Perc 0.9 % (0.0-0.2); Platelet Count Result 180 k/mm3 (150-375); Red Blood Count 3.07 M/mm3 (4.2-5.4); Red Cell Distribution Width 16.8 % (11.5-14.5); White Blood Count 8.7 K/mm3 (4.5-10.0)
[2021-07-09 09:16] LABS: Alanine Aminotransferase 18 U/L (4-35); Albumin Level 4.5 g/dL (3.5-5.1); Alkaline Phosphatase 67 U/L (38-126); Anion Gap 12 mmol/L (8-16); Aspartate Amino Transferase 28 U/L (14-36); Bilirubin,Total 1.5 mg/dL (0.2-1.3); Blood Urea Nitrogen 15 mg/dL (7-17); Calcium 8.5 mg/dL (8.4-10.2); Carbon Dioxide 24 mmol/L (22-30); Chloride 92 mmol/L (98-107); Estimated CRCL calculation 94 ml/min; Estimated Glomerular Filt Rate > 60; Glucose 98 mg/dL (65-110); Potassium 3.3 mmol/L (3.4-5.0); Sodium 128 mmol/L (137-145)
[2021-07-09 09:40] LABS: Iron 61 ug/dL (37-170)
--- NOTE | 2021-07-09 09:42 | PM.IMPN ---
Progress Note: A&P Assessment and Plan (1) Acute on chronic blood loss anemia: Code(s): D62 - Acute posthemorrhagic anemia Status: Acute Assessment and Plan: - Transfuse as needed - Hgb post initial 2 units is 8.5/26.1. - Will need to follow up with Dr. Pisano as outpatient. The pt's anemia has been called Iron deficiency but Iron here today is 61. There is also mention of possible AVM, but this will need to be worked up as outpatient as well. - Will trend CBC's and monitor VS. (2) Chronic pancreatitis: Qualifiers: Pancreatitis type: alcohol induced Qualified Code(s): K86.0 - Alcohol-induced chronic pancreatitis Code(s): K86.1 - Other chronic pancreatitis Status: Chronic Assessment and Plan: - Not currently symptomatic. - Monitor. Continue Octreotide. (3) Seizure disorder: Code(s): G40.909 - Epilepsy, unspecified, not intractable, without status epilepticus Status: Chronic Assessment and Plan: - Continue home meds (4) MGUS (monoclonal gammopathy of unknown significance): Code(s): D47.2 - Monoclonal gammopathy Status: Chronic Assessment and Plan: - Follow-up in outpatient setting (5) Alcohol abuse: Code(s): F10.10 - Alcohol abuse, uncomplicated Status: Chronic Assessment and Plan: In remission (6) Hyperbilirubinemia: Code(s): E80.6 - Other disorders of bilirubin metabolism Status: Acute Assessment and Plan: - Noted to be elevated at 1.5. - Will monitor trend. - No RUQ abdominal tenderness and no HSM noted. (7) Hyponatremia: Code(s): E87.1 - Hypo-osmolality and hyponatremia Status: Acute Assessment and Plan: - Urine sodium and urine osmolality ordered. - 128 today - Monitor and trend labs. - Neuro checks. Time Spent With Patient Time with patient: 15 - 25 minutes Subjective Date/time seen: 07/09/21814 This pt. was examined at the bedside in interval assessment at the end of her second unit of blood transfusing. Her Hgb was 5.4/18.8 prior to transfusion and post transfusion it was 8.5/26.4. Pt. states she sees Dr. Pisano for her chronic anemia and has also had multiple endoscopies without any acute findings of bleeding, and they came to the conclusion that she likely has an AVM. Iron studies were ordered today and her Iron level is normal at 61. Her Sodium remains low at 128. Will check Osmolality studies. She has no complaints at this time to speak of and no CP, Dyspnea, N/V/D Review of Systems Review of Systems: All systems reviewed & are unremarkable except as noted in HPI and below Exam Const: General: comfortable and no acute distress HENMT: Mouth: Yes moist mucous membranes Eyes: Sclera: sclerae normal Neck: Neck: supple and no JVD Thyroid: thyroid normal Resp: Effort & Inspection: normal respiratory effort Auscultation: clear to auscultation bilaterally Cardio: Rate: regular rate Rhythm: regular rhythm GI: GI Palp: Yes Soft to palpation and No Tenderness to palpation present (GI) Auscultation: normal bowel sounds Skin: General skin exam: No normal color (pallor) and no rashes or lesions noted Neuro: General: gait normal Speech: normal speech Extrem: General: normal to inspection Psych: Mental Status: mental status grossly normal Affect: normal affect Objective Data Vital Signs Vital Signs: Vital Signs - 24 hr 07/08/21 15:41 07/08/21 21:51 07/08/21 22:00 Temperature 98.2 F Pulse Rate 75 105 H 95 Respiratory Rate 18 10 L 17 Blood Pressure 107/66 Pulse Oximetry 100 07/08/21 22:15 07/08/21 22:30 07/08/21 22:45 Temperature Pulse Rate 98 93 89 Respiratory Rate 23 H 21 H 23 H Blood Pressure Pulse Oximetry 07/08/21 23:44 07/08/21 23:45 07/09/21 00:00 Temperature Pulse Rate 92 89 87 Respiratory Rate 14 17 17 Blood Pressure 113/78 Pulse Oximetry 07/09/21 00:15 07/09/21 00:20
[2021-07-09 09:53] LABS: Percent Iron Saturation 12 % (20-50)
[2021-07-09] MEDS: LORazepam (*CRX) 0.5 MG TABLET PO ×2 (10:11→19:46)
[2021-07-09] MEDS: levETIRAcetam 250 MG TABLET PO ×2 (10:28→20:57)
[2021-07-09] MEDS: levETIRAcetam 500 MG TABLET PO ×2 (10:29→20:56)
[2021-07-09] MEDS: GABAPENTIN 300 MG CAPSULE PO ×2 (12:22→16:10)
[2021-07-09] MEDS: LIPASE/AMYLASE/PROTEASE 12,000 UNITS CAP 2 CAP PO ×2 (12:22→16:10)
[2021-07-09 13:25] LABS: Sodium Urine Random < 5 meq/L
[2021-07-09] MEDS: busPIRone HCL 10 MG TABLET PO (16:10)
[2021-07-09] MEDS: MELATONIN 3 MG TABLET PO (20:57)
[2021-07-09] MEDS: PANTOPRAZOLE 40 MG TABLET PO (20:57)
[2021-07-09] MEDS: QUEtiapine FUMARATE 25 MG TABLET 50 MG PO (20:57)
[2021-07-10] VITALS (9 sets, daily range): BP systolic 93–115; BP diastolic 55–82; PULSE 66–93; RESP 14–16; TEMP 36.4–37.1; O2SAT 97–100
[2021-07-10 05:07] LABS: Basophils Percent Auto 0.7 % (0.2-1.2); Eosinophils Absolute Auto 0.1 K/mm3 (0-0.3); Eosinophils Percent Auto 2.6 % (0-4.4); Hematocrit 25.7 % (37.0-47.0); Hemoglobin 8.1 g/dL (12.0-15.0); Immature Granulocyte Absolute 0.04 K/mm3 (0.00-0.031); Lymphocytes Absolute Auto 0.69 K/mm3 (0.9-3.2); Lymphocytes Percent Auto 16.5 % (18.3-44.2); Mean Corpuscular HGB Conc 31.5 g/dl (32-36); Mean Corpuscular Hemoglobin 26.8 pg (26-34); Mean Corpuscular Volume 85.1 fl (80-100); Mean Platelet Volume 11.8 fl (7.4-10.4); Monocytes Absolute Auto 0.6 K/mm3 (0.1-0.6); Monocytes Percent Auto 14.1 % (2.6-8.5); Neutrophils Absolute Auto 2.7 K/mm3 (1.3-6.7); Neutrophils Percent Auto 65.1 % (45.5-73.1); Nucleated Red Blood Cells Absolute Auto 0.1 K/mm3 (0.0-0.012); Nucleated Red Blood Cells Perc 1.2 % (0.0-0.2); Platelet Count Result 165 k/mm3 (150-375); Red Blood Count 3.02 M/mm3 (4.2-5.4); Red Cell Distribution Width 16.8 % (11.5-14.5); White Blood Count 4.2 K/mm3 (4.5-10.0)
[2021-07-10 05:14] LABS: Partial Thromboplastin Time 25.9 SECONDS (22.3-36.8)
[2021-07-10 05:24] LABS: Alanine Aminotransferase 17 U/L (4-35); Albumin Level 3.8 g/dL (3.5-5.1); Alkaline Phosphatase 66 U/L (38-126); Anion Gap 7 mmol/L (8-16); Aspartate Amino Transferase 24 U/L (14-36); Bilirubin,Total 0.6 mg/dL (0.2-1.3); Blood Urea Nitrogen 10 mg/dL (7-17); Calcium 8.6 mg/dL (8.4-10.2); Carbon Dioxide 25 mmol/L (22-30); Chloride 102 mmol/L (98-107); Estimated CRCL calculation 110 ml/min; Estimated Glomerular Filt Rate > 60; Glucose 104 mg/dL (65-110); Lipase 204 U/L (23-300); Potassium 3.1 mmol/L (3.4-5.0); Sodium 134 mmol/L (137-145)
[2021-07-10] MEDS: LIPASE/AMYLASE/PROTEASE 12,000 UNITS CAP 2 CAP PO ×3 (07:38→16:48)
[2021-07-10] MEDS: POTASSIUM CHLORIDE 20 MEQ TABLET 40 MEQ PO (07:38)
[2021-07-10] MEDS: POTASSIUM CHLORIDE 20 MEQ TABLET PO (07:38)
[2021-07-10] MEDS: MULTIVITAMINS THERAPEUTIC TAB (*BKC) 1 TABLET PO (08:05)
[2021-07-10] MEDS: SPIRONOLACTONE 50 MG TABLET PO (08:05)
[2021-07-10] MEDS: GABAPENTIN 300 MG CAPSULE PO ×3 (08:05→16:48)
[2021-07-10] MEDS: busPIRone HCL 10 MG TABLET PO ×2 (08:06→16:48)
[2021-07-10] MEDS: DESVENLAFAXINE SUCCINATE 50 MG TAB.ER.24H PO (08:06)
[2021-07-10] MEDS: levETIRAcetam 250 MG TABLET PO ×2 (08:06→20:02)
[2021-07-10] MEDS: levETIRAcetam 500 MG TABLET PO ×2 (08:06→20:02)
[2021-07-10] MEDS: PANTOPRAZOLE 40 MG TABLET PO ×2 (08:06→20:02)
[2021-07-10] MEDS: CHOLECALCIFEROL 1,000 UNITS TABLET 5000 UNITS PO (08:07)
[2021-07-10] MEDS: FOLIC ACID 1 MG TABLET PO (08:07)
--- NOTE | 2021-07-10 10:10 | PM.IMPN ---
Progress Note: A&P Assessment and Plan (1) Acute on chronic blood loss anemia: Code(s): D62 - Acute posthemorrhagic anemia Status: Acute Assessment and Plan: - Transfuse as needed - Hgb post initial 2 units is 8.5/26.1. - Will need to follow up with Dr. Pisano as outpatient. The pt's anemia has been called Iron deficiency but Iron here today is 61. There is also mention of possible AVM, but this will need to be worked up as outpatient as well. - Will trend CBC's and monitor VS. - Pt. with complaints of weakness and tachycardia with exertion, query hypovolemia as causation? (2) Chronic pancreatitis: Qualifiers: Pancreatitis type: alcohol induced Qualified Code(s): K86.0 - Alcohol-induced chronic pancreatitis Code(s): K86.1 - Other chronic pancreatitis Status: Chronic Assessment and Plan: - Not currently symptomatic. - Monitor. Continue Octreotide. (3) Seizure disorder: Code(s): G40.909 - Epilepsy, unspecified, not intractable, without status epilepticus Status: Chronic Assessment and Plan: - Continue home meds (4) MGUS (monoclonal gammopathy of unknown significance): Code(s): D47.2 - Monoclonal gammopathy Status: Chronic Assessment and Plan: - Follow-up in outpatient setting (5) Alcohol abuse: Code(s): F10.10 - Alcohol abuse, uncomplicated Status: Chronic Assessment and Plan: - In remission - No tremor noted on exam. (6) Hyperbilirubinemia: Code(s): E80.6 - Other disorders of bilirubin metabolism Status: Resolved Assessment and Plan: - Now normal. - Will monitor trend. - No RUQ abdominal tenderness and no HSM noted. (7) Hyponatremia: Code(s): E87.1 - Hypo-osmolality and hyponatremia Status: Acute Assessment and Plan: - Urine sodium and urine osmolality ordered. - 128 today - Monitor and trend labs. - Neuro checks. - Corrected itself overnight. Now 134 and urine sodium is 134. Urine osmolality is still pending, but there does not appear to be any current Fluid level deficit or over concentration. - Query this as the cause of the potential Tachycardia with exertion overnight? Additional Plan We will re-evaluate the patient's labs in the AM to look at H&H as well as electrolytes. If all is stable and she does not have any increaesed weakness and can ambulate with good endurance, we will consider discharge at that time. Time Spent With Patient Time with patient: 15 - 25 minutes Subjective Date/time seen: 07/10/21 0840 This pt. was examined at the bedside at this time in interval assessment of her acute on chronic anemia thought to be caused by AVM vs. iron deficiency, and her overall generalized weakness. She has no acute complaints at this time and she has no pain including CP, Dyspnea, N/V/D/urinary complaints. I am told that overnight when the pt. would get up to ambulate to the bathroom that she would have Sinus tachycardia. She did not have any pain with it. The pt. was transfused 2 untis PRBC's yesterday with Hgb correcting to 8.5. It has dropped back today to 8.1. In addition, her potassium today is low at 3.1. Given that she is having tachycardia with exertion, we will continue to monitor her telemetry labs and overall weakness today. Pt. follows with Dr. Pisano regarding her anemia. Review of Systems Review of Systems: All systems reviewed & are unremarkable except as noted in HPI and below Exam Const: General: comfortable and no acute distress HENMT: Mouth: Yes moist mucous membranes Eyes: Sclera: sclerae normal Neck: Neck: supple and no JVD Thyroid: thyroid normal Lymphatic: lymphadenopathy not noted Resp: Effort & Inspection: normal respiratory effort Auscultation: clear to auscultation bilaterally Cardio: Rate: regular rate Rhythm: regular rhythm Other: Tachy at times with exertion according to monitoring manager. GI: GI Palp: Yes Soft to pa
[2021-07-10] MEDS: MELATONIN 3 MG TABLET PO (20:02)
[2021-07-10] MEDS: LORazepam (*CRX) 0.5 MG TABLET PO (20:02)
[2021-07-10] MEDS: QUEtiapine FUMARATE 25 MG TABLET 50 MG PO (20:02)
[2021-07-11] VITALS: PULSE 73
[2021-07-11 04:00] VITALS: PULSE 82
[2021-07-11 06:31] VITALS: BP 127/79; PULSE 87; RESP 18; TEMP 36.7; O2SAT 91
[2021-07-11 07:31] LABS: Basophils Percent Auto 0.6 % (0.2-1.2); Eosinophils Absolute Auto 0.2 K/mm3 (0-0.3); Eosinophils Percent Auto 3.9 % (0-4.4); Hematocrit 26.3 % (37.0-47.0); Hemoglobin 8.2 g/dL (12.0-15.0); Immature Granulocyte Absolute 0.04 K/mm3 (0.00-0.031); Immature Granulocyte Percent A 0.8 % (0-0.5); Lymphocytes Absolute Auto 0.77 K/mm3 (0.9-3.2); Lymphocytes Percent Auto 15.9 % (18.3-44.2); Mean Corpuscular HGB Conc 31.2 g/dl (32-36); Mean Corpuscular Hemoglobin 27.2 pg (26-34); Mean Corpuscular Volume 87.1 fl (80-100); Mean Platelet Volume 11.5 fl (7.4-10.4); Monocytes Absolute Auto 0.7 K/mm3 (0.1-0.6); Monocytes Percent Auto 14.1 % (2.6-8.5); Neutrophils Absolute Auto 3.1 K/mm3 (1.3-6.7); Neutrophils Percent Auto 64.7 % (45.5-73.1); Nucleated Red Blood Cells Perc 0.4 % (0.0-0.2); Platelet Count Result 182 k/mm3 (150-375); Red Blood Count 3.02 M/mm3 (4.2-5.4); Red Cell Distribution Width 17.2 % (11.5-14.5); White Blood Count 4.8 K/mm3 (4.5-10.0)
[2021-07-11 07:41] LABS: Anion Gap 8 mmol/L (8-16); Blood Urea Nitrogen 8 mg/dL (7-17); Calcium 8.7 mg/dL (8.4-10.2); Carbon Dioxide 23 mmol/L (22-30); Chloride 103 mmol/L (98-107); Estimated CRCL calculation 94 ml/min; Estimated Glomerular Filt Rate > 60; Glucose 118 mg/dL (65-110); Potassium 3.8 mmol/L (3.4-5.0); Sodium 134 mmol/L (137-145)
[2021-07-11 08:00] VITALS: PULSE 97
[2021-07-11] MEDS: LIPASE/AMYLASE/PROTEASE 12,000 UNITS CAP 2 CAP PO (08:22)
[2021-07-11] MEDS: levETIRAcetam 250 MG TABLET PO (08:23)
[2021-07-11] MEDS: levETIRAcetam 500 MG TABLET PO (08:23)
[2021-07-11] MEDS: GABAPENTIN 300 MG CAPSULE PO (08:23)
[2021-07-11] MEDS: CHOLECALCIFEROL 1,000 UNITS TABLET 5000 UNITS PO (08:23)
[2021-07-11] MEDS: busPIRone HCL 10 MG TABLET PO (08:24)
[2021-07-11] MEDS: FOLIC ACID 1 MG TABLET PO (08:24)
[2021-07-11] MEDS: SPIRONOLACTONE 50 MG TABLET PO (08:24)
[2021-07-11] MEDS: PANTOPRAZOLE 40 MG TABLET PO (08:25)
[2021-07-11] MEDS: MULTIVITAMINS THERAPEUTIC TAB (*BKC) 1 TABLET PO (08:25)
[2021-07-11] MEDS: DESVENLAFAXINE SUCCINATE 50 MG TAB.ER.24H PO (08:25)
[2021-07-11] MEDS: polyethylene glycoL 3350 17 GM POWD.PACK PO (08:55)
--- NOTE | 2021-07-11 09:59 | PM.DS ---
DS: Admitting Diagnosis Discharge Date 07/11/2021 Admitting Diagnosis 1) Acute on chronic blood loss anemia 2) Chronic Pancreatitis 3) Seizure disorder 4) MGUS 5) Alcohol abuse DS: Discharge Diagnosis Discharge Diagnosis (1) Acute on chronic blood loss anemia: Code(s): D62 - Acute posthemorrhagic anemia Status: Acute Assessment and Plan: - Transfuse as needed - Hgb post initial 2 units is 8.5/26.1. - Will need to follow up with Dr. Pisano as outpatient. The pt's anemia has been called Iron deficiency but Iron here today is 61. There is also mention of possible AVM, but this will need to be worked up as outpatient as well. - Will trend CBC's and monitor VS. - Pt. with complaints of weakness and tachycardia with exertion, query hypovolemia as causation? - Pt. reports that she is feeling much better today and her Hgb is stable, so she will be discharged at this time and she will be advised to follow up with Dr. Pisano. (2) Chronic pancreatitis: Qualifiers: Pancreatitis type: alcohol induced Qualified Code(s): K86.0 - Alcohol-induced chronic pancreatitis Code(s): K86.1 - Other chronic pancreatitis Status: Chronic Assessment and Plan: - Not currently symptomatic. - Monitor. Continue Octreotide. - Remained asymptomatic during hospitalization. (3) Seizure disorder: Code(s): G40.909 - Epilepsy, unspecified, not intractable, without status epilepticus Status: Chronic Assessment and Plan: - Continue home meds (4) MGUS (monoclonal gammopathy of unknown significance): Code(s): D47.2 - Monoclonal gammopathy Status: Chronic Assessment and Plan: - Follow-up in outpatient setting (5) Alcohol abuse: Code(s): F10.10 - Alcohol abuse, uncomplicated Status: Chronic Assessment and Plan: - In remission - No tremor noted on exam. (6) Hyperbilirubinemia: Code(s): E80.6 - Other disorders of bilirubin metabolism Status: Resolved Assessment and Plan: - Now normal. - Will monitor trend. - No RUQ abdominal tenderness and no HSM noted. (7) Hyponatremia: Code(s): E87.1 - Hypo-osmolality and hyponatremia Status: Acute Assessment and Plan: - Urine sodium and urine osmolality ordered. - 128 today - Monitor and trend labs. - Neuro checks. - Corrected itself overnight. Now 134 and urine sodium is 134. Urine osmolality is still pending, but there does not appear to be any current Fluid level deficit or over concentration. - Query this as the cause of the potential Tachycardia with exertion overnight? - Stable and ready for discharge to be re-evaluated by PCP as needed. DS: Summary Hospital Course Reason for hospitalization: Dyspnea with palpitations and weakness. Hospital Course: This pleasant, 50 year old female patient with past medical history significant for chronic pancreatitis, alcohol dependence although patient states that has been sober for 7 months, and chronic anemia, presented to the ER on 07/08/2021 with complaints of feeling dyspneic and having palpitations for approximately three days. She has had a high number of hospitalizations and blood transfusions and has seen Dr. Pisano for her ongoing anemia and will continue to follow with him. Her ER workup was significant for Hgb of 5.4 and a Hematocrit of 18.8. In addition, her sodium was 128. She was admitted to the hospital for further treatment and was transfused with favorable post-transfusion results. She did also have some Hypokalemia while here and that too was treated and is now resolved. The pt. reports that she feels stronger and is overall feeling better at this time and she is stable for discharge to home at this time with close follow up with Dr. Pisano. Status at Discharge Functional status at discharge: independent ambulation Overall status at discharge: patient is back to baseline Time Spent with Patient Time attestation: Total cheikh
[2021-07-11] MEDS: LORazepam (*CRX) 0.5 MG TABLET PO (10:06)
[2021-07-13 05:57] LABS: Osmolality, Urine 211 mOsm/kg (50-1200)
== END 2021-07-11 11:25 | disposition home or self-care (01) ==
LOC: ANHED 19:58 → ANH2MED 22:55
PROVIDERS: Physician Assistant; Admitting Provider Internal Medicine; Emergency Provider Emergency Medicine; PCP Family Medicine; Visit Provider Nurse Practitioner Adult Health
DX: D62 Acute posthemorrhagic anemia (principal); D50.9 Iron deficiency anemia, unspecified; K86.0 Alcohol-induced chronic pancreatitis; G40.909 Epilepsy, unspecified, not intractable, without status epilepticus; D47.2 Monoclonal gammopathy; F10.10 Alcohol abuse, uncomplicated; E87.6 Hypokalemia; E87.1 Hypo-osmolality and hyponatremia; F32.A Depression, unspecified; I10 Essential (primary) hypertension; K21.9 Gastro-esophageal reflux disease without esophagitis; R06.00 Dyspnea, unspecified; R00.2 Palpitations; R53.1 Weakness
CPT/HCPCS: 36415; 36430; 71045; 80048; 80053; 83540; 83550; 83690; 83735; 83935; 84300; 85025; 85055; 85610; 85730; 86850; 86900; 86901; 86920; 93005; 99285; A9270; G0378; J7050; P9016

== ENCOUNTER 2021-12-13 18:44 | Observation (INO) | payer MEDICARE, BC, SELFPAY ==
[2021-12-13] VITALS (13 sets, daily range): BP systolic 91–143; BP diastolic 54–131; PULSE 105–150; RESP 16–24; TEMP 36.8–37.1; O2SAT 99–100
--- NOTE | ~2021-12-13 | CT_ITS ---
EXAMINATION: CT abdomen pelvis wo con DATE: 12/14/2021 00:23 INDICATION: Epigastric abdominal pain. TECHNIQUE: Computed tomography (CT) of the abdomen and pelvis was performed without intravenous contr ast. Automated exposure control and iterative reconstruction technique were employed. The dose-length product was 569.12 mGy-cm. COMPARISON: CT abdomen and pelvis 11/24/2018 FINDINGS: The visualized portions of the lung bases demonstrate minimal atelectasis. No pleural effus ion. The heart size is normal. No pericardial effusion. There is diffuse hepatic steatosis. The gallb ladder, spleen, adrenal glands, and kidneys are normal. The pancreas demonstrates parenchymal calcifi cations and adjacent fat stranding with architectural distortion. There are calcified fibroids in the uterus. There is a tubular cystic structure in left adnexa, consistent with hydrosalpinx. There are no dilated loops of bowel. The appendix is not visualized. There are no pathologically enlarged lymph nodes. There is no free intraperitoneal fluid. There is moderate lumbar spondylosis. There are chron ic bilateral L4 pars defects. There is 7 mm anterolisthesis of L4 on L5. IMPRESSION: 1. Acute on chronic pancreatitis. 2. Diffuse hepatic steatosis. 3. Left-sided hydrosalpinx. Reviewed, dictated and finalized at location A.
--- NOTE | 2021-12-13 18:53 | ECG_ITS ---
Measurements Intervals [place] Rate: 138 P: 32 TX: 116 QRS: 34 QRSD: 76 T: 34 QT: 301 QTc: 457 Interpretive Statements SINUS TACHYCARDIA WITH SHORT TX INTERVAL BORDERLINE ST-T WAVE ABNORMALITY- DIFFUSE LEADS ABNORMAL ECG COMPARED TO ECG 07/08/2021 15:49:05 HEART RATE HAS INCREASED Electronically Signed On 12-13-2021 21:03:54 CDT by Tyler Lord D.O.
[2021-12-13 18:58] LABS: Basophils Percent Auto 0.2 % (0.2-1.2); Eosinophils Percent Auto 0.1 % (0-4.4); Immature Granulocyte Absolute 0.05 K/mm3 (0.00-0.031); Immature Granulocyte Percent A 0.6 % (0-0.5); Lymphocytes Absolute Auto 0.34 K/mm3 (0.9-3.2); Lymphocytes Percent Auto 4.1 % (18.3-44.2); Mean Corpuscular HGB Conc 27.7 g/dl (32-36); Mean Corpuscular Hemoglobin 21.8 pg (26-34); Mean Corpuscular Volume 78.6 fl (80-100); Monocytes Absolute Auto 0.7 K/mm3 (0.1-0.6); Monocytes Percent Auto 8.7 % (2.6-8.5); Neutrophils Absolute Auto 7.2 K/mm3 (1.3-6.7); Neutrophils Percent Auto 86.3 % (45.5-73.1); Nucleated Red Blood Cells Absolute Auto 0.1 K/mm3 (0.0-0.012); Nucleated Red Blood Cells Perc 1.2 % (0.0-0.2); Platelet Count Result 263 k/mm3 (150-375); Red Cell Distribution Width 18.1 % (11.5-14.5); White Blood Count 8.3 K/mm3 (4.5-10.0)
[2021-12-13 19:09] LABS: Alanine Aminotransferase 33 U/L (6-35); Albumin Level 4.8 g/dL (3.5-5.1); Alkaline Phosphatase 83 U/L (38-126); Anion Gap 24 mmol/L (8-16); Aspartate Amino Transferase 38 U/L (14-36); Bilirubin,Total 1.4 mg/dL (0.2-1.3); Blood Urea Nitrogen 17 mg/dL (7-17); Calcium 9.2 mg/dL (8.4-10.2); Carbon Dioxide 14 mmol/L (22-30); Chloride 94 mmol/L (98-107); Estimated CRCL calculation 86 ml/min; Estimated Glomerular Filt Rate > 60; Glucose 246 mg/dL (65-110); Lipase 400 U/L (23-300); Potassium 4.2 mmol/L (3.4-5.0); Sodium 132 mmol/L (137-145)
[2021-12-13 19:13] LABS: Hemoglobin 6.1 g/dL (12.0-15.0)
[2021-12-13 19:15] LABS: Anisocytosis 3+ (NORMAL); Platelet Estimate Adequate (Adequate)
[2021-12-13 19:16] LABS: Hypochromasia 1+ (NORMAL)
[2021-12-13 19:31] LABS: Appearance Urine Clear (Clear); Bilirubin Urine 2+ (Negative); Blood Urine Negative (Negative); Color Urine Yellow (Yellow); Glucose Urine UA Negative (Negative); Ketones Urine 4+ mg/dL (Negative); Leukocyte Esterase Ur Negative LEU/UL (Negative); Nitrate Urine Negative (Negative); Protein Urine 1+ mg/dL (Negative); Specific Grav Ur >= 1.030 (1.001-1.035); Urobilinogen Urine 0.2 mg/dL (<2.0); pH Urine 5.5 (5.0-9.0)
--- NOTE | 2021-12-13 19:36 | ED.NAVMDI ---
HPI - Nausea/Vomiting/Diarrhea General Chief complaint: Nausea/Vomiting/Diarrhea Stated complaint: ABD PAIN, N/V Time Seen by Provider: 12/13/21 19:15 History of Present Illness HPI Narrative: This is a 51-year-old female with past medical history of chronic alcohol abuse, pancreatitis and anemia, who presents emergency department with 3 days of vomiting and epigastric pain. She states she attempted to manage her symptoms at home but noted worsening of vomiting today. She feels dehydrated with epigastric pain, sharp, 4 out of 10, that does not radiate. She denies loss of consciousness, chest pain or shortness of breath. She denies bleeding and vomiting or stool., She states her last bowel movement yesterday and appeared normal. Related Data Home Medications Medication Instructions Recorded Confirmed gabapentin 300 mg capsule 300 mg PO TID 08/26/20 12/14/21 desvenlafaxine 50 mg 50 mg PO QAM 12/04/20 12/14/21 tablet,extended release 24 hr snnyto-fkciiewn-anmvovq 1 cap PO TID 12/04/20 12/14/21 24,000-76,000-120,000 unit capsule,delayed rel (Creon) lorazepam 0.5 mg tablet 0.5 mg PO TID PRN Anxiety 12/04/20 12/14/21 ondansetron 4 mg disintegrating 4 mg PO Q6H PRN Nausea 12/04/20 12/14/21 tablet cholecalciferol (vitamin D3) 125 125 mcg PO QAM 12/05/20 12/14/21 mcg (5,000 unit) capsule folic acid 1 mg tablet 1 mg PO DAILY 12/05/20 12/14/21 multivitamin (Daily Multi-Vitamin 1 tablet PO DAILY 12/05/20 12/14/21 tablet) quetiapine 50 mg tablet 50 mg PO HS 01/26/21 12/14/21 buspirone 5 mg tablet 5 mg PO BID 12/14/21 12/14/21 melatonin 5 mg tablet 5 mg PO QHS 12/14/21 12/14/21 metoprolol succinate 25 mg 25 mg PO QAM 12/14/21 12/14/21 tablet,extended release 24 hr Allergies Allergy/AdvReac Type Severity Reaction Status Date / Time No Known Allergies Allergy Verified 12/13/21 18:46 Review of Systems Review of Systems: CONSTITUTIONAL: Fatigue denies fever, chills, or sweats. EYES: Denies visual changes, redness, or discharge. ENT: Denies rhinorrhea, congestion, sore throat, or otalgia. CARDIOVASCULAR: Denies chest pain, palpitations, or edema. RESPIRATORY: Denies cough or dyspnea. GASTROINTESTINAL: abdominal pain, nausea, vomiting, Denies diarrhea. Denies blood in stool or vomit GENITOURINARY: Denies dysuria or hematuria. SKIN: Denies rash or itching. MUSCULOSKELETAL: Denies back pain, joint pain, or myalgia. NEUROLOGIC: Denies headache, numbness, dizziness, or weakness. PSYCHIATRIC: Denies anxiety or depression. [facility] Past Medical History Medical History Acute on chronic blood loss anemia Adenomatous colon polyp Anxiety Biliary stricture Chronic pancreatitis With history of pseudocyst. Coffee ground emesis Depression Esophageal varices Essential (primary) hypertension Gastroesophageal reflux disease History of alcohol abuse Sober since 2018. Inflammatory arthritis Iron deficiency anemia Monoclonal gammopathy of unknown significance Poorly documented. Occult GI bleeding Attributed to AVMs. Portal vein thrombosis Seizure disorder Surgical History Surgical History History of colonoscopy with polypectomy History of lumpectomy of right breast Presence of pancreatic duct stent Family History Family History Father Hypertension Cerebrovascular accident Congestive heart failure Mother Hypertension Rheumatoid arthritis Sibling Hypertension Anxiety Social History Social History Social History: Surrogate decision maker: Patricia Jerome, mother. Code status: Full code. Smoking status: Never smoker Second hand tobacco smoke exposure: No Alcohol intake: former Drinks per week: 2 Alcohol use details: Sober since 12/2017. Substance use: never Substance use type: does no
[2021-12-13 19:46] LABS: Add Urine Microscopic? YES
[2021-12-13 19:47] LABS: RBC Urine None seen /hpf (0-2); WBC Urine 0-3 /hpf
[2021-12-13 19:48] LABS: Bacteria Urine Trace /hpf; Squamous Epithelial Cell Urine Few /hpf (Few)
[2021-12-13] MEDS: MORPHINE SULFATE (*CRX) 4 MG/ML INJ IV PUSH (20:06)
[2021-12-13] MEDS: SODIUM CHLORIDE 0.9% IV 1,000 ML 999 ML IV CONT (20:06)
[2021-12-13] MEDS: PROCHLORPERAZINE EDISYLATE 10 MG/2 ML VIAL IV PUSH (20:06)
[2021-12-13 20:18] LABS: Hematocrit 21.3 % (37.0-47.0)
--- NOTE | 2021-12-13 22:27 | PC.NURSE ---
Called lab to obtain labs on pt d/t difficult stick
[2021-12-14] VITALS (20 sets, daily range): BP systolic 113–150; BP diastolic 74–98; PULSE 85–119; RESP 16–27; TEMP 36.2–37.4; O2SAT 97–100; BMI 26.6
[2021-12-14 00:17] LABS: Lactic Acid Reflex 1.9 mmol/L (0.7-2.0)
--- NOTE | 2021-12-14 00:45 | PM.IMHP ---
H&P: HPI History of Present Illness Date/Time: 12/14/21 00:45 Chief Complaint: nausea and vomiting Narrative: This is a 51-year-old female with past medical history significant for alcohol dependence, patient now has been sobered, chronic pancreatitis, pancreatic pseudocyst, anemia iron deficiency, generalized anxiety disorder, esophageal varices, gastroesophageal reflux disease, monoclonal gammopathy of uncertain significance. patient presents to the emergency room due to intractable nausea and vomiting for the last 2 days or so worse on the 2nd day has not been able to eat or keep anything down, no denies any abdominal pain, any diarrhea, any fevers, rigors, chills, no syncope, or near syncope, no hematemesis, no melena, no bright red blood per rectum. preliminary workup was significant for CT of abdomen and pelvis with no acute changes, CBC hemoglobin was 6, hematocrit 22, sodium 132, chloride 88, bicarb 19, anion gap of 24. in emergency room was transfuse 1 unit of packed red blood cells, patient has been admitted for further evaluation management and treatment. Review of Systems Review of Systems: nausea and vomiting unable to keep anything down for the last 3 days Constitutional: Constitutional: Denies chills, Denies fever(s), Reports lethargy, Denies malaise, Denies night sweats and Reports weakness Eyes: Eyes: Denies change in vision ENT: Denies dysphagia, Denies vertigo, Denies dizziness and Denies odynophagia Cardiovascular: Cardiovascular: Denies chest pain, Denies syncope, Denies irregular heart rhythm, Denies lightheadedness, Denies palpitations and Denies dyspnea on exertion Respiratory: Respiratory: Denies change in phlegm color, Denies chest congestion, Denies excessive phlegm production, Denies pain on inspiration and Denies dyspnea Gastrointestinal: Gastrointestinal: Denies abdominal pain, Denies dyspepsia, Denies heartburn, Denies diarrhea, Reports nausea and Reports vomiting Genitourinary: Genitourinary: Denies dysuria Musculoskeletal: Musculoskeletal: Denies back pain, Denies joint swelling and Denies muscle weakness Integumentary/Breasts: Skin/Breast: Denies rash Neurologic: Denies focal weakness and Denies Sensory deficit (Neuro) Psychiatric: Psychiatric: Reports no additional psychiatric complaints and Reports as per HPI Endocrine: Endocrine: Reports no additional endocrine complaints and Reports as per HPI Hematologic/Lymphatic: Hematologic/Lymphatic: Reports no additional hematologic/lymphatic complaints and Reports as per HPI [facility] Past Medical History Medical History Acute on chronic blood loss anemia Adenomatous colon polyp Anxiety Biliary stricture Chronic pancreatitis With history of pseudocyst. Coffee ground emesis Depression Esophageal varices Essential (primary) hypertension Gastroesophageal reflux disease History of alcohol abuse Sober since 2018. Inflammatory arthritis Iron deficiency anemia Monoclonal gammopathy of unknown significance Poorly documented. Occult GI bleeding Attributed to AVMs. Portal vein thrombosis Seizure disorder Surgical History Surgical History History of colonoscopy with polypectomy History of lumpectomy of right breast Presence of pancreatic duct stent Family History Family History Father Hypertension Cerebrovascular accident Congestive heart failure Mother Hypertension Rheumatoid arthritis Sibling Hypertension Anxiety Social History Social History Social History: Surrogate decision maker: Patricia Jerome, mother. Code status: Full code. Smoking status: Never smoker Second hand tobacco smoke exposure: No Alcohol intake: former Drinks per week: 2 Alcohol use details: Sober since 12/2017. Substance use: never Nicole
[2021-12-14 01:18] LABS: Alanine Aminotransferase 34 U/L (6-35); Albumin Level 4.7 g/dL (3.5-5.1); Alkaline Phosphatase 70 U/L (38-126); Anion Gap 25 mmol/L (8-16); Aspartate Amino Transferase 41 U/L (14-36); Bilirubin,Total 1.3 mg/dL (0.2-1.3); Blood Urea Nitrogen 20 mg/dL (7-17); Calcium 8.3 mg/dL (8.4-10.2); Carbon Dioxide 19 mmol/L (22-30); Chloride 88 mmol/L (98-107); Estimated CRCL calculation 75 ml/min; Estimated Glomerular Filt Rate > 60; Glucose 201 mg/dL (65-110); Sodium 132 mmol/L (137-145)
[2021-12-14] MEDS: SODIUM CHLORIDE 0.9% IV 1,000 ML 125 ML IV CONT ×3 (02:04→21:13)
--- NOTE | 2021-12-14 02:14 | ADMGEN ---
This patient, Adina Jerome, was admitted to 3 [facility] Surg Room 315-02. Patient/family oriented to hospital policies and general routines including ID bracelet, bed and alarms, visiting hours, pain management, procedures, bathroom and other care routines, personal items, smoking policy, room service/diet, and visiting hours. Information on how to activate the Rapid Response Team has been discussed. Patient/Family are encouraged to report perceived risks to care and to ask questions if they do not understand what they are told or what they should do.
[2021-12-14] MEDS: ONDANSETRON INJ 4 MG/2 ML VIAL IV PUSH ×3 (04:37→21:05)
[2021-12-14] MEDS: HYDROmorphone HCL INJ (*CRX) 1 MG/ML SYR IV PUSH (04:37)
[2021-12-14 08:14] LABS: Hematocrit 23.1 % (37.0-47.0)
[2021-12-14 08:18] LABS: Hemoglobin 6.6 g/dL (12.0-15.0)
[2021-12-14] MEDS: ENOXAPARIN 40 MG/0.4 ML SYRINGE SUB-Q (09:43)
[2021-12-14] MEDS: PANTOPRAZOLE 40 MG TABLET PO ×2 (09:43→21:16)
[2021-12-14] MEDS: MULTIVITAMINS THERAPEUTIC TAB (*BKC) 1 TABLET PO (09:43)
[2021-12-14] MEDS: busPIRone HCL 5 MG TABLET PO ×2 (09:43→18:07)
[2021-12-14] MEDS: DESVENLAFAXINE SUCCINATE 50 MG TAB.ER.24H PO (09:43)
[2021-12-14] MEDS: CHOLECALCIFEROL 1,000 UNITS TABLET 5000 UNITS PO (09:43)
[2021-12-14] MEDS: FOLIC ACID 1 MG TABLET PO (09:43)
[2021-12-14] MEDS: levETIRAcetam 250 MG TABLET 750 MG PO ×2 (09:43→21:15)
[2021-12-14] MEDS: GABAPENTIN 300 MG CAPSULE PO ×3 (09:44→18:06)
[2021-12-14] MEDS: METOPROLOL SUCCINATE EXT REL 25 MG TABCR PO (09:44)
[2021-12-14] MEDS: SODIUM CHLORIDE 0.9% IV 250 ML 30 ML IV CONT (09:44)
--- NOTE | 2021-12-14 10:17 | PM.IMPN ---
Progress Note: A&P Assessment and Plan (1) Intractable nausea and vomiting: Code(s): R11.2 - Nausea with vomiting, unspecified Status: Acute Assessment and Plan: Etiology unclear. Patient reports this is a frequent issue and relates this to chronic pancreatitis Reports dark emesis. History of esophageal varices noted, however EGD from May showed no varices and no other findings of bleeding. Will send emesis sample to evaluate for occult blood N/V improving today. Patient requests trial of clear liquids Continue IV fluid rehydration Antiemetics available as needed GI consultation if no improvement (2) Acute on chronic anemia: Code(s): D64.9 - Anemia, unspecified Status: Acute Assessment and Plan: patient reports history of chronic iron deficiency anemia, followed outpatient by Oncology and received use IV iron infusions every 3 months (admits to missing last infusion). baseline hemoglobin appears to be around 8-9. Hemoglobin 6.0 on presentation. Transfused 1 unit packed RBC. Hgb increased to 6.6 Will transfuse additional 1 unit. Recheck H&H 1 hour following transfusion Call to Dr. Pisano's office for further recommendations. Awaiting return call (3) Chronic pancreatitis: Qualifiers: Pancreatitis type: alcohol induced Qualified Code(s): K86.0 - Alcohol-induced chronic pancreatitis Code(s): K86.1 - Other chronic pancreatitis Status: Chronic Assessment and Plan: Lipase is 400. No epigastric pain Trial of clear liquids Continue creon Supportive care (4) Gastroesophageal reflux disease: Code(s): K21.9 - Gastro-esophageal reflux disease without esophagitis Status: Acute Assessment and Plan: Continue Protonix q12h (5) MGUS (monoclonal gammopathy of unknown significance): Code(s): D47.2 - Monoclonal gammopathy Status: Chronic Assessment and Plan: Follows with oncology Continue with outpatient follow up Subjective Date/time seen: 12/14/21 10:17 Interval history: Date of service: 12/14/2021 Adina Jerome is a 51-year-old female with a history of iron deficiency anemia, chronic pancreatitis, esophageal varices, MGUS, seizure disorder, GERD, and remote alcohol abuse currently in recovery who is seen in follow-up for anemia as well as intractable nausea and vomiting. She states that yesterday she had 5-6 episodes of emesis and could not keep anything down. She became very weak and she became concerned when she was short of breath getting dressed. She also noted that her heart was racing and she felt lightheaded. She is feeling better now after getting IV fluids. She states today she has had only 1 episode of emesis and stated it was dark liquid, I guess you could say like coffee-grounds. she had a bowel movement 2 days ago. She denies melena or hematochezia. No hematuria. No epistaxis. She denies abdominal pain. She continues to endorse feeling weak. No shortness breath, cough, chest pain, or palpitations. Lightheadedness has resolved. Patient states she follows with a engagement lead but Mr. Most recent appointment for iron infusion as she had been feeling ill. She reports extensive GI evaluation including 3 EGDs and a capsule endoscopy within the past year. Review of Systems Review of Systems: All systems reviewed & are unremarkable except as noted in HPI and below Exam Narrative: General: well-nourished, well-appearing 51-year-old female, sitting up in bed, comfortable, NARD Neuro: awake, alert and oriented x4, speech clear, no focal neuro deficits noted HEENMT: normocephalic, atraumatic, EOMI, sclerae anicteric, moist oral mucosa Respiratory: clear to auscultation bilaterally, nonlabored breathing Cardio: regular rate, regular rhythm with S1-S2 Abdomen: nondistended, normoactive bowel sounds, soft, nontender to palpation Extremities: no edema, erythema, or tend
[2021-12-14] MEDS: LORazepam (*CRX) 0.5 MG TABLET PO ×2 (10:33→21:13)
[2021-12-14 14:57] LABS: Hemoglobin 6.7 g/dL (12.0-15.0)
[2021-12-14] MEDS: HYDROcodone/acetaminophen (*CRX) 5-325 MG TABLET 1 TAB PO (18:10)
[2021-12-14] MEDS: MELATONIN 5 MG TABLET PO (21:13)
[2021-12-14] MEDS: QUEtiapine FUMARATE 25 MG TABLET 50 MG PO (21:16)
[2021-12-15] VITALS (16 sets, daily range): BP systolic 99–132; BP diastolic 59–89; PULSE 82–100; RESP 16–20; TEMP 36.1–37.2; O2SAT 95–100
[2021-12-15] MEDS: SODIUM CHLORIDE 0.9% IV 1,000 ML 125 ML IV CONT (05:59)
[2021-12-15 06:11] LABS: Basophils Percent Auto 0.5 % (0.2-1.2); Eosinophils Percent Auto 0.7 % (0-4.4); Hematocrit 27.7 % (37.0-47.0); Hemoglobin 8.8 g/dL (12.0-15.0); Immature Granulocyte Absolute 0.07 K/mm3 (0.00-0.031); Immature Granulocyte Percent A 1.6 % (0-0.5); Immature Platelet Fraction Pct 11.7 % (0.9-11.2); Lymphocytes Percent Auto 20.8 % (18.3-44.2); Mean Corpuscular HGB Conc 31.8 g/dl (32-36); Mean Corpuscular Hemoglobin 26.2 pg (26-34); Mean Corpuscular Volume 82.4 fl (80-100); Mean Platelet Volume 11.8 fl (7.4-10.4); Monocytes Absolute Auto 0.7 K/mm3 (0.1-0.6); Monocytes Percent Auto 15.2 % (2.6-8.5); Neutrophils Absolute Auto 2.7 K/mm3 (1.3-6.7); Neutrophils Percent Auto 61.2 % (45.5-73.1); Nucleated Red Blood Cells Perc 0.9 % (0.0-0.2); Red Blood Count 3.36 M/mm3 (4.2-5.4); Red Cell Distribution Width 16.4 % (11.5-14.5); White Blood Count 4.3 K/mm3 (4.5-10.0)
[2021-12-15 06:30] LABS: Anion Gap 14 mmol/L (8-16); Blood Urea Nitrogen 15 mg/dL (7-17); Calcium 7.8 mg/dL (8.4-10.2); Carbon Dioxide 22 mmol/L (22-30); Chloride 97 mmol/L (98-107); Estimated CRCL calculation 101 ml/min; Estimated Glomerular Filt Rate > 60; Glucose 111 mg/dL (65-110); Lipase 156 U/L (23-300); Potassium 3.1 mmol/L (3.4-5.0); Sodium 133 mmol/L (137-145)
[2021-12-15 06:59] LABS: Platelet Count Result 82 k/mm3 (150-375)
[2021-12-15] MEDS: levETIRAcetam 250 MG TABLET 750 MG PO ×2 (08:11→20:47)
[2021-12-15] MEDS: CHOLECALCIFEROL 1,000 UNITS TABLET 5000 UNITS PO (08:11)
[2021-12-15] MEDS: busPIRone HCL 5 MG TABLET PO ×2 (08:12→17:34)
[2021-12-15] MEDS: LIPASE/AMYLASE/PROTEASE 12,000 UNITS CAP 2 CAP PO ×3 (08:12→17:36)
[2021-12-15] MEDS: FOLIC ACID 1 MG TABLET PO (08:12)
[2021-12-15] MEDS: DESVENLAFAXINE SUCCINATE 50 MG TAB.ER.24H PO (08:12)
[2021-12-15] MEDS: PANTOPRAZOLE 40 MG TABLET PO ×2 (08:12→20:47)
[2021-12-15] MEDS: METOPROLOL SUCCINATE EXT REL 25 MG TABCR PO (08:13)
[2021-12-15] MEDS: GABAPENTIN 300 MG CAPSULE PO ×3 (08:13→17:37)
[2021-12-15] MEDS: MULTIVITAMINS THERAPEUTIC TAB (*BKC) 1 TABLET PO (08:13)
[2021-12-15] MEDS: ONDANSETRON INJ 4 MG/2 ML VIAL IV PUSH (08:27)
[2021-12-15] MEDS: LORazepam (*CRX) 0.5 MG TABLET PO ×2 (08:27→20:47)
[2021-12-15] MEDS: SODIUM CHLORIDE 0.9% IV 1,000 ML 75 ML IV CONT (10:38)
[2021-12-15] MEDS: POTASSIUM CHLORIDE 20 MEQ TABLET 40 MEQ PO (10:38)
--- NOTE | 2021-12-15 12:03 | WPDGICN ---
Assessment and Plan Assessment and plan (1) Intractable nausea and vomiting: Code(s): R11.2 - Nausea with vomiting, unspecified Status: Acute Assessment and Plan: already feeling better after medical treatment advance diet as tolerated could be from acute on chronic pancreatitis but denies much of any abdominal pain repeat lipase normal (2) Acute on chronic anemia: Code(s): D64.9 - Anemia, unspecified Status: Acute Assessment and Plan: extensive work up including multiple scopes in the past responded to blood transfusion no overt gib follow-up with hematology (3) Acute on chronic pancreatitis: Code(s): K85.90 - Acute pancreatitis without necrosis or infection, unspecified; K86.1 - Other chronic pancreatitis Status: Acute Assessment and Plan: advance to low fat as tolerated (4) Thrombocytopenia: Code(s): D69.6 - Thrombocytopenia, unspecified Status: Acute Assessment and Plan: chronic finding GI Consult Note Consult date/time: 12/15/21 12:03 Reason for consult: n/v HPI: Adina Jerome is a 51 year old female with history of chronic Pancreatitis with hx of pancreatic pseudocyst r/t alcohol abuse (no longer drinking 04/2020) treated by her regular GI, Dr Núñez at [facility] (had multiple ERCP, also had pancreatic-colonic fistula treated with stents), anxiety, seizures, depression, had bone marrow biopsy that showed MGUS with recurrent SHERLEY followed by hematology (she is getting IV iron- can not tolerate oral- and blood transfusion as needed). She had multiple EGD's with enteroscopy (last time tattooed more distal site reached with scope in the jejunum), colonoscopy, had 2 small bowel capsule- no obvious signs of bleeding despite extensive GI work up. I met her during last hospitalization when she came with worsening anemia, push enteroscopy again negative for bleeding. She is here with intractable nausea and vomiting for the last 2 days no really much of abdominal pain (she says that this presentation is different from previous pancreatitis), denies overt gib. CT of abdomen and pelvis showed acute on chronic pancreatitis, fatty liver, also had anemia with hemoglobin 6 but responded to blood transfusion. She is already feeling better and tolerated CL diet. Lipase 400 repeat normal. Review of Systems Review of Systems: nausea and vomiting unable to keep anything down for the last 3 days Constitutional: Constitutional: Denies chills, Denies fever(s), Reports lethargy, Denies malaise, Denies night sweats and Reports weakness Eyes: Eyes: Denies change in vision ENT: Denies dysphagia, Denies vertigo, Denies dizziness and Denies odynophagia Cardiovascular: Cardiovascular: Denies chest pain, Denies syncope, Denies irregular heart rhythm, Denies lightheadedness, Denies palpitations and Denies dyspnea on exertion Respiratory: Respiratory: Denies change in phlegm color, Denies chest congestion, Denies excessive phlegm production, Denies pain on inspiration and Denies dyspnea Gastrointestinal: Gastrointestinal: Denies abdominal pain, Denies dyspepsia, Denies heartburn, Denies diarrhea, Reports nausea and Reports vomiting Genitourinary: Genitourinary: Denies dysuria Musculoskeletal: Musculoskeletal: Denies back pain, Denies joint swelling and Denies muscle weakness Integumentary/Breasts: Skin/Breast: Denies rash Neurologic: Denies focal weakness and Denies Sensory deficit (Neuro) Psychiatric: Psychiatric: Reports no additional psychiatric complaints and Reports as per HPI Endocrine: Endocrine: Reports no additional endocrine complaints and Reports as per HPI Hematologic/Lymphatic: Hematologic/Lymphatic: Reports no additional hematologic/lymphatic complaints and Reports as per HPI [facility] Past Medical History Medical History (Updated 12/15/21 @ 12:14 by Nick Yepez MD) Acute on chronic blood loss anemia Acute on chronic pancreatitis Adenomatous colon
[2021-12-15 15:03] LABS: Basophils Percent Auto 0.3 % (0.2-1.2); Eosinophils Percent Auto 0.7 % (0-4.4); Hematocrit 23.8 % (37.0-47.0); Hemoglobin 7.7 g/dL (12.0-15.0); Immature Granulocyte Absolute 0.09 K/mm3 (0.00-0.031); Immature Granulocyte Percent A 1.5 % (0-0.5); Lymphocytes Absolute Auto 0.71 K/mm3 (0.9-3.2); Lymphocytes Percent Auto 11.9 % (18.3-44.2); Mean Corpuscular HGB Conc 32.4 g/dl (32-36); Mean Corpuscular Hemoglobin 26.5 pg (26-34); Mean Corpuscular Volume 81.8 fl (80-100); Mean Platelet Volume 10.7 fl (7.4-10.4); Monocytes Absolute Auto 0.7 K/mm3 (0.1-0.6); Neutrophils Absolute Auto 4.4 K/mm3 (1.3-6.7); Neutrophils Percent Auto 73.6 % (45.5-73.1); Nucleated Red Blood Cells Absolute Auto 0.1 K/mm3 (0.0-0.012); Nucleated Red Blood Cells Perc 0.8 % (0.0-0.2); Platelet Count Result 92 k/mm3 (150-375); Red Blood Count 2.91 M/mm3 (4.2-5.4); Red Cell Distribution Width 16.2 % (11.5-14.5)
[2021-12-15 15:26] LABS: Anisocytosis 1+ (NORMAL); Ovalocytes 1+ (NORMAL); Platelet Estimate Decreased (Adequate)
--- NOTE | 2021-12-15 15:40 | PM.IMPN ---
Progress Note: A&P Assessment and Plan (1) Intractable nausea and vomiting: Code(s): R11.2 - Nausea with vomiting, unspecified Status: Acute Assessment and Plan: Etiology unclear. Patient reports this is a frequent issue and relates this to chronic pancreatitis Reports dark emesis. History of esophageal varices noted, however EGD from May showed no varices and no other findings of bleeding. Gastric occult blood test ordered, however patient has had no further episodes of emesis, therefore doubt acute bleeding Emesis resolved. Nausea is improved Patient tolerating full liquid diet. Will advance to bland diet for dinner Will discontinue IV fluids as patient is tolerating adequate p.o. intake Antiemetics available as needed Appreciate GI consultation (2) Acute on chronic anemia: Code(s): D64.9 - Anemia, unspecified Status: Acute Assessment and Plan: Patient reports history of chronic iron deficiency anemia, followed outpatient by Oncology and received use IV iron infusions every 3 months (admits to missing last infusion). baseline hemoglobin appears to be around 8-9. Hemoglobin 6.0 on presentation. Transfused a total of 4 units packed RBC with stabilization of Hgb Discussed with patients tariff inspector Dr. Pisano's office. Recommends transfuse to Hgb 8.0 H&H declined from 8.8 to 7.7 today. Will transfuse 1 additional unit and recheck Hgb following transfusion Hopeful discharge tomorrow if Hgb is stable at 8.0 She needs prompt outpatient follow up with hematology to obtain repeat labs (3) Chronic pancreatitis: Qualifiers: Pancreatitis type: alcohol induced Qualified Code(s): K86.0 - Alcohol-induced chronic pancreatitis Code(s): K86.1 - Other chronic pancreatitis Status: Chronic Assessment and Plan: Lipase 400 on presentation. No epigastric pain Lipase normalized today Continue creon Supportive care (4) Gastroesophageal reflux disease: Code(s): K21.9 - Gastro-esophageal reflux disease without esophagitis Status: Acute Assessment and Plan: Continue Protonix q12h (5) MGUS (monoclonal gammopathy of unknown significance): Code(s): D47.2 - Monoclonal gammopathy Status: Chronic Assessment and Plan: Follows with oncology Continue with outpatient follow up Subjective Date/time seen: 12/15/21 15:40 Interval history: Date of service: 12/15/2021 Adina Jerome is a 51-year-old female with a history of iron deficiency anemia, chronic pancreatitis, esophageal varices, MGUS, seizure disorder, GERD, and remote alcohol abuse currently in recovery who is seen in follow-up for anemia as well as nausea and vomiting. She is feeling better today. She has been able to tolerate clear and full liquids. No more episodes of emesis. She does have some nausea which she states is very typical for her. Denies abdominal pain. No episodes of bleeding. Last bowel movement was 2 days ago. Denies urinary symptoms. No fevers or chills. Denies shortness breath, cough, chest pain Review of Systems Review of Systems: All systems reviewed & are unremarkable except as noted in HPI and below Exam Narrative: General: well-nourished, well-appearing 51-year-old female, sitting up in bed, comfortable, NARD Neuro: awake, alert and oriented x4, speech clear, no focal neuro deficits noted HEENMT: normocephalic, atraumatic, EOMI, sclerae anicteric, moist oral mucosa Respiratory: clear to auscultation bilaterally, nonlabored breathing Cardio: regular rate, regular rhythm with S1-S2 Abdomen: nondistended, normoactive bowel sounds, soft, nontender to palpation Extremities: no edema, erythema, or tenderness to palpation Skin: no rashes or lesions, warm and dry Psych: appropriate mood and affect, judgment and insight intact Objective Data Vital Signs Vital Signs: Vital Signs - 24 hr 12/14/21 21:42
[2021-12-15] MEDS: SODIUM CHLORIDE 0.9% IV 250 ML 30 ML IV CONT (17:33)
[2021-12-15] MEDS: QUEtiapine FUMARATE 25 MG TABLET 50 MG PO (20:47)
[2021-12-15] MEDS: MELATONIN 5 MG TABLET PO (20:48)
[2021-12-16 05:46] LABS: Basophils Percent Auto 0.4 % (0.2-1.2); Eosinophils Absolute Auto 0.1 K/mm3 (0-0.3); Eosinophils Percent Auto 1.4 % (0-4.4); Hematocrit 26.7 % (37.0-47.0); Hemoglobin 8.3 g/dL (12.0-15.0); Immature Granulocyte Absolute 0.06 K/mm3 (0.00-0.031); Immature Granulocyte Percent A 1.2 % (0-0.5); Immature Platelet Fraction Pct 10.9 % (0.9-11.2); Lymphocytes Absolute Auto 0.74 K/mm3 (0.9-3.2); Lymphocytes Percent Auto 14.5 % (18.3-44.2); Mean Corpuscular HGB Conc 31.1 g/dl (32-36); Mean Corpuscular Hemoglobin 26.4 pg (26-34); Mean Platelet Volume 12.3 fl (7.4-10.4); Monocytes Absolute Auto 0.6 K/mm3 (0.1-0.6); Monocytes Percent Auto 10.8 % (2.6-8.5); Neutrophils Absolute Auto 3.7 K/mm3 (1.3-6.7); Neutrophils Percent Auto 71.7 % (45.5-73.1); Nucleated Red Blood Cells Absolute Auto 0.1 K/mm3 (0.0-0.012); Platelet Count Result 88 k/mm3 (150-375); Red Blood Count 3.14 M/mm3 (4.2-5.4); Red Cell Distribution Width 16.5 % (11.5-14.5); White Blood Count 5.1 K/mm3 (4.5-10.0)
[2021-12-16 05:49] VITALS: BP 100/60; PULSE 78; RESP 16; TEMP 36.3; O2SAT 98
[2021-12-16 06:01] LABS: Anion Gap 8 mmol/L (8-16); Blood Urea Nitrogen 13 mg/dL (7-17); Calcium 7.7 mg/dL (8.4-10.2); Carbon Dioxide 22 mmol/L (22-30); Chloride 103 mmol/L (98-107); Estimated CRCL calculation 101 ml/min; Estimated Glomerular Filt Rate > 60; Glucose 100 mg/dL (65-110); Potassium 3.3 mmol/L (3.4-5.0); Sodium 133 mmol/L (137-145)
[2021-12-16 08:00] VITALS: PULSE 78
[2021-12-16] MEDS: FOLIC ACID 1 MG TABLET PO (08:00)
[2021-12-16] MEDS: METOPROLOL SUCCINATE EXT REL 25 MG TABCR PO (08:00)
[2021-12-16] MEDS: levETIRAcetam 250 MG TABLET 750 MG PO (08:00)
[2021-12-16] MEDS: LIPASE/AMYLASE/PROTEASE 12,000 UNITS CAP 2 CAP PO (08:00)
[2021-12-16] MEDS: MULTIVITAMINS THERAPEUTIC TAB (*BKC) 1 TABLET PO (08:00)
[2021-12-16] MEDS: GABAPENTIN 300 MG CAPSULE PO (08:00)
[2021-12-16] MEDS: busPIRone HCL 5 MG TABLET PO (08:00)
[2021-12-16] MEDS: DESVENLAFAXINE SUCCINATE 50 MG TAB.ER.24H PO (08:00)
[2021-12-16] MEDS: CHOLECALCIFEROL 1,000 UNITS TABLET 5000 UNITS PO (08:01)
[2021-12-16] MEDS: PANTOPRAZOLE 40 MG TABLET PO (08:01)
--- NOTE | 2021-12-16 09:49 | PM.DS ---
DS: Admitting Diagnosis Discharge Date 12/16/2021 1126 Admitting Diagnosis Intractable nausea and vomiting Chronic pancreatitis DS: Discharge Diagnosis Discharge Diagnosis (1) Intractable nausea and vomiting: Code(s): R11.2 - Nausea with vomiting, unspecified Status: Acute (2) Acute on chronic anemia: Code(s): D64.9 - Anemia, unspecified Status: Acute (3) Chronic pancreatitis: Qualifiers: Pancreatitis type: alcohol induced Qualified Code(s): K86.0 - Alcohol-induced chronic pancreatitis Code(s): K86.1 - Other chronic pancreatitis Status: Chronic Assessment and Plan: acute on chronic pancreatitis (4) Gastroesophageal reflux disease: Code(s): K21.9 - Gastro-esophageal reflux disease without esophagitis Status: Chronic DS: Summary Hospital Course Reason for hospitalization: nausea and vomiting. Hospital Course: Adina Jerome is a 51-year-old female with past medical history significant for alcohol abuse disorder now in remission, chronic pancreatitis, pancreatic pseudocyst, chronic iron deficiency anemia, generalized anxiety disorder, esophageal varices, gastroesophageal reflux disease, and monoclonal gammopathy of uncertain significance. She presented to the emergency room due to intractable nausea and vomiting for 2 days prior to admission. This progressively worsened and she had not been able to eat or keep anything down. She denied abdominal pain, diarrhea, fevers, rigors, chills, syncope, or near syncope. No hematemesis, melena, or bright red blood per rectum. Her preliminary workup was significant for CT of abdomen and pelvis with no acute changes. Lab work showed hemoglobin 6, hematocrit 22, sodium 132, chloride? 88, bicarb 19, anion gap of 24 and lipase 400. In the emergency room, she was transfuse 1 unit of packed red blood cells. The patient was admitted for further evaluation of intractable nausea and vomiting, as well as acute on chronic anemia. GI was consulted and her diet was slowly advanced. She was noted to have had prior EGD in May of this year without evidence of acute bleeding or esophageal varices. She was treated with pain control and IV fluids. Her intractable N/V was thought to be secondary to acute on chronic pancreatitis. Her H/H remained low <8. Her hemotologist, Dr. Pisano, was consulted and recommended keeping the patient's hgb >8. She received a total of 5 units PRBC and hgb was 8.3 on the day of discharge. No s/s GI or acute bleeding were noted. Her nausea improved and her diet was advanced. She was discharged home in stable condition with follow up with PCP and [employer] in 1 week. She was counseled on low fat diet and alcohol abstinence. Status at Discharge Cognitive/behavioral status at discharge: Alert and oriented x4. pleasant Functional status at discharge: independent ambulation Overall status at discharge: patient is back to baseline Time Spent with Patient Time attestation: Total time spent providing and/or coordinating discharge services: Time spent: Greater than 30 minutes Exam Narrative: General: well-nourished, well-appearing female, no acute distress. Neuro: awake, alert and oriented x4, speech clear, no focal neuro deficits noted HEENMT: normocephalic, pupils equal and round, sclerae anicteric, moist oral mucosa Respiratory: clear to auscultation bilaterally, nonlabored breathing Cardio: regular rate, regular rhythm with S1-S2. No murmur, gallop or rubs. Abdomen: nondistended, normoactive bowel sounds, soft, nontender to palpation Extremities: no edema, erythema, or tenderness to palpation Skin: no rashes or lesions, warm and dry Psych: neutral mood and affect, pleasant DS: Data Data Completed and Pending Labs on day of discharge: Labs from last 24 hours 12/16/21 12/16/21 12/15/21 05:33 05:33 14:49 WBC 5.1 6.0 RBC 3.14 L 2.91 L Hgb 8.3 L 7.7 L Hct 26.7 L 23.
[2021-12-16] MEDS: LORazepam (*CRX) 0.5 MG TABLET PO (11:12)
--- NOTE | 2021-12-16 12:54 | WPDGIPROGNO ---
Progress Note: A&P Assessment and Plan (1) Intractable nausea and vomiting: Code(s): R11.2 - Nausea with vomiting, unspecified Status: Acute Assessment and Plan: resolved, tolerating diet he can follow-up with her regular GI doctor as outpatient (2) Acute on chronic anemia: Code(s): D64.9 - Anemia, unspecified Status: Acute Assessment and Plan: no overt gib recurrent problem and also seeing hematology as outpatient (3) Acute on chronic pancreatitis: Code(s): K85.90 - Acute pancreatitis without necrosis or infection, unspecified; K86.1 - Other chronic pancreatitis Status: Acute Assessment and Plan: no abdominal pain at this point (4) MGUS (monoclonal gammopathy of unknown significance): Code(s): D47.2 - Monoclonal gammopathy Status: Chronic Subjective Date/time seen: 12/16/21 12:54 Interval history: she was able to tolerate solid food, doing ok and she is going home Review of Systems Review of Systems: All systems reviewed & are unremarkable except as noted in HPI and below Exam Const: General: comfortable and no acute distress HENMT: General nose exam: Normal nares present Eyes: General: appearance normal, both eyes and all related structures Neck: Neck: no JVD Resp: Auscultation: clear to auscultation bilaterally Cardio: Rate: regular rate Rhythm: regular rhythm GI: Inspection: non-distended GI Palp: Yes Soft to palpation and No Tenderness to palpation present (GI) Auscultation: normal bowel sounds Skin: General skin exam: normal color Neuro: Speech: normal speech Extrem: General: normal to inspection Psych: Mental Status: mental status grossly normal Objective Data Vital Signs Vital Signs: Vital Signs - 24 hr 12/15/21 14:00 12/15/21 17:30 12/15/21 17:45 Temperature 97.0 F L 97.6 F 98 F Pulse Rate 92 99 91 Respiratory Rate 18 16 16 Blood Pressure 118/81 132/89 113/76 Pulse Oximetry 98 100 98 Oxygen Delivery 12/15/21 18:58 12/15/21 18:45 12/15/21 19:45 Temperature 98.3 F 98.3 F Pulse Rate 92 92 85 Respiratory Rate 20 20 16 Blood Pressure 111/72 111/72 115/84 Pulse Oximetry 100 100 99 Oxygen Delivery 12/15/21 20:00 12/15/21 19:45 12/15/21 20:45 Temperature 97.8 F 97.8 F Pulse Rate 92 92 Respiratory Rate 16 16 Blood Pressure 118/72 118/72 Pulse Oximetry 98 98 Oxygen Delivery Room Air 12/16/21 05:49 12/16/21 08:00 12/16/21 08:00 Temperature 97.3 F L Pulse Rate 78 78 Respiratory Rate 16 Blood Pressure 100/60 Pulse Oximetry 98 Oxygen Delivery Room Air Intake/Output Intake/Output: Intake & Output 12/13/21 12/14/21 12/15/21 12/16/21 23:59 23:59 23:59 23:59 Intake Total 1350 2840 5350 540 Output Total 805 1550 Balance 1350 2035 3800 540 Meds/Results Medications: Active Medications Generic Name Dose Route Start Last Admin Trade Name Freq PRN Reason Stop Dose Admin Acetaminophen 650 mg 12/14/21 15:21 Acetaminophen 325 Mg Tablet PO Q6H PRN Pain Rated 5 or Less Hydrocodone Bitart/Acetaminophen 1 tab 12/14/21 15:24 12/14/21 18:10 Hydrocodone/Acetaminophen (*Crx) 5-325 Mg Tablet PO 1 tab Q6H PRN Administration Pain Rated 6 or Greater Lipase/Protease/Amylase 2 cap 12/14/21 08:00 12/16/21 08:00 Lipase/Amylase/Protease 12,000 Units Cap PO 2 cap TIDWM AMELIE Administration Buspirone HCl 5 mg 12/14/21 09:00 12/16/21 08:00 Buspirone Hcl 5 Mg Tablet PO 5 mg BID AMELIE Administration Desvenlafaxine Succinate 50 mg 12/14/21 09:00 12/16/21 08:00 Desvenlafaxine Succinate 50 Mg Tab.Er.24h PO 50 mg QAM AMELIE Administration Folic Acid 1 mg 12/14/21 09:00 12/16/21 08:00 Folic Acid 1 Mg Tablet PO 1 mg DAILY AMELIE Administration Gabapentin 300 mg 12/14/21 09:00 12/16/21 08:00 Gabapentin 300 Mg Capsule PO 300 mg TID AMELIE Administration Levetiracetam 750 mg 12/14/21 09:00 12/16/21 08:
== END 2021-12-16 12:30 | disposition home or self-care (01) ==
LOC: ANHED 12-14 00:59 → ANH3MEDSUR 12-14 01:36
PROVIDERS: Emergency Medicine; Physician Assistant; Admitting Provider Internal Medicine; Emergency Provider Preventive Medicine Aerospace Medicine; PCP Family Medicine; Visit Provider Nurse Practitioner Family
DX: R11.2 Nausea with vomiting, unspecified (principal); K86.0 Alcohol-induced chronic pancreatitis; D69.6 Thrombocytopenia, unspecified; D47.2 Monoclonal gammopathy; R10.13 Epigastric pain; D50.9 Iron deficiency anemia, unspecified; I10 Essential (primary) hypertension; K21.9 Gastro-esophageal reflux disease without esophagitis; F32.A Depression, unspecified; G40.909 Epilepsy, unspecified, not intractable, without status epilepticus; R00.0 Tachycardia, unspecified; F10.21 Alcohol dependence, in remission; K86.3 Pseudocyst of pancreas; F41.1 Generalized anxiety disorder
CPT/HCPCS: 36415; 36430; 74176; 80048; 80053; 81001; 83605; 83690; 85014; 85018; 85025; 85055; 86850; 86900; 86901; 86920; 93005; 96361; 96372; 96374; 96375; 99285; A9270; G0378; J0780; J1170; J1650; J2270; J2405; J7030; J7050; P9016

== ENCOUNTER 2021-12-23 14:20 | Inpatient (IN) | payer MEDICARE, BC, SELFPAY ==
[2021-12-23] VITALS (21 sets, daily range): BP systolic 83–130; BP diastolic 53–90; PULSE 79–129; RESP 13–28; TEMP 36.6–37.2; O2SAT 95–100
--- NOTE | ~2021-12-23 | XR_ITS ---
EXAMINATION: XR chest 1V portable DATE: 12/23/2021 14:50 INDICATION: Shortness of breath. TECHNIQUE: A single frontal view of the chest was obtained. COMPARISON: Chest one view 07/08/2021, CT abdomen and pelvis 12/14/2021 FINDINGS: The chest demonstrates clear lungs without pneumonia, pleural effusion, or pneumothorax. Th e heart size is normal. IMPRESSION: 1. No acute cardiopulmonary disease. Reviewed, dictated and finalized at location A.
--- NOTE | ~2021-12-23 | XR_ITS ---
EXAMINATION: XR small bowel follow through DATE: 12/25/2021 10:58 INDICATION: Recurrent anemia. TECHNIQUE: Oral contrast was administered, and a time course of radiographs of the abdomen was obtain ed. Fluoroscopy of the small bowel was performed. Fluoroscopy exposure time was 0.2 minutes. The tota l number of images was 15. COMPARISON: CT abdomen and pelvis 12/14/2021 FINDINGS: There is no abnormal mass or stricture. There are no dilated loops of bowel. The terminal ileum was n ot well visualized. Transit time from the stomach to proximal colon was approximately 1.5 hours. IMPRESSION: 1. Normal small bowel series. Reviewed, dictated and finalized at location A.
--- NOTE | 2021-12-23 14:33 | ECG_ITS ---
Measurements Intervals [place] Rate: 136 P: 60 IN: 108 QRS: 40 QRSD: 82 T: 10 QT: 304 QTc: 458 Interpretive Statements SINUS TACHYCARDIA WITH SHORT IN INTERVAL BORDERLINE ST-T WAVE ABNORMALITY- ANTEROLAT/INF LEADS BASELINE ARTIFACT- I, II ABNORMAL ECG COMPARED TO ECG 12/13/2021 18:58:58 NO SIGNIFICANT CHANGES Electronically Signed On 12-23-2021 21:25:22 CDT by Tyler Lord D.O.
[2021-12-23 14:50] LABS: Basophils Percent Auto 0.1 % (0.2-1.2); Eosinophils Absolute Auto 0.1 K/mm3 (0-0.3); Eosinophils Percent Auto 0.8 % (0-4.4); Immature Granulocyte Percent A 1.4 % (0-0.5); Lymphocytes Absolute Auto 1.49 K/mm3 (0.9-3.2); Lymphocytes Percent Auto 20.6 % (18.3-44.2); Mean Corpuscular Hemoglobin 24.8 pg (26-34); Mean Corpuscular Volume 88.8 fl (80-100); Mean Platelet Volume 11.4 fl (7.4-10.4); Monocytes Absolute Auto 1.1 K/mm3 (0.1-0.6); Monocytes Percent Auto 14.9 % (2.6-8.5); Neutrophils Absolute Auto 4.5 K/mm3 (1.3-6.7); Neutrophils Percent Auto 62.2 % (45.5-73.1); Nucleated Red Blood Cells Absolute Auto 0.1 K/mm3 (0.0-0.012); Nucleated Red Blood Cells Perc 0.8 % (0.0-0.2); Platelet Count Result 366 k/mm3 (150-375); Red Blood Count 1.61 M/mm3 (4.2-5.4); White Blood Count 7.2 K/mm3 (4.5-10.0)
[2021-12-23 15:03] LABS: Alanine Aminotransferase 32 U/L (6-35); Albumin Level 3.3 g/dL (3.5-5.1); Alkaline Phosphatase 56 U/L (38-126); Anion Gap 17 mmol/L (8-16); Aspartate Amino Transferase 37 U/L (14-36); Bilirubin,Total 0.5 mg/dL (0.2-1.3); Blood Urea Nitrogen 13 mg/dL (7-17); CRP < 0.5 mg/dL (<1.0); Calcium 7.6 mg/dL (8.4-10.2); Carbon Dioxide 19 mmol/L (22-30); Chloride 96 mmol/L (98-107); Estimated CRCL calculation 99 ml/min; Estimated Glomerular Filt Rate > 60; Glucose 131 mg/dL (65-110); Lipase 100 U/L (23-300); Potassium 3.9 mmol/L (3.4-5.0); Sodium 132 mmol/L (137-145)
[2021-12-23] MEDS: SODIUM CHLORIDE 0.9% IV 1,000 ML 999 ML IV CONT (15:04)
[2021-12-23] MEDS: PANTOPRAZOLE SODIUM IV 40 MG VIAL IV PUSH ×2 (15:05→21:48)
[2021-12-23 15:12] LABS: Troponin I < 0.012 ng/mL (0.000-0.034)
--- NOTE | 2021-12-23 15:15 | ED.WEAKNESS ---
HPI - Weakness General Chief complaint: Weakness Stated complaint: n/v, vomiting Time Seen by Provider: 12/23/21 14:27 Source: patient, EMS and RN notes reviewed Mode of arrival: EMS Limitations: no limitations History of Present Illness HPI Narrative: This is a 51 year old female with history of chronic pancreatitis, alcohol abuse, gastritis, esophageal varices who presents for evaluation of weakness, nausea, vomiting, and shortness of breath. Patient was discharged from hospitalist 1 week ago after an evaluation of nausea and vomiting. During that visit was given multiple transfusions of blood and evaluated by edward. She states she was doing well until 2 days ago when she developed nausea and vomiting. She states her emesis looks like cola but denies dorota blood or clots. She had a bowel movement yesterday that was black and tarry. She called EMS today due to weakness and shortness of breath, but she denies chest pain. She takes protonix twice day. She states she has not drank alcohol in 2 years. She had an EGD performed in May 2021 and it showed gastritis without esophageal varices. Related Data Home Medications Medication Instructions Recorded Confirmed gabapentin 300 mg capsule 300 mg PO TID 08/26/20 12/14/21 desvenlafaxine 50 mg 50 mg PO QAM 12/04/20 12/14/21 tablet,extended release 24 hr [id number] 1 cap PO TID 12/04/20 12/14/21 24,000-76,000-120,000 unit capsule,delayed rel (Creon) lorazepam 0.5 mg tablet 0.5 mg PO TID PRN Anxiety 12/04/20 12/14/21 ondansetron 4 mg disintegrating 4 mg PO Q6H PRN Nausea 12/04/20 12/14/21 tablet cholecalciferol (vitamin D3) 125 125 mcg PO QAM 12/05/20 12/14/21 mcg (5,000 unit) capsule folic acid 1 mg tablet 1 mg PO DAILY 12/05/20 12/14/21 multivitamin (Daily Multi-Vitamin 1 tablet PO DAILY 12/05/20 12/14/21 tablet) quetiapine 50 mg tablet 50 mg PO HS 01/26/21 12/14/21 buspirone 5 mg tablet 5 mg PO BID 12/14/21 12/14/21 melatonin 5 mg tablet 5 mg PO QHS 12/14/21 12/14/21 metoprolol succinate 25 mg 25 mg PO QAM 12/14/21 12/14/21 tablet,extended release 24 hr Allergies Allergy/AdvReac Type Severity Reaction Status Date / Time No Known Allergies Allergy Verified 12/13/21 18:46 Review of Systems Review of Systems: All systems reviewed & are unremarkable except as noted in HPI and below Constitutional: Constitutional: Denies chills, Reports fatigue and Denies fever(s) ENT: Denies nasal congestion Cardiovascular: Cardiovascular: Denies chest pain Respiratory: Respiratory: Denies cough and Reports dyspnea Gastrointestinal: Gastrointestinal: Denies abdominal pain, Reports nausea and Reports vomiting PMFSH Past Medical History Medical History Acute on chronic blood loss anemia Acute on chronic pancreatitis Adenomatous colon polyp Anxiety Biliary stricture Chronic pancreatitis With history of pseudocyst. Coffee ground emesis Depression Esophageal varices Essential (primary) hypertension Gastroesophageal reflux disease History of alcohol abuse Sober since 2018. Inflammatory arthritis Iron deficiency anemia Monoclonal gammopathy of unknown significance Poorly documented. Occult GI bleeding Attributed to AVMs. Portal vein thrombosis Seizure disorder Surgical History Surgical History History of colonoscopy with polypectomy History of lumpectomy of right breast Presence of pancreatic duct stent Family History Family History Father Hypertension Cerebrovascular accident Congestive heart failure Mother Hypertension Rheumatoid arthritis Sibling Hypertension Anxiety Social History Social History (Updated 12/23/21 @ 16:28 by Vy Navarro NP) Social History: Surrogate decision maker: Patricia Jerome, mother.no children Code statu
[2021-12-23 15:21] LABS: Hematocrit 14.3 % (37.0-47.0)
[2021-12-23 15:22] LABS: Hypochromasia 2+ (NORMAL); Macrocytosis 2+ (NORMAL); Platelet Estimate Adequate (Adequate); Polychromasia 1+ (NORMAL)
[2021-12-23 15:23] LABS: Anisocytosis 1+ (NORMAL); Ovalocytes 1+ (NORMAL); Poikilocytosis 2+ (NORMAL)
[2021-12-23 15:30] LABS: Lactic Acid Reflex 2.5 mmol/L (0.7-2.0)
[2021-12-23 15:31] LABS: Appearance Urine Clear (Clear); Bilirubin Urine 1+ (Negative); Blood Urine Negative (Negative); Color Urine Yellow (Yellow); Glucose Urine UA Negative (Negative); Ketones Urine 1+ mg/dL (Negative); Leukocyte Esterase Ur Negative LEU/UL (Negative); Nitrate Urine Negative (Negative); Protein Urine Negative (Negative)
[2021-12-23 15:54] LABS: RBC Urine 0-2 /hpf (0-2); Squamous Epithelial Cell Urine Rare /hpf (Few); WBC Urine 0-3 /hpf
[2021-12-23 15:58] LABS: Add Urine Microscopic? YES
[2021-12-23 16:04] LABS: NT Pro B Type Natriuretic Pept 233 pg/mL (5-100)
[2021-12-23] MEDS: OCTREOTIDE ACETATE 50 MCG/ML VIAL IV PUSH (16:15)
[2021-12-23] MEDS: SODIUM CHLORIDE 0.9% IV 1,000 ML 125 ML IV CONT (16:16)
--- NOTE | 2021-12-23 16:24 | PM.IMHP ---
H&P: HPI History of Present Illness Date/Time: 12/23/21 16:24 Chief Complaint: Nausea vomiting Narrative: This is a 51-year-old female patient who has a history of chronic pancreatitis, alcohol abuse, gastritis, esophageal varices with multiple EGDs and colonoscopies. The patient has had multiple transfusions in the past and had seen Dr. Hallman. The patient was recently discharged from here 1 week ago. The patient stated that she has been feeling dizzy and lightheaded and feels as if she is going to pass out. She had a bowel movement yesterday that was black and tarry she called EMS today due to the weakness in the shortness of breath. She denied any chest pain. She takes Protonix twice a day. Her EGD on May 2021 showed gastritis without esophageal varices. The patient denies any current alcohol use. Patient's H&H was initially 4.0 and 14.3. Repeat was 3.4 and 11.7. Patient has been typed and cross match for 4 units of packed red blood cells. Dr. Hallman has been consulted. Also Dr. Delonte Jacobo has been consulted as science faculty member to place the patient in ICU.The patient was started on IV fluids, octreotide, Protonix, and Zofran in the emergency room. The patient is being admitted to inpatient status on the date of service of 12/23/2021. Review of Systems Review of Systems: See HPI All systems reviewed & are unremarkable except as noted in HPI and below Constitutional: Constitutional: Reports as per HPI and Reports no additional constitutional complaints Eyes: Eyes: Reports as per HPI and Reports no additional eye complaints ENT: Reports system reviewed and no additional complaints, except as documented and Reports Normal hearing present Cardiovascular: Cardiovascular: Reports no additional cardiovascular complaints Respiratory: Respiratory: Reports no additional respiratory complaints and Reports no additional respiratory complaints Gastrointestinal: Gastrointestinal: Reports as per HPI and Reports no additional gastrointestinal complaints Musculoskeletal: Musculoskeletal: Reports no additional musculoskeletal complaints Integumentary/Breasts: Skin/Breast: Reports system reviewed and no additional complaints, except as docu and Reports as per HPI Neurologic: Reports system reviewed and no additional complaints, except as documented, Reports as per HPI and Reports Normal hearing present Psychiatric: Psychiatric: Reports no additional psychiatric complaints and Reports as per HPI Endocrine: Endocrine: Reports no additional endocrine complaints Hematologic/Lymphatic: Hematologic/Lymphatic: Reports no additional hematologic/lymphatic complaints Allergic/Immunologic: Allergic/Immunologic: Reports no additional allergic/immunologic complaints [facility] Past Medical History Medical History (Updated 12/23/21 @ 18:20 by Vy Navarro NP) Acute on chronic blood loss anemia Acute on chronic pancreatitis Adenomatous colon polyp Anemia Anxiety Biliary stricture Chronic pancreatitis With history of pseudocyst. Coffee ground emesis Depression Esophageal varices Essential (primary) hypertension Gastroesophageal reflux disease History of alcohol abuse Sober since 2018. Inflammatory arthritis Iron deficiency anemia Monoclonal gammopathy of unknown significance Poorly documented. Occult GI bleeding Attributed to AVMs. Portal vein thrombosis Seizure disorder Seizure disorder Surgical History Surgical History History of colonoscopy with polypectomy History of lumpectomy of right breast Presence of pancreatic duct stent Family History Family History Father Hypertension Cerebrovascular accident Congestive heart failure Mother Hypertension Rheumatoid arthritis Sibling Hypertension Anxiety Social History Social History (Updated 12/23/21 @ 18:11 by Vy Navarro NP) Social History: S
[2021-12-23 16:42] LABS: Hemoglobin 3.4 g/dL (12.0-15.0)
[2021-12-23 16:43] LABS: Hematocrit 11.7 % (37.0-47.0)
[2021-12-23 16:58] LABS: INR 1.2; Prothrombin Time 14.3 Seconds (11.1-14.7)
[2021-12-23] MEDS: SODIUM CHLORIDE 0.9% IV 250 ML 30 ML IV CONT (17:28)
[2021-12-23] MEDS: TUBING, BLOOD SET 1 EACH XX (17:28)
--- NOTE | 2021-12-23 17:43 | ADMGEN ---
This patient, Adina Jerome, was admitted to ICU 8 at 1741. Arrived via stretcher with RN at transport. Blood products hanging when patient arrived. Patient/family oriented to hospital policies and general routines including ID bracelet, bed and alarms, visiting hours, pain management, procedures, bathroom and other care routines, personal items, smoking policy, room service/diet, and visiting hours. Information on how to activate the Rapid Response Team has been discussed. Patient/Family are encouraged to report perceived risks to care and to ask questions if they do not understand what they are told or what they should do.
[2021-12-23 18:12] LABS: Reflex Lactic Acid Yes or No Add Lactic
[2021-12-23] MEDS: MORPHINE SULFATE (*CRX) 2 MG/ML INJ IV PUSH (18:32)
[2021-12-23 18:50] LABS: Lactic Acid 0.6 mmol/L (0.7-2.0)
[2021-12-23] MEDS: levETIRAcetam 250 MG TABLET 750 MG PO (21:49)
[2021-12-23] MEDS: QUEtiapine FUMARATE 25 MG TABLET 50 MG PO (21:49)
[2021-12-23] MEDS: LORazepam (*CRX) 0.5 MG TABLET PO (21:50)
[2021-12-23] MEDS: MELATONIN 5 MG TABLET PO (22:16)
[2021-12-24] VITALS (22 sets, daily range): BP systolic 97–138; BP diastolic 56–93; PULSE 61–106; RESP 18–26; TEMP 36.5–37.1; O2SAT 96–99; BMI 30.4
[2021-12-24 04:10] LABS: Basophils Percent Auto 0.5 % (0.2-1.2); Eosinophils Absolute Auto 0.1 K/mm3 (0-0.3); Hematocrit 28.6 % (37.0-47.0); Immature Granulocyte Absolute 0.13 K/mm3 (0.00-0.031); Immature Granulocyte Percent A 2.3 % (0-0.5); Lymphocytes Absolute Auto 0.79 K/mm3 (0.9-3.2); Lymphocytes Percent Auto 13.7 % (18.3-44.2); Mean Corpuscular HGB Conc 31.5 g/dl (32-36); Mean Corpuscular Hemoglobin 26.3 pg (26-34); Mean Corpuscular Volume 83.6 fl (80-100); Mean Platelet Volume 10.9 fl (7.4-10.4); Monocytes Absolute Auto 0.9 K/mm3 (0.1-0.6); Neutrophils Absolute Auto 3.9 K/mm3 (1.3-6.7); Neutrophils Percent Auto 67.5 % (45.5-73.1); Nucleated Red Blood Cells Absolute Auto 0.1 K/mm3 (0.0-0.012); Nucleated Red Blood Cells Perc 1.9 % (0.0-0.2); Platelet Count Result 167 k/mm3 (150-375); Red Blood Count 3.42 M/mm3 (4.2-5.4); Red Cell Distribution Width 18.9 % (11.5-14.5); White Blood Count 5.8 K/mm3 (4.5-10.0)
[2021-12-24 04:20] LABS: Alanine Aminotransferase 31 U/L (6-35); Albumin Level 2.8 g/dL (3.5-5.1); Alkaline Phosphatase 51 U/L (38-126); Anion Gap 10 mmol/L (8-16); Aspartate Amino Transferase 33 U/L (14-36); Bilirubin,Total 1.6 mg/dL (0.2-1.3); Blood Urea Nitrogen 12 mg/dL (7-17); Calcium 6.9 mg/dL (8.4-10.2); Carbon Dioxide 20 mmol/L (22-30); Chloride 103 mmol/L (98-107); Estimated CRCL calculation 99 ml/min; Estimated Glomerular Filt Rate > 60; Glucose 118 mg/dL (65-110); Potassium 3.5 mmol/L (3.4-5.0); Sodium 133 mmol/L (137-145)
[2021-12-24] MEDS: LORazepam (*CRX) 0.5 MG TABLET PO ×3 (05:06→20:21)
[2021-12-24] MEDS: DESVENLAFAXINE SUCCINATE 50 MG TAB.ER.24H 100 MG PO (08:24)
[2021-12-24] MEDS: GABAPENTIN 300 MG CAPSULE PO ×3 (08:24→16:17)
[2021-12-24] MEDS: busPIRone HCL 10 MG TABLET PO ×2 (08:24→16:17)
[2021-12-24] MEDS: levETIRAcetam 250 MG TABLET 750 MG PO ×2 (08:24→16:17)
[2021-12-24] MEDS: LIPASE/AMYLASE/PROTEASE 12,000 UNITS CAP 2 CAP PO ×3 (08:25→16:17)
[2021-12-24] MEDS: PANTOPRAZOLE SODIUM IV 40 MG VIAL IV PUSH ×2 (08:25→20:19)
[2021-12-24] MEDS: FOLIC ACID 1 MG TABLET PO (08:25)
[2021-12-24 08:32] LABS: Hematocrit 27.1 % (37.0-47.0); Hemoglobin 8.9 g/dL (12.0-15.0)
--- NOTE | 2021-12-24 08:44 | PM.IMPN ---
Progress Note: A&P Assessment and Plan (1) Acute on chronic anemia: Code(s): D64.9 - Anemia, unspecified Status: Inactive Assessment and Plan: Patient with chronic anemia but presents with severe acute anemia. Hemoglobin was 8.3 on 12/16/2021. Patient is having nausea and vomiting with cola colored emesis as well as black tarry stools. Hemoglobin on admission here was 3.4. She received 4 units thus far packed red blood cells. Hemoglobin this morning is 9.0. Symptomatically much improved. GI has been consulted. Consider gastric ulcer, gastritis, esophageal varices bleeding as potential etiologies. She is currently on octreotide and Protonix. Plan for endoscopy today. Continue serial HH checks. Appreciate GI and loom fixer supervisor input. (2) GI bleed: Code(s): K92.2 - Gastrointestinal hemorrhage, unspecified Status: Acute Assessment and Plan: More concerning for upper GI bleed. Stool for occult blood ordered. As above. (3) Hypocalcemia: Code(s): E83.51 - Hypocalcemia Status: Acute Assessment and Plan: Calcium 6.9 today. Corrected would be 8.1. Calcium is low probably related to recent blood transfusions. Calcium replacement has been ordered. Continue to follow. (4) Essential (primary) hypertension: Code(s): I10 - Essential (primary) hypertension Status: Chronic Assessment and Plan: Patient's blood pressure was reviewed on 12/24 Blood pressure remains well controlled and soft at times. Soft blood pressure related to severe anemia. Home medications on hold. Resume home medications as blood pressure tolerates. (5) Seizure disorder: Code(s): G40.909 - Epilepsy, unspecified, not intractable, without status epilepticus Status: Chronic Assessment and Plan: Patient has a history of seizure disorder. No evidence of recurrence. Keppra has been continued. (6) Depression: Qualifiers: Depression Type: unspecified Qualified Code(s): F32.A - Depression, unspecified Code(s): F32.9 - Major depressive disorder, single episode, unspecified Status: Acute Assessment and Plan: Patient has a history of depression and anxiety. She has been continued on Seroquel, Buspar and desvenlafaxine. Lorazepam is available as needed. Plan DVT prophylaxis: SCDs Code status: Full Diet: NPO Subjective Date/time seen: 12/24/21 08:44 Interval history: 51yo female with hx of alcoholism, chronic pancreatitis, esophageal varices and anemia here for weakness, n/v and SOB. Emesis was cola colored but no dorota blood. She was having black, tarry stools. She was recently discharged on 12/16/21 after being hospitalized for 2 days for intractable n/v, anemia and ac/ch pancreatitis. hgb was 6.0 and she was transfused 1U PRBC. Hgb at discharge was 8.3. Patient presents this time with Hgb 3.4. Patient feels much better today. Patient denies any chest pain or shortness of breath. No nausea or vomiting. No vomiting for the past 2 days. No bowel movement since admission. Last alcoholic drink was 18 months ago. Exam Narrative: AF 97.7 97/64 99 20 99% ra Gen - NARD Chest - CTA bilaterally, nml RR CV - RRR S1/S2. Tele showing no significant dysrhythmias Abd - Soft, NT/ND, Positive BS Ext - No pedal edema Neuro - Alert and oriented. Nonfocal exam. Psych - Nml mood and affect Skin - Warm and dry Objective Data Vital Signs Vital Signs: Vital Signs - 24 hr 12/23/21 14:24 12/23/21 15:06 12/23/21 15:30 Temperature 98.0 F Pulse Rate 129 H 121 H 114 H Respiratory Rate 20 16 Blood Pressure 85/62 L 106/53 L Pulse Oximetry 100 98 Oxygen Delivery Room Air 12/23/21 16:37 12/23/21 16:59 12/23/21 17:12 Temperature 98 F 98.2 F Pulse Rate 106 H 105 H 97 Respiratory Rate 13 19 26 H Blood Pressure 99/66 L 130/61 104/71 Pulse Oximetry 99 95 97 Oxygen Delivery 12/23/21 18:00 12/23/21 1
--- NOTE | 2021-12-24 09:01 | WPDCNINT ---
Assessment and Plan Assessment and plan (1) Acute on chronic blood loss anemia: Code(s): D62 - Acute posthemorrhagic anemia Status: Acute Assessment and Plan: Patient presented the ED with symptoms of generalized weakness, nausea, vomiting cola colored emesis, patient also had black tarry stools. -in the ER her hemoglobin on admission was 3.4, -received 4 units of packed RBCs -hemoglobin this morning is 9.0. -symptomatically improved likely source of the bleed could be gastritis, peptic ulcer disease, esophageal varices -continue Protonix IV q.12 hours and octreotide infusion -GI has been consulted -patient will get endoscopy likely today (2) GI bleed: Code(s): K92.2 - Gastrointestinal hemorrhage, unspecified Status: Acute Assessment and Plan: Likely upper GI bleed as patient had black starry stools -continue treatment as above (3) Hypocalcemia: Code(s): E83.51 - Hypocalcemia Status: Acute Assessment and Plan: Calcium has been replaced -will continue to monitor (4) Seizure disorder: Code(s): G40.909 - Epilepsy, unspecified, not intractable, without status epilepticus Status: Chronic Assessment and Plan: Continue Keppra (5) Depression: Qualifiers: Depression Type: unspecified Qualified Code(s): F32.A - Depression, unspecified Code(s): F32.9 - Major depressive disorder, single episode, unspecified Status: Acute Assessment and Plan: Continue Seroquel, BuSpar, desvenlafaxine Plan DVT prophylaxis: SCDs, no chemoprophylaxis due to severe anemia and GI bleed Stress ulcer prophylaxis: Protonix IV q.12 hours Nutrition: NPO for now Code Status: Full code Critical Care Time Spent: 47 minutes Due to a high probability of clinically significant, life threatening deterioration, the patient required my highest level of preparedness to intervene emergently and I personally spent this critical care time directly and personally managing the patient. This critical care time included obtaining a history; examining the patient; pulse oximetry; ordering and review of studies; arranging urgent treatment with development of a management plan; evaluation of patient's response to treatment; frequent reassessment; and discussions with other providers. It was exclusive of separately billable procedures and treating other patients and teaching time. Please see Assessment and Plan section and the rest of the note for further information on patient assessment and treatment [employer] Consult Note Consult date: 12/24/21 Reason for consult: Severe anemia, GI bleed HPI: Adina Jerome is a /51 year old female with past medical history of chronic pancreatitis, history of alcohol abuse quit 18 months ago, history of gastritis, esophageal varices with multiple EGDs and colonoscopies, patient has a history anemia, anxiety, depression, essential hypertension, seizure disorder presented the ED on 12/23/2021 with complaints of weakness, nausea, vomiting and shortness of breath. In the ER she stated her emesis looked like dewayne but denies any dorota blood or clots. She also had a bowel movement on 12/22 which was black and tarry. She denies any chest pain, shortness of breath, abdominal pain. She does take Protonix twice daily. Her last EGD in May 2021 showed gastritis without esophageal varices. In the ER patient had hemoglobin of 3.4, 4 units of packed RBCs were transfused overnight. Patient was transferred to the ICU for further management Patient seen examined the ICU, is awake, alert, oriented x3, pleasant personality. Patient states she feels much better. She denies any tobacco or illicit drug use and stated that she quit alcohol about 18 months ago. Patient denies any chest pain, abdominal pain, nausea, vomiting, diarrhea. She has not had any bowel movement since admission to the ICU or emesis. Hemodynamically stable, afebrile, adequate urin
[2021-12-24] MEDS: CALCIUM GLUC 2,000 MG/NS 100ML 2,000 MG/100 ML BAG 100 MG IVPB (11:43)
--- NOTE | 2021-12-24 12:22 | WPDGICN ---
Assessment and Plan Assessment and plan (1) Melena: Code(s): K92.1 - Melena Status: Acute Assessment and Plan: will proceed with egd tomorrow she had multiple scopes unable to find source of anemia however this time she is here with melena and dark emesis, will assess if varices, ulcer, avm, etc continue with protonix and octreotide (h/o chronic pancreatitis) (2) Acute on chronic blood loss anemia: Code(s): D62 - Acute posthemorrhagic anemia Status: Acute Assessment and Plan: ongoing problem and she already had multiple scopes by her GI doctor, last one here 05/2021 egd in am she also has seeing hematology as outpatient (3) Chronic pancreatitis: Qualifiers: Pancreatitis type: alcohol induced Qualified Code(s): K86.0 - Alcohol-induced chronic pancreatitis Code(s): K86.1 - Other chronic pancreatitis Status: Chronic Assessment and Plan: no evidence of acute pancreatitis now (4) MGUS (monoclonal gammopathy of unknown significance): Code(s): D47.2 - Monoclonal gammopathy Status: Chronic (5) Alcohol abuse: Code(s): F10.10 - Alcohol abuse, uncomplicated Status: Chronic Assessment and Plan: abstinent for more than 1.5 year (6) Intractable nausea and vomiting: Code(s): R11.2 - Nausea with vomiting, unspecified Status: Acute Assessment and Plan: improved GI Consult Note Consult date/time: 12/24/21 12:22 Reason for consult: melena, chronic pancreatitis, symptomatic anemia HPI: Adina Jerome is a 51 year old female who is known to me with recent hospitalization for intractable n/v and worsening anemia. She has history of chronic pancreatitis with hx of pancreatic pseudocyst r/t alcohol abuse (no longer drinking since 04/2020) treated by her regular GI, Dr Núñez at [facility] (had multiple ERCP, also had pancreatic-colonic fistula treated with stents), anxiety, seizures, depression, had bone marrow biopsy that showed MGUS with recurrent SHERLEY followed by hematology (she is getting IV iron- can not tolerate oral- and blood transfusion as needed). She had multiple EGD's with enteroscopy (last time tattooed more distal site reached with scope in the jejunum), colonoscopy, had 2 small bowel capsule- no obvious signs of bleeding despite extensive GI work up. I performed push enteroscopy 05/2021 and negative for bleeding. She left the hospital several days ago and she is back after noted dark tarry stools with nausea and dark emesis and worsening shortness of breath. Hb was 3.4, she was given blood transfusion and admitted to ICU. The patient was started on IV fluids, octreotide, Protonix, and Zofran in the emergency room. No more melena, mild epigastric discomfort. CXR unremarkable. Review of Systems Review of Systems: All systems reviewed & are unremarkable except as noted in HPI and below Constitutional: Constitutional: Denies chills, Reports fatigue and Denies fever(s) Eyes: Eyes: Reports no additional eye complaints ENT: Denies nasal congestion Cardiovascular: Cardiovascular: Denies chest pain Respiratory: Respiratory: Denies cough and Reports dyspnea on exertion Gastrointestinal: Gastrointestinal: Denies abdominal pain, Reports nausea and Reports vomiting Genitourinary: Genitourinary: Denies hematuria Musculoskeletal: Musculoskeletal: Denies arthralgias Integumentary/Breasts: Skin/Breast: Denies rash Neurologic: Denies Abnormal speech present Psychiatric: Psychiatric: Reports anxiety [facility] Past Medical History Medical History (Updated 12/24/21 @ 12:27 by Nick Yepez MD) Acute on chronic blood loss anemia Acute on chronic pancreatitis Adenomatous colon polyp Anemia Anxiety Biliary stricture Chronic pancreatitis With history of pseudocyst. Coffee ground emesis Depression Esophageal varices Essential (primary) hypertension Gastroesophageal reflux disease History of alcohol abuse [place]
[2021-12-24 14:19] LABS: Hematocrit 30.1 % (37.0-47.0); Hemoglobin 9.7 g/dL (12.0-15.0)
[2021-12-24] MEDS: SODIUM CHLORIDE 0.9% IV 1,000 ML 125 ML IV CONT (16:17)
[2021-12-24] MEDS: QUEtiapine FUMARATE 25 MG TABLET 50 MG PO (20:19)
[2021-12-24] MEDS: MELATONIN 5 MG TABLET PO (20:21)
[2021-12-24 20:48] LABS: Hematocrit 30.1 % (37.0-47.0); Hemoglobin 9.6 g/dL (12.0-15.0)
[2021-12-25] VITALS (14 sets, daily range): BP systolic 109–133; BP diastolic 76–87; PULSE 59–125; RESP 16–24; TEMP 36.6–36.8; O2SAT 93–100
[2021-12-25 04:51] LABS: Basophils Absolute Auto 0.1 K/mm3 (0.0-0.1); Basophils Percent Auto 0.7 % (0.2-1.2); Eosinophils Absolute Auto 0.1 K/mm3 (0-0.3); Eosinophils Percent Auto 1.6 % (0-4.4); Hematocrit 31.4 % (37.0-47.0); Hemoglobin 9.9 g/dL (12.0-15.0); Immature Granulocyte Absolute 0.08 K/mm3 (0.00-0.031); Immature Granulocyte Percent A 1.1 % (0-0.5); Lymphocytes Absolute Auto 0.44 K/mm3 (0.9-3.2); Mean Corpuscular HGB Conc 31.5 g/dl (32-36); Mean Corpuscular Hemoglobin 26.6 pg (26-34); Mean Corpuscular Volume 84.4 fl (80-100); Mean Platelet Volume 11.1 fl (7.4-10.4); Monocytes Absolute Auto 0.7 K/mm3 (0.1-0.6); Monocytes Percent Auto 9.5 % (2.6-8.5); Neutrophils Percent Auto 81.1 % (45.5-73.1); Nucleated Red Blood Cells Perc 0.5 % (0.0-0.2); Platelet Count Result 169 k/mm3 (150-375); Red Blood Count 3.72 M/mm3 (4.2-5.4); Red Cell Distribution Width 19.9 % (11.5-14.5); White Blood Count 7.3 K/mm3 (4.5-10.0)
[2021-12-25 05:04] LABS: Alanine Aminotransferase 31 U/L (6-35); Albumin Level 2.9 g/dL (3.5-5.1); Alkaline Phosphatase 57 U/L (38-126); Anion Gap 10 mmol/L (8-16); Aspartate Amino Transferase 26 U/L (14-36); Bilirubin,Total 0.6 mg/dL (0.2-1.3); Blood Urea Nitrogen 4 mg/dL (7-17); Calcium 7.5 mg/dL (8.4-10.2); Carbon Dioxide 21 mmol/L (22-30); Chloride 105 mmol/L (98-107); Estimated CRCL calculation 101 ml/min; Estimated Glomerular Filt Rate > 60; Glucose 109 mg/dL (65-110); Magnesium 1.4 mg/dL (1.6-2.3); Phosphorus 3.5 mg/dL (2.5-4.5); Potassium 3.4 mmol/L (3.4-5.0); Sodium 136 mmol/L (137-145)
[2021-12-25] MEDS: levETIRAcetam 250 MG TABLET 750 MG PO (06:21)
[2021-12-25] MEDS: LACTATED RINGERS 1,000 ML 150 ML IV CONT (07:44)
--- NOTE | 2021-12-25 07:45 | WPDANESEPP ---
Anes - Eval Pre Procedure Procedure: Operation Date: 12/25/21 08:00 Proposed Procedures p Esophagogastroduodenoscopy - Nick Yepez MD <Priscila Jaquez CRNA - Last Filed: 12/25/21 07:49> Date/Time: 12/25/21 07:45 <Priscila Jaquez CRNA - Last Filed: 12/25/21 07:49> Surgeon: Dr. Hallman <Priscila Jaquez CRNA - Last Filed: 12/25/21 07:49> Pre Op Diagnosis: UGI Hemorrhage/Anemia <Priscila Jaquez CRNA - Last Filed: 12/25/21 07:49> Patient Data Age: 51 Gender: F Height: 1.65 m Weight: 83.1 kg <Priscila Jaquez CRNA - Last Filed: 12/25/21 07:49> Last Vital Signs Temp 36.8 C 12/25/21 04:00 Pulse 125 H 12/25/21 05:42 Resp 20 12/25/21 04:00 BP 119/80 12/25/21 04:00 Pulse Ox 97 12/25/21 04:00 O2 Del Method Room Air 12/25/21 03:26 <Priscila Jaquez CRNA - Last Filed: 12/25/21 07:49> Allergies Allergy/AdvReac Type Severity Reaction Status Date / Time No Known Allergies Allergy Verified 12/25/21 07:42 <Priscila Jaquez CRNA - Last Filed: 12/25/21 07:49> Home Medications Medication Instructions Recorded Confirmed Type gabapentin 300 mg capsule 300 mg PO TID 08/26/20 12/23/21 History desvenlafaxine 50 mg 100 mg PO QAM 12/04/20 12/23/21 History tablet,extended release 24 hr [id number]-[id number]-iofxrge 1 cap PO TID 12/04/20 12/23/21 History 24,000-76,000-120,000 unit capsule,delayed rel (Creon) lorazepam 0.5 mg tablet 0.5 mg PO TID PRN Anxiety 12/04/20 12/23/21 History ondansetron 4 mg disintegrating 4 mg PO Q6H PRN Nausea 12/04/20 12/23/21 History tablet cholecalciferol (vitamin D3) 125 125 mcg PO QAM 12/05/20 12/23/21 History mcg (5,000 unit) capsule folic acid 1 mg tablet 1 mg PO DAILY 12/05/20 12/23/21 History multivitamin (Daily Multi-Vitamin 1 tablet PO DAILY 12/05/20 12/23/21 History tablet) quetiapine 50 mg tablet 50 mg PO HS 01/26/21 12/23/21 History levetiracetam 500 mg tablet 750 mg PO Q12H #180 tabs 01/28/21 12/23/21 Rx pantoprazole 40 mg tablet,delayed 40 mg PO Q12HR #60 tabs 05/23/21 12/23/21 Rx release melatonin 5 mg tablet 5 mg PO QHS 12/14/21 12/23/21 History metoprolol succinate 25 mg 25 mg PO QAM 12/14/21 12/23/21 History tablet,extended release 24 hr buspirone 10 mg tablet 10 mg PO BID 12/23/21 12/23/21 History <Priscila Jaquez, HOMAR - Last Filed: 12/25/21 07:49> Laboratory Tests 12/24/21 12/24/21 12/24/21 08:12 14:11 20:37 WBC RBC Hgb 8.9 g/dL L g/dL 9.7 g/dL L g/dL 9.6 g/dL L g/dL (12.0-15.0) (12.0-15.0) (12.0-15.0) Hct 27.1 % L % 30.1 % L % 30.1 % L % (37.0-47.0) (37.0-47.0) (37.0-47.0) MCV MCH MCHC RDW Plt Count MPV Immature Gran % (Auto) Neut % (Auto) Lymph % (Auto) Joseph[place] % (Auto) Eos % (Auto) Baso % (Auto) Lymph # (Auto) [place] # (Auto) Eos # (Auto) Baso # (Auto) Abs Immat Gran (auto) Absolute Neuts (auto) Absolute Nucleated RBC Nucleated RBC % Sodium Potassium Chloride Carbon Dioxide Anion Gap BUN Creatinine Estim Creat Clear Calc Estimated GFR Glucose Calcium Phosphorus Magnesium Total Bilirubin AST ALT Alkaline Phosphatase Total Protein Albumin 12/25/21 12/25/21 04:38 04:38 WBC 7.3 K/mm3 K/mm3 (4.5-10.0) RBC 3.72 M/mm3 L M/mm3 (4.2-5.4) Hgb 9.9 g/dL L g/dL (12.0-15.0) Hct 31.4 % L % (37.0-47.0) MCV 84.4 fl fl (80-100) MCH 26.6 pg pg (26-34) MCHC 31.5
--- NOTE | 2021-12-25 07:54 | P.PNAN_ITS ---
Anes - Eval Final PreProcedure Day of Procedure 12/25/21 07:54 Patient weight: obese Heart: regular rate and rhythm Lungs: clear to auscultation Airway: Mallampati scale class II Neurological: alert and oriented Last oral intake: >/= 8 hours ASA classification: III Emergent: yes Anesthetic plan: proceed Anesthesia type and monitoring: general GIVS and standard monitoring Results Review: All pre-operative results and documents have been reviewed as part of the pre- operative evaluation. Informed Consent: The patient's anesthetic plan and its attendant risks and benefits were discussed with the patient/family/POA. Questions were solicited and answers provided to the satisfaction of the patient/family/POA.
--- NOTE | 2021-12-25 08:25 | PC.NURSE ---
Patient in GI lab, No interventions. Gastritis and Hiatal Hernia. Vital signs stable, No distress noted.
[2021-12-25] MEDS: LORazepam (*CRX) 0.5 MG TABLET PO (11:25)
[2021-12-25] MEDS: LIPASE/AMYLASE/PROTEASE 12,000 UNITS CAP 2 CAP PO (11:26)
[2021-12-25] MEDS: busPIRone HCL 10 MG TABLET PO (11:26)
[2021-12-25] MEDS: PANTOPRAZOLE 40 MG TABLET PO (11:26)
[2021-12-25] MEDS: DESVENLAFAXINE SUCCINATE 50 MG TAB.ER.24H 100 MG PO (11:27)
[2021-12-25] MEDS: FOLIC ACID 1 MG TABLET PO (11:27)
[2021-12-25] MEDS: GABAPENTIN 300 MG CAPSULE PO (11:27)
[2021-12-25] MEDS: MAGNESIUM OXIDE 400 MG TABLET PO (11:41)
[2021-12-25] MEDS: traMADol HCL (*CRX) 25 MG TABLET PO (14:19)
[2021-12-25] MEDS: ONDANSETRON INJ 4 MG/2 ML VIAL IV PUSH (14:20)
--- NOTE | 2021-12-25 15:39 | PM.DS ---
DS: Admitting Diagnosis Discharge Date 12/25/21 Admitting Diagnosis Nausea, vomiting and weakness DS: Discharge Diagnosis Discharge Diagnosis (1) Acute on chronic anemia: Code(s): D64.9 - Anemia, unspecified Status: Inactive (2) GI bleed: Code(s): K92.2 - Gastrointestinal hemorrhage, unspecified Status: Acute (3) Hypocalcemia: Code(s): E83.51 - Hypocalcemia Status: Acute (4) Essential (primary) hypertension: Code(s): I10 - Essential (primary) hypertension Status: Chronic (5) Seizure disorder: Code(s): G40.909 - Epilepsy, unspecified, not intractable, without status epilepticus Status: Chronic (6) Depression: Qualifiers: Depression Type: unspecified Qualified Code(s): F32.A - Depression, unspecified Code(s): F32.9 - Major depressive disorder, single episode, unspecified Status: Acute DS: Summary Hospital Course Reason for hospitalization: 51yo female with hx of alcoholism, chronic pancreatitis, esophageal varices and anemia here for weakness, n/v and SOB. Emesis was cola colored but no [place] blood. She was having black, tarry stools. She was recently discharged on 12/16/21 after being hospitalized for 2 days for intractable n/v, anemia and ac/ch pancreatitis. hgb was 6.0 and she was transfused 1U PRBC. Hgb at discharge was 8.3. Patient presents this time with Hgb 3.4. Please see H&P for details Hospital Course: Patient present with n/v and weakness and found to have profound anemia. Patient does have chronic anemia.? Hemoglobin was 8.3 on 12/16/21.? Patient was having nausea and vomiting with cola colored emesis as well as black tarry stools.? Hemoglobin on admission here was 3.4.? She received 4 units packed red blood cells.? Hemoglobin climbed to the 9 range.? Symptomatically she is much improved.?She was started on octreotide due to her hx of esophageal varices and admitted to the ICU. Rehab Aide and GI were consulted.? Chest x-ray was clear. Hemoglobin stabilized. She underwent EGD which showed hiatal hernia and mild gastritis. Upper GI with small-bowel series showed no abnormalities. Octreotide was stopped. She was eating and tolerating oral intake. It was recommended the patient that she follow-up with her GI doctor in [place]. She overall did well and was able to be discharged home on 12/25/2021. Status at Discharge Cognitive/behavioral status at discharge: Stable Time Spent with Patient Time attestation: Total time spent providing and/or coordinating discharge services: 35 minutes Time spent: Greater than 30 minutes Exam Narrative: AF 98.0 133/82 107 16 99% ra Gen - NARD Chest - CTA bilaterally, nml RR CV - RRR S1/S2. Tele showing no significant dysrhythmias Abd - Soft, NT/ND, Positive BS Ext - No pedal edema Psych - Nml mood and affect Skin - Warm and dry DS: Data Data Completed and Pending Labs on day of discharge: Labs from last 24 hours 12/25/21 12/25/21 12/24/21 04:38 04:38 20:37 WBC 7.3 RBC 3.72 L Hgb 9.9 L 9.6 L Hct 31.4 L 30.1 L MCV 84.4 MCH 26.6 MCHC 31.5 L RDW 19.9 H Plt Count 169 MPV 11.1 H Immature Gran % (Auto) 1.1 H Neut % (Auto) 81.1 H Lymph % (Auto) 6.0 L [place] % (Auto) 9.5 H Eos % (Auto) 1.6 Baso % (Auto) 0.7 Lymph # (Auto) 0.44 L [place] # (Auto) 0.7 H Eos # (Auto) 0.1 Baso # (Auto) 0.1 Abs Immat Gran (auto) 0.08 H Absolute Neuts (auto) 6.0 Absolute Nucleated RBC 0.0 Nucleated RBC % 0.5 H Sodium 136 L Potassium 3.4 Chloride 105 Carbon Dioxide 21 L Anion Gap 10 BUN 4 L D Creatinine 0.60 L Estim Creat Clear Calc 101 Estimated GFR > 60 Glucose 109 Calcium 7.5 L Phosphorus 3.5 Magnesium 1.4 L Total Bilirubin 0.6 AST 26 ALT 31 Alkaline Phosphatase 57 Total Protein 5.0 L Albumin 2.9 L Preliminary micro results at disch
== END 2021-12-25 16:58 | disposition home or self-care (01) | DRG 378 ==
LOC: ANHED 16:05 → ANHIMU 16:32 → ANHICU 17:43 → ANHIMU 12-24 15:45
PROVIDERS: Internal Medicine Gastroenterology; Admitting Provider Internal Medicine; Emergency Provider General Practice; PCP Family Medicine; Visit Provider Internal Medicine
PROC: 0DJ08ZZ Inspection of Upper Intestinal Tract, Via Natural or Artificial Opening Endoscopic (ICD-10-PCS; CPT 43235; principal; 2021-12-25 08:00)
DX: K92.1 Melena (principal); K86.0 Alcohol-induced chronic pancreatitis; F10.10 Alcohol abuse, uncomplicated; D64.9 Anemia, unspecified; K29.70 Gastritis, unspecified, without bleeding; K21.9 Gastro-esophageal reflux disease without esophagitis; K44.9 Diaphragmatic hernia without obstruction or gangrene; D47.2 Monoclonal gammopathy; E83.51 Hypocalcemia; F41.9 Anxiety disorder, unspecified; F32.A Depression, unspecified; I10 Essential (primary) hypertension; G40.909 Epilepsy, unspecified, not intractable, without status epilepticus; D50.9 Iron deficiency anemia, unspecified; Z79.899 Other long term (current) drug therapy
CPT/HCPCS: 36415; 36430; 71045; 74250; 80053; 81001; 83605; 83690; 83735; 83880; 84100; 84484; 85014; 85018; 85025; 85610; 85730; 86140; 86850; 86900; 86901; 86920; 87040; 93005; 96361; 96374; 99285; A9270; C9113; J0131; J0610; J2270; J2354; J2405; J2704; J7030; J7050; J7120; P9016

== ENCOUNTER 2022-01-03 20:03 | Inpatient (IN) | payer MEDICARE, BC, SELFPAY ==
[2022-01-03] VITALS (28 sets, daily range): BP systolic 90–112; BP diastolic 50–92; PULSE 87–117; RESP 14–28; TEMP 36.4–37.2; O2SAT 97–100
--- NOTE | ~2022-01-03 | NM_ITS ---
EXAMINATION: NM GI bleeding DATE: 01/05/2022 14:43 INDICATION: Anemia. TECHNIQUE: 23.5 mCi Tc 99m in vitro labeled red cells was administered intravenously. Scintigraphic images of the abdomen were obtained for one hour. COMPARISON: CT abdomen and pelvis 12/14/21 FINDINGS: No pattern of abnormal activity is seen in the abdomen or pelvis to suggest gastrointestina l hemorrhage. IMPRESSION: 1. No evidence of active gastrointestinal hemorrhage. Reviewed, dictated and finalized at location A.
--- NOTE | ~2022-01-03 | XR_ITS ---
EXAMINATION: XR chest 1V portable DATE: 01/03/2022 20:47 INDICATION: Shortness of breath. Chronic anemia and chronic pancreatitis. TECHNIQUE: frontal view of the chest was obtained. COMPARISON: Chest radiograph dated 12/23/2021 FINDINGS: The lungs remain clear with no focal airspace opacities, pulmonary edema, pleural effusion or pneumot horax. The cardiomediastinal silhouette is normal. Mild upper thoracic levocurvature. IMPRESSION: 1. No acute cardiopulmonary disease. Reviewed, dictated and finalized at location A.
--- NOTE | 2022-01-03 20:08 | ECG_ITS ---
Measurements Intervals [place] Rate: 95 P: 46 ME: 119 QRS: 28 QRSD: 77 T: 15 QT: 340 QTc: 428 Interpretive Statements SINUS RHYTHM WITH SHORT ME INTERVAL BASELINE ARTIFACT- I, III, AVL, AVF BORDERLINE ECG COMPARED TO ECG 12/23/2021 14:33:59 HEART RATE HAS DECREASED Electronically Signed On 01-03-2022 21:55:18 CDT by Tyler Lord D.O.
--- NOTE | 2022-01-03 20:10 | ED.GENADULT ---
HPI - General Adult General Chief complaint: Shortness of Breath/Dyspnea Stated complaint: SOB, RECENT COVID Time Seen by Provider: 01/03/22 20:05 History of Present Illness HPI narrative: 51-year-old female with history of pancreatitis, seizures and iron deficiency anemia requiring blood transfusions presented the emergency department for evaluation of dizziness and lightheadedness. Patient states that she began feeling poorly today. Patient states that she has had some nausea and vomiting today. Patient denies any hematemesis or hematochezia. Patient denies any associate abdominal pain. When EMS arrived patient was found to be hypotensive but did receive IV fluids and upon arrival to the emergency department patient states she does feel improved. Patient had a recent hospital admission requiring 4 units of packed red blood transfusion. Patient did have an EGD which showed no acute bleeding. Related Data Home Medications Medication Instructions Recorded Confirmed gabapentin 300 mg capsule 300 mg PO TID 08/26/20 12/23/21 desvenlafaxine 50 mg 100 mg PO QAM 12/04/20 12/23/21 tablet,extended release 24 hr deeanm-xbrbnyfz-iogrzqa 1 cap PO TID 12/04/20 12/23/21 24,000-76,000-120,000 unit capsule,delayed rel (Creon) lorazepam 0.5 mg tablet 0.5 mg PO TID PRN Anxiety 12/04/20 12/23/21 ondansetron 4 mg disintegrating 4 mg PO Q6H PRN Nausea 12/04/20 12/23/21 tablet cholecalciferol (vitamin D3) 125 125 mcg PO QAM 12/05/20 12/23/21 mcg (5,000 unit) capsule folic acid 1 mg tablet 1 mg PO DAILY 12/05/20 12/23/21 multivitamin (Daily Multi-Vitamin 1 tablet PO DAILY 12/05/20 12/23/21 tablet) quetiapine 50 mg tablet 50 mg PO HS 01/26/21 12/23/21 melatonin 5 mg tablet 5 mg PO QHS 12/14/21 12/23/21 metoprolol succinate 25 mg 25 mg PO QAM 12/14/21 12/23/21 tablet,extended release 24 hr buspirone 10 mg tablet 10 mg PO BID 12/23/21 12/23/21 Allergies Allergy/AdvReac Type Severity Reaction Status Date / Time No Known Allergies Allergy Verified 01/03/22 21:23 Review of Systems Review of Systems: CONSTITUTIONAL: Dizziness lightheadedness. EYES: Denies visual changes, redness, or discharge. ENT: Denies rhinorrhea, congestion, sore throat, or otalgia. CARDIOVASCULAR: Denies chest pain, palpitations, or edema. RESPIRATORY: Denies cough or dyspnea. GASTROINTESTINAL: Nausea and vomiting GENITOURINARY: Denies dysuria or hematuria. SKIN: Denies rash or itching. MUSCULOSKELETAL: Denies back pain, joint pain, or myalgia. NEUROLOGIC: Denies headache, numbness, or weakness. PSYCHIATRIC: Denies anxiety or depression. [facility] Past Medical History Medical History Acute on chronic blood loss anemia Acute on chronic pancreatitis Adenomatous colon polyp Anemia Anxiety Biliary stricture Chronic pancreatitis With history of pseudocyst. Coffee ground emesis Depression Esophageal varices Essential (primary) hypertension Gastroesophageal reflux disease History of alcohol abuse Sober since 2018. Inflammatory arthritis Iron deficiency anemia Melena Monoclonal gammopathy of unknown significance Poorly documented. Occult GI bleeding Attributed to AVMs. Portal vein thrombosis Seizure disorder Seizure disorder Surgical History Surgical History History of colonoscopy with polypectomy History of lumpectomy of right breast Presence of pancreatic duct stent Family History Family History Father Hypertension Cerebrovascular accident Congestive heart failure Mother Hypertension Rheumatoid arthritis Sibling Hypertension Anxiety Social History Social History Social History: Surrogate decision maker: Patricia Jerome, mother. She lives with her mother and has no children. 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
[2022-01-03 20:40] LABS: Basophils Absolute Auto 0.1 K/mm3 (0.0-0.1); Basophils Percent Auto 0.6 % (0.2-1.2); Eosinophils Absolute Auto 0.1 K/mm3 (0-0.3); Eosinophils Percent Auto 1.1 % (0-4.4); Hematocrit 24.8 % (37.0-47.0); Lymphocytes Absolute Auto 1.23 K/mm3 (0.9-3.2); Lymphocytes Percent Auto 12.4 % (18.3-44.2); Mean Corpuscular HGB Conc 28.6 g/dl (32-36); Mean Corpuscular Hemoglobin 25.4 pg (26-34); Mean Corpuscular Volume 88.6 fl (80-100); Mean Platelet Volume 11.5 fl (7.4-10.4); Monocytes Percent Auto 9.9 % (2.6-8.5); Neutrophils Absolute Auto 7.3 K/mm3 (1.3-6.7); Nucleated Red Blood Cells Perc 0.2 % (0.0-0.2); Platelet Count Result 195 k/mm3 (150-375); Red Cell Distribution Width 18.8 % (11.5-14.5); White Blood Count 9.9 K/mm3 (4.5-10.0)
[2022-01-03] MEDS: SODIUM CHLORIDE 0.9% IV 1,000 ML 999 ML IV CONT (20:46)
[2022-01-03 20:49] LABS: Hemoglobin 7.1 g/dL (12.0-15.0)
[2022-01-03 20:50] LABS: Hypochromasia 1+ (NORMAL); Ovalocytes 1+ (NORMAL); Platelet Estimate Adequate (Adequate); Schistocytes None Seen (NORMAL)
[2022-01-03 21:00] LABS: Alanine Aminotransferase 43 U/L (6-35); Albumin Level 2.9 g/dL (3.5-5.1); Alkaline Phosphatase 58 U/L (38-126); Anion Gap 11 mmol/L (8-16); Aspartate Amino Transferase 32 U/L (14-36); Bilirubin,Total 0.3 mg/dL (0.2-1.3); Blood Urea Nitrogen 32 mg/dL (7-17); Calcium 8.3 mg/dL (8.4-10.2); Carbon Dioxide 23 mmol/L (22-30); Chloride 101 mmol/L (98-107); Estimated CRCL calculation 98 ml/min; Estimated Glomerular Filt Rate > 60; Glucose 125 mg/dL (65-110); Potassium 4.2 mmol/L (3.4-5.0); Sodium 135 mmol/L (137-145)
[2022-01-03] MEDS: SODIUM CHLORIDE 0.9% IV 250 ML BAG 500 ML IVPB (22:18)
[2022-01-03] MEDS: SODIUM CHLORIDE 0.9% IV 250 ML 30 ML IV CONT (23:46)
[2022-01-03] MEDS: TUBING, BLOOD SET 1 EACH XX (23:46)
[2022-01-03] MEDS: ONDANSETRON INJ 4 MG/2 ML VIAL IV PUSH (23:59)
[2022-01-04] VITALS (19 sets, daily range): BP systolic 91–119; BP diastolic 53–93; PULSE 75–100; RESP 16–25; TEMP 36.1–36.5; O2SAT 97–100
[2022-01-04 00:14] LABS: Appearance Urine Clear (Clear); Bilirubin Urine Negative (Negative); Blood Urine Trace-intact (Negative); Color Urine Yellow (Yellow); Glucose Urine UA Negative (Negative); Ketones Urine Negative (Negative); Leukocyte Esterase Ur Negative LEU/UL (Negative); Nitrate Urine Negative (Negative); Protein Urine Negative (Negative); Specific Grav Ur 1.015 (1.001-1.035)
[2022-01-04 00:19] LABS: RBC Urine 0-2 /hpf (0-2); Squamous Epithelial Cell Urine Occasional /hpf (Few); WBC Urine 0-3 /hpf
[2022-01-04 00:21] LABS: Add Urine Microscopic? YES
--- NOTE | 2022-01-04 00:26 | PC.NURSE ---
Blood infusing without difficulty. Pt states nausea has gone after receiving zofran IVP. Denies needs at present.
--- NOTE | 2022-01-04 01:39 | PC.NURSE ---
blood infusion complete. Preparing to d/c. Pt has been ambulatory to bathroom x 2 without difficulty. States is slightly dizzy upon standing but stands shortly and it goes away.
--- NOTE | 2022-01-04 01:55 | PC.NURSE ---
In to d/c patient. Pt sitting on bed with brittany-bag in place. c/o nausea and feeling dizzy. Cool clothe given to forehead. Pt states hasn't eaten in 1.5 days. Offered crackers to eat and pt refuses. Dr. Bray made aware and armand ordered and given.
[2022-01-04] MEDS: ONDANSETRON HCL ODT 4 MG TABLET PO (02:05)
[2022-01-04] MEDS: METOCLOPRAMIDE HCL 5 MG TABLET PO (02:45)
--- NOTE | 2022-01-04 02:48 | PC.NURSE ---
Pt ambulatory to bathroom. States nausea continues. Additional pills given po with Claudia Mist.
--- NOTE | 2022-01-04 03:40 | PC.NURSE ---
Pt continues to c/o nausea and dizziness, states I almost feel worse than when I came in . Dr. Bray made aware and in to speak with patient.
--- NOTE | 2022-01-04 04:00 | PC.NURSE ---
Preparing to admit patient. Will initiate IV sites again.
--- NOTE | 2022-01-04 04:49 | PC.NURSE ---
Pt states she last tested for covid a year ago when a family member had covid, has never tested positive for it herself and hasn't been tested recently. States is fully vaccinated.
--- NOTE | 2022-01-04 05:09 | PM.IMHP ---
H&P: HPI History of Present Illness Date/Time: 01/04/22 05:09 Chief Complaint: dizziness Narrative: This is a 51-year-old female with past medical history significant for alcohol abuse, chronic pancreatitis, esophageal varices, hypertension, gastroesophageal reflux disease, MGUS. patient presents to the emergency room via EMS due to dizziness, lightheadedness, shortness of breath, palpitations, near-syncope. Patient had recent admission where she was treated for acute on chronic anemia and discharged home on a course of Ceftin for urinary tract infection patient has no completed her antibiotic course. Denies any fevers, rigors, chills, nausea, vomiting, hematemesis, melena, cough, sputum production.Prior to arrival to the emergency room on route to the hospital patient was found to have a blood pressure systolic of 70 and received fluids. In emergency room patient was given 1 unit of blood packed RBCs. Patient was noted to be orthostatic emergency room is still very symptomatic upon standing decision has been made to admit the patient for further evaluation management and treatment. Review of Systems Review of Systems: Dizziness, lightheadedness, near-syncope, palpitations, shortness of breath. Constitutional: Constitutional: Denies chills, Reports fatigue, Denies fever(s), Reports lethargy, Denies malaise, Denies poor appetite and Denies weakness Eyes: Eyes: Denies change in vision ENT: Denies dysphagia, Denies vertigo, Denies dizziness and Denies odynophagia Cardiovascular: Cardiovascular: Denies chest pain, Reports lightheadedness, Reports palpitations and Reports other ( Near-syncope) Respiratory: Respiratory: Denies chest congestion, Denies cough, Denies excessive phlegm production, Denies pain on inspiration, Denies dyspnea and Denies dyspnea on exertion Gastrointestinal: Gastrointestinal: Denies abdominal pain, Denies dyspepsia, Denies heartburn, Denies diarrhea, Denies nausea and Denies vomiting Genitourinary: Genitourinary: Denies dysuria Musculoskeletal: Musculoskeletal: Denies myalgias and Denies joint swelling Integumentary/Breasts: Skin/Breast: Denies rash Neurologic: Denies focal weakness and Denies Sensory deficit (Neuro) Psychiatric: Psychiatric: Reports no additional psychiatric complaints and Reports as per HPI Endocrine: Endocrine: Denies cold intolerance, Denies flushing, Denies heat intolerance, Denies polyphagia, Denies polydipsia and Denies palpitations Hematologic/Lymphatic: Hematologic/Lymphatic: Reports no additional hematologic/lymphatic complaints and Reports as per HPI Allergic/Immunologic: Allergic/Immunologic: Reports no additional allergic/immunologic complaints and Reports as per HPI [facility] Past Medical History Medical History Acute on chronic blood loss anemia Acute on chronic pancreatitis Adenomatous colon polyp Anemia Anxiety Biliary stricture Chronic pancreatitis With history of pseudocyst. Coffee ground emesis Depression Esophageal varices Essential (primary) hypertension Gastroesophageal reflux disease History of alcohol abuse Sober since 2018. Inflammatory arthritis Iron deficiency anemia Melena Monoclonal gammopathy of unknown significance Poorly documented. Occult GI bleeding Attributed to AVMs. Portal vein thrombosis Seizure disorder Seizure disorder Surgical History Surgical History History of colonoscopy with polypectomy History of lumpectomy of right breast Presence of pancreatic duct stent Family History Family History Father Hypertension Cerebrovascular accident Congestive heart failure Mother Hypertension Rheumatoid arthritis Sibling Hypertension Anxiety Social History Social History Social History: Amanda
--- NOTE | 2022-01-04 05:30 | ADMGEN ---
This patient, Adina Jerome, was admitted to 3 [facility] Surg Room 302-01. Patient/family oriented to hospital policies and general routines including ID bracelet, bed and alarms, visiting hours, pain management, procedures, bathroom and other care routines, personal items, smoking policy, room service/diet, and visiting hours. Information on how to activate the Rapid Response Team has been discussed. Patient/Family are encouraged to report perceived risks to care and to ask questions if they do not understand what they are told or what they should do.
[2022-01-04 11:36] LABS: Basophils Absolute Auto 0.1 K/mm3 (0.0-0.1); Basophils Percent Auto 0.8 % (0.2-1.2); Eosinophils Absolute Auto 0.2 K/mm3 (0-0.3); Eosinophils Percent Auto 3.3 % (0-4.4); Hematocrit 27.3 % (37.0-47.0); Hemoglobin 8.1 g/dL (12.0-15.0); Immature Granulocyte Absolute 0.09 K/mm3 (0.00-0.031); Immature Granulocyte Percent A 1.5 % (0-0.5); Lymphocytes Percent Auto 16.5 % (18.3-44.2); Mean Corpuscular HGB Conc 29.7 g/dl (32-36); Mean Corpuscular Hemoglobin 26.2 pg (26-34); Mean Corpuscular Volume 88.3 fl (80-100); Monocytes Absolute Auto 0.5 K/mm3 (0.1-0.6); Monocytes Percent Auto 7.6 % (2.6-8.5); Neutrophils Absolute Auto 4.3 K/mm3 (1.3-6.7); Neutrophils Percent Auto 70.3 % (45.5-73.1); Platelet Count Result 175 k/mm3 (150-375); Red Blood Count 3.09 M/mm3 (4.2-5.4); White Blood Count 6.1 K/mm3 (4.5-10.0)
[2022-01-04 11:47] LABS: Alanine Aminotransferase 39 U/L (6-35); Albumin Level 3.3 g/dL (3.5-5.1); Alkaline Phosphatase 64 U/L (38-126); Anion Gap 11 mmol/L (8-16); Aspartate Amino Transferase 25 U/L (14-36); Bilirubin,Total 0.4 mg/dL (0.2-1.3); Blood Urea Nitrogen 23 mg/dL (7-17); Calcium 8.1 mg/dL (8.4-10.2); Carbon Dioxide 20 mmol/L (22-30); Chloride 106 mmol/L (98-107); Estimated CRCL calculation 115 ml/min; Estimated Glomerular Filt Rate > 60; Glucose 96 mg/dL (65-110); Magnesium 1.4 mg/dL (1.6-2.3); Potassium 4.1 mmol/L (3.4-5.0); Sodium 137 mmol/L (137-145)
[2022-01-04] MEDS: levETIRAcetam 250 MG TABLET 750 MG PO ×2 (11:59→21:22)
[2022-01-04] MEDS: GABAPENTIN 300 MG CAPSULE PO ×2 (12:00→17:23)
[2022-01-04] MEDS: LIPASE/AMYLASE/PROTEASE 12,000 UNITS CAP 2 CAP PO ×2 (12:00→17:23)
[2022-01-04 13:01] LABS: Platelet Estimate Adequate (Adequate)
[2022-01-04 13:02] LABS: Anisocytosis 1+ (NORMAL); Hypochromasia 1+ (NORMAL); Schistocytes None Seen (NORMAL)
[2022-01-04] MEDS: MAGNESIUM SULF 2 GM/WATER 50ML 2 GM/50 ML BAG IVPB (14:29)
--- NOTE | 2022-01-04 16:06 | PM.IMPN ---
Progress Note: A&P Assessment and Plan (1) Anemia: Code(s): D64.9 - Anemia, unspecified Status: Acute Assessment and Plan: patient received 1 unit of blood continue to monitor 01/04/2022 interval history: 51-year-old female with history of alcohol abuse been sober for 1 year, history of chronic pancreatitis, presented emergency department with complete dizziness lightheadedness shortness of breath, and palpitation upon arrival patient hemoglobin was 7.1, there is no obvious source of bleeding, patient was given 1 unit of PRBC, to further evaluate will do the iron profile and stool Hemoccult, patient remains clinically stable, patient is able to tolerate full liquid diet will advance her to low-fat diet. (2) Orthostatic hypotension: Code(s): I95.1 - Orthostatic hypotension Status: Acute Assessment and Plan: encourage p.o. intake (3) Chronic pancreatitis: Qualifiers: Pancreatitis type: alcohol induced Qualified Code(s): K86.0 - Alcohol-induced chronic pancreatitis Code(s): K86.1 - Other chronic pancreatitis Status: Chronic Assessment and Plan: stable (4) Gastroesophageal reflux disease: Code(s): K21.9 - Gastro-esophageal reflux disease without esophagitis Status: Chronic Assessment and Plan: PPI (5) Alcohol abuse: Code(s): F10.10 - Alcohol abuse, uncomplicated Status: Chronic Assessment and Plan: patient has been sober Subjective Date/time seen: 01/04/22 16:06 Chief Complaint: dizziness Narrative: ?This is a 51-year-old female with past medical history significant for alcohol abuse, chronic pancreatitis, esophageal varices, hypertension, gastroesophageal reflux disease, MGUS. patient presents to the emergency room via EMS due to dizziness, lightheadedness, shortness of breath, palpitations, near-syncope.? Patient had recent admission where she was treated for acute on chronic anemia and discharged home on a course of Ceftin for urinary tract infection patient has no completed her antibiotic course.? Denies any fevers, rigors, chills, nausea, vomiting, hematemesis, melena, cough, sputum production.Prior to arrival to the emergency room on route to the hospital patient was found to have a blood pressure systolic of 70 and received fluids.? In emergency room patient was given 1 unit of blood packed RBCs.? Patient was noted to be orthostatic emergency room is still very symptomatic upon standing decision has been made to admit the patient for further evaluation management and treatment. 01/04/2022 interval history: 51-year-old female with history of alcohol abuse been sober for 1 year, history of chronic pancreatitis, presented emergency department with complete dizziness lightheadedness shortness of breath, and palpitation upon arrival patient hemoglobin was 7.1, there is no obvious source of bleeding, patient was given 1 unit of PRBC, to further evaluate will do the iron profile and stool Hemoccult, patient remains clinically stable, patient is able to tolerate full liquid diet will advance her to low-fat diet. Review of Systems Review of Systems: denies dizziness, lightheadedness, near-syncope, palpitations, shortness of breath. Constitutional: Constitutional: Denies chills, Reports fatigue, Denies fever(s), Reports lethargy, Denies malaise, Denies poor appetite and Denies weakness Exam Narrative: Patient is comfortable, NAD HEENT: eyes are clear and none icteric LUNGS: normal respiratory effort ABD: not distend Lower extremities: no edema SKIN: nonjaundiced Neuro: grossly intact. Objective Data Vital Signs Vital Signs: Vital Signs - 24 hr 01/03/22 20:06 01/03/22 20:06 01/03/22 20:37 Temperature 98.9 F Pulse Rate 98 91 Respiratory Rate 17 16 Blood Pressure 97/64 L 90/58 L Pulse Oximetry 100 100 100 Oxygen Delivery Room Air Room Air 01/03/22 20:40 01/03/22 20:45 01/03/22
[2022-01-04] MEDS: busPIRone HCL 10 MG TABLET PO (17:23)
[2022-01-04] MEDS: QUEtiapine FUMARATE 25 MG TABLET 50 MG PO (21:22)
[2022-01-04] MEDS: MELATONIN 5 MG TABLET PO (21:22)
[2022-01-04] MEDS: PANTOPRAZOLE 40 MG TABLET PO (21:22)
[2022-01-04] MEDS: LORazepam (*CRX) 0.5 MG TABLET PO (21:22)
[2022-01-05] VITALS (14 sets, daily range): BP systolic 92–121; BP diastolic 7–81; PULSE 80–106; RESP 16–18; TEMP 35.8–36.2; O2SAT 99–100
[2022-01-05 06:07] LABS: Hematocrit 22.2 % (37.0-47.0); Mean Corpuscular HGB Conc 30.2 g/dl (32-36); Mean Platelet Volume 11.4 fl (7.4-10.4); Platelet Count Result 144 k/mm3 (150-375); Red Blood Count 2.58 M/mm3 (4.2-5.4); Red Cell Distribution Width 18.9 % (11.5-14.5); White Blood Count 3.5 K/mm3 (4.5-10.0)
[2022-01-05 06:19] LABS: Hemoglobin 6.7 g/dL (12.0-15.0)
[2022-01-05 06:52] LABS: Alanine Aminotransferase 34 U/L (6-35); Albumin Level 2.6 g/dL (3.5-5.1); Alkaline Phosphatase 59 U/L (38-126); Anion Gap 7 mmol/L (8-16); Aspartate Amino Transferase 27 U/L (14-36); Bilirubin,Total 0.3 mg/dL (0.2-1.3); Blood Urea Nitrogen 11 mg/dL (7-17); Calcium 7.8 mg/dL (8.4-10.2); Carbon Dioxide 20 mmol/L (22-30); Chloride 110 mmol/L (98-107); Estimated CRCL calculation 98 ml/min; Estimated Glomerular Filt Rate > 60; Glucose 96 mg/dL (65-110); Magnesium 1.8 mg/dL (1.6-2.3); Potassium 3.7 mmol/L (3.4-5.0); Sodium 137 mmol/L (137-145)
[2022-01-05 06:54] LABS: Iron 23 ug/dL (37-170)
[2022-01-05 07:02] LABS: Transferrin 256 mg/dL (206-381)
[2022-01-05 07:08] LABS: Percent Iron Saturation 6 % (20-50)
[2022-01-05 07:48] LABS: Ferritin 9.59 ng/mL (11.1-264)
[2022-01-05 07:50] LABS: Folic Acid 17.1 ng/mL (2.76->20)
[2022-01-05] MEDS: LORazepam (*CRX) 0.5 MG TABLET PO ×2 (08:02→20:30)
[2022-01-05] MEDS: levETIRAcetam 250 MG TABLET 750 MG PO ×2 (08:02→20:28)
[2022-01-05] MEDS: busPIRone HCL 10 MG TABLET PO ×2 (08:03→20:29)
[2022-01-05] MEDS: FOLIC ACID 1 MG TABLET PO (08:03)
[2022-01-05] MEDS: MULTIVITAMINS THERAPEUTIC TAB (*BKC) 1 TABLET PO (08:03)
[2022-01-05] MEDS: GABAPENTIN 300 MG CAPSULE PO ×3 (08:03→20:29)
[2022-01-05] MEDS: CHOLECALCIFEROL 1,000 UNITS TABLET 5000 UNITS PO (08:03)
[2022-01-05] MEDS: LIPASE/AMYLASE/PROTEASE 12,000 UNITS CAP 2 CAP PO ×2 (08:03→15:27)
[2022-01-05] MEDS: PANTOPRAZOLE 40 MG TABLET PO ×2 (08:04→20:29)
[2022-01-05] MEDS: diphenhydrAMINE HCl CAP 25 MG CAPSULE PO (08:19)
[2022-01-05] MEDS: traMADol HCL (*CRX) 50 MG TABLET PO ×2 (08:19→20:29)
[2022-01-05] MEDS: DESVENLAFAXINE SUCCINATE 50 MG TAB.ER.24H 100 MG PO (09:49)
--- NOTE | 2022-01-05 12:50 | PC.NURSE ---
pt to [facility] via wheelchair for scheduled scan
--- NOTE | 2022-01-05 12:56 | PM.IMPN ---
Progress Note: A&P Assessment and Plan (1) Anemia: Code(s): D64.9 - Anemia, unspecified Status: Acute Assessment and Plan: patient received 1 unit of blood continue to monitor 01/05/2022 interval history: 51-year-old female with history of alcohol abuse been sober for 1 year, history of chronic pancreatitis, presented emergency department with complained of dizziness lightheadedness shortness of breath, and palpitation upon arrival patient hemoglobin was 7.1, there is no obvious source of bleeding, patient was given 1 unit of PRBC, to further evaluate had iron profile which showed iron deficiency anemia, will venofer 300mg x3, and stool Hemoccult is positive, again this morning patient Hgb drop to 6.7, patient will receive 1 units of PRBC, will do NM-RBC scan to locate possible, bleeding, will consult GI and keep patient NPO, patient remains clinically stable, will monitor. (2) Orthostatic hypotension: Code(s): I95.1 - Orthostatic hypotension Status: Acute Assessment and Plan: encourage p.o. intake (3) Chronic pancreatitis: Qualifiers: Pancreatitis type: alcohol induced Qualified Code(s): K86.0 - Alcohol-induced chronic pancreatitis Code(s): K86.1 - Other chronic pancreatitis Status: Chronic Assessment and Plan: stable (4) Gastroesophageal reflux disease: Code(s): K21.9 - Gastro-esophageal reflux disease without esophagitis Status: Chronic Assessment and Plan: PPI (5) Alcohol abuse: Code(s): F10.10 - Alcohol abuse, uncomplicated Status: Chronic Assessment and Plan: patient has been sober Subjective Date/time seen: 01/05/22 12:56 01/05/2022 interval history: 51-year-old female with history of alcohol abuse been sober for 1 year, history of chronic pancreatitis, presented emergency department with complained of dizziness lightheadedness shortness of breath, and palpitation upon arrival patient hemoglobin was 7.1, there is no obvious source of bleeding, patient was given 1 unit of PRBC, to further evaluate had iron profile which showed iron deficiency anemia, will venofer 300mg x3, and stool Hemoccult is positive, again this morning patient Hgb drop to 6.7, patient will receive 1 units of PRBC, will do NM-RBC scan to locate possible, bleeding, will consult GI and keep patient NPO, patient remains clinically stable, will monitor. Review of Systems Constitutional: Constitutional: Denies chills, Reports fatigue, Denies fever(s), Reports lethargy, Denies malaise, Denies poor appetite and Denies weakness Exam Narrative: Patient is comfortable, NAD HEENT: eyes are clear and none icteric LUNGS: normal respiratory effort ABD: not distend Lower extremities: no edema SKIN: nonjaundiced Neuro: grossly intact. Objective Data Vital Signs Vital Signs: Vital Signs - 24 hr 01/04/22 14:00 01/04/22 16:00 01/04/22 22:00 Temperature 97.7 F 97.2 F L Pulse Rate 100 84 83 Respiratory Rate 18 17 Blood Pressure 113/74 102/62 Pulse Oximetry 100 100 Oxygen Delivery 01/04/22 20:00 01/05/22 00:00 01/05/22 06:00 Temperature 96.7 F L Pulse Rate 80 90 106 H Respiratory Rate 18 Blood Pressure 111/7 L Pulse Oximetry 100 Oxygen Delivery 01/05/22 09:37 01/05/22 08:00 01/05/22 09:54 Temperature 96.9 F L 97.2 F L Pulse Rate 85 85 Respiratory Rate 16 16 Blood Pressure 104/68 96/66 L Pulse Oximetry 100 100 Oxygen Delivery Room Air 01/05/22 08:00 Temperature Pulse Rate 85 Respiratory Rate Blood Pressure Pulse Oximetry Oxygen Delivery Intake/Output Intake/Output: Intake & Output 01/02/22 01/03/22 01/04/22 01/05/22 23:59 23:59 23:59 23:59 Intake Total 1000 2590 1140 Output Total 1800 1200 Balance 1000 790 -60 Meds/Results Medications: Active Medications Generic Name Dose Route Start Last Admin Trade Name Freq PRN Reason Stop Dose Admin Lipas
--- NOTE | 2022-01-05 14:32 | WPDGICN ---
Assessment and Plan Assessment and plan (1) Acute on chronic blood loss anemia: Code(s): D62 - Acute posthemorrhagic anemia Status: Acute Assessment and Plan: no overt gib this time and had extensive gi work up in the past, just completed recent EGD that was negative better after blood transfusion follow-up with hematology no plan to repeat another endoscopic evaluation, she can eat again (2) Chronic pancreatitis: Qualifiers: Pancreatitis type: alcohol induced Qualified Code(s): K86.0 - Alcohol-induced chronic pancreatitis Code(s): K86.1 - Other chronic pancreatitis Status: Chronic Assessment and Plan: no changes (3) Orthostatic hypotension: Code(s): I95.1 - Orthostatic hypotension Status: Acute Assessment and Plan: on presentation and treated better now GI Consult Note Consult date/time: 01/05/22 14:32 Reason for consult: acute on chronic anemia HPI: Adina Jerome is a 51 year old female who was just rencently here with acute drop in h/h that required blood transfusion (baseline hb 8-9, last time down to 3.5). She is very well known to me with also previous hospitalization for intractable n/v and recurrent anemia. She has history of chronic pancreatitis with hx of pancreatic pseudocyst r/t alcohol abuse (no longer drinking since 04/2020) treated by her regular GI, Dr Núñez at [facility] (had multiple ERCP, also had pancreatic-colonic fistula treated with stents), anxiety, seizures, depression, had bone marrow biopsy that showed MGUS with recurrent SHERLEY followed by hematology (she is getting IV iron- can not tolerate oral- and blood transfusion as needed). She had multiple EGD's with enteroscopy (last time tattooed more distal site reached with scope in the jejunum), colonoscopy, had 2 small bowel capsule- no obvious signs of bleeding despite extensive GI work up. I performed push enteroscopy 05/2021 and negative for bleeding. Just few days ago I performed another EGD and was negative for any signs of upper GIB. She is here again with new onset of lightheadedness and feeling like passing out, this time denies any overt gib or melena. Hb down 6.7 and received blood transfusion, now she is feeling better. Review of Systems Review of Systems: All systems reviewed & are unremarkable except as noted in HPI and below Constitutional: Constitutional: Denies chills, Reports fatigue and Denies fever(s) Eyes: Eyes: Reports no additional eye complaints ENT: Denies nasal congestion Cardiovascular: Cardiovascular: Denies chest pain Respiratory: Respiratory: Denies cough and Reports dyspnea on exertion Gastrointestinal: Gastrointestinal: Denies abdominal pain Genitourinary: Genitourinary: Denies hematuria Musculoskeletal: Musculoskeletal: Denies arthralgias Integumentary/Breasts: Skin/Breast: Denies rash Neurologic: Denies Abnormal speech present Psychiatric: Psychiatric: Reports anxiety [facility] Past Medical History Medical History Acute on chronic blood loss anemia Acute on chronic pancreatitis Adenomatous colon polyp Anemia Anxiety Biliary stricture Chronic pancreatitis With history of pseudocyst. Coffee ground emesis Depression Esophageal varices Essential (primary) hypertension Gastroesophageal reflux disease History of alcohol abuse Sober since 2018. Inflammatory arthritis Iron deficiency anemia Melena Monoclonal gammopathy of unknown significance Poorly documented. Occult GI bleeding Attributed to AVMs. Portal vein thrombosis Seizure disorder Seizure disorder Surgical History Surgical History History of colonoscopy with polypectomy History of lumpectomy of right breast Presence of pancreatic duct stent Family History Family History Father Hypertension Cere
[2022-01-05] MEDS: QUEtiapine FUMARATE 25 MG TABLET 50 MG PO (20:29)
[2022-01-05] MEDS: MELATONIN 5 MG TABLET PO (20:29)
[2022-01-06] VITALS: PULSE 79
[2022-01-06 04:00] VITALS: PULSE 75
[2022-01-06 05:55] VITALS: BP 110/70; PULSE 82; RESP 20; TEMP 36.6; O2SAT 97
[2022-01-06 06:42] LABS: Hematocrit 26.8 % (37.0-47.0); Mean Corpuscular HGB Conc 29.9 g/dl (32-36); Mean Corpuscular Hemoglobin 27.4 pg (26-34); Mean Corpuscular Volume 91.8 fl (80-100); Mean Platelet Volume 11.2 fl (7.4-10.4); Platelet Count Result 119 k/mm3 (150-375); Red Blood Count 2.92 M/mm3 (4.2-5.4); Red Cell Distribution Width 18.3 % (11.5-14.5); White Blood Count 4.1 K/mm3 (4.5-10.0)
[2022-01-06 06:56] LABS: Alanine Aminotransferase 34 U/L (6-35); Albumin Level 2.8 g/dL (3.5-5.1); Alkaline Phosphatase 65 U/L (38-126); Anion Gap 6 mmol/L (8-16); Aspartate Amino Transferase 27 U/L (14-36); Bilirubin,Total 0.3 mg/dL (0.2-1.3); Blood Urea Nitrogen 7 mg/dL (7-17); Calcium 7.9 mg/dL (8.4-10.2); Carbon Dioxide 20 mmol/L (22-30); Chloride 108 mmol/L (98-107); Estimated CRCL calculation 115 ml/min; Estimated Glomerular Filt Rate > 60; Glucose 93 mg/dL (65-110); Magnesium 1.7 mg/dL (1.6-2.3); Potassium 3.8 mmol/L (3.4-5.0); Sodium 134 mmol/L (137-145)
[2022-01-06 08:00] VITALS: PULSE 92
[2022-01-06] MEDS: LIPASE/AMYLASE/PROTEASE 12,000 UNITS CAP 2 CAP PO (09:06)
[2022-01-06 09:07] VITALS: PULSE 80
[2022-01-06] MEDS: METOPROLOL SUCCINATE EXT REL 25 MG TABCR PO (09:07)
[2022-01-06] MEDS: levETIRAcetam 250 MG TABLET 750 MG PO (09:07)
[2022-01-06] MEDS: MULTIVITAMINS THERAPEUTIC TAB (*BKC) 1 TABLET PO (09:07)
[2022-01-06] MEDS: DESVENLAFAXINE SUCCINATE 50 MG TAB.ER.24H 100 MG PO (09:07)
[2022-01-06] MEDS: CHOLECALCIFEROL 1,000 UNITS TABLET 5000 UNITS PO (09:07)
[2022-01-06] MEDS: busPIRone HCL 10 MG TABLET PO (09:08)
[2022-01-06] MEDS: PANTOPRAZOLE 40 MG TABLET PO (09:08)
[2022-01-06] MEDS: GABAPENTIN 300 MG CAPSULE PO (09:08)
[2022-01-06] MEDS: FOLIC ACID 1 MG TABLET PO (09:08)
--- NOTE | 2022-01-06 10:36 | PM.DS ---
DS: Admitting Diagnosis Discharge Date 01/06/2022 Admitting Diagnosis dizziness DS: Discharge Diagnosis Discharge Diagnosis (1) Anemia: Code(s): D64.9 - Anemia, unspecified Status: Acute Assessment and Plan: patient received 1 unit of blood continue to monitor 01/05/2022 interval history: 51-year-old female with history of alcohol abuse been sober for 1 year, history of chronic pancreatitis, presented emergency department with complained of dizziness lightheadedness shortness of breath, and palpitation upon arrival patient hemoglobin was 7.1, there is no obvious source of bleeding, patient was given 1 unit of PRBC, to further evaluate had iron profile which showed iron deficiency anemia, will venofer 300mg x3, and stool Hemoccult is positive, again this morning patient Hgb drop to 6.7, patient will receive 1 units of PRBC, will do NM-RBC scan to locate possible, bleeding, will consult GI and keep patient NPO, patient remains clinically stable, will monitor. (2) Orthostatic hypotension: Code(s): I95.1 - Orthostatic hypotension Status: Acute Assessment and Plan: encourage p.o. intake (3) Chronic pancreatitis: Qualifiers: Pancreatitis type: alcohol induced Qualified Code(s): K86.0 - Alcohol-induced chronic pancreatitis Code(s): K86.1 - Other chronic pancreatitis Status: Chronic Assessment and Plan: stable (4) Gastroesophageal reflux disease: Code(s): K21.9 - Gastro-esophageal reflux disease without esophagitis Status: Chronic Assessment and Plan: PPI (5) Alcohol abuse: Code(s): F10.10 - Alcohol abuse, uncomplicated Status: Chronic Assessment and Plan: patient has been sober DS: Summary Hospital Course Reason for hospitalization: Chief Complaint: dizziness Narrative: ?This is a 51-year-old female with past medical history significant for alcohol abuse, chronic pancreatitis, esophageal varices, hypertension, gastroesophageal reflux disease, MGUS. patient presents to the emergency room via EMS due to dizziness, lightheadedness, shortness of breath, palpitations, near-syncope.? Patient had recent admission where she was treated for acute on chronic anemia and discharged home on a course of Ceftin for urinary tract infection patient has no completed her antibiotic course.? Denies any fevers, rigors, chills, nausea, vomiting, hematemesis, melena, cough, sputum production.Prior to arrival to the emergency room on route to the hospital patient was found to have a blood pressure systolic of 70 and received fluids.? In emergency room patient was given 1 unit of blood packed RBCs.? Patient was noted to be orthostatic emergency room is still very symptomatic upon standing decision has been made to admit the patient for further evaluation management and treatment. Hospital Course: 51-year-old female with history of alcohol abuse been sober for 1 year, history of? chronic pancreatitis,? presented emergency department with complained of? dizziness lightheadedness shortness of breath, and palpitation upon arrival patient hemoglobin was 7.1,? there is no obvious source of bleeding,? patient was given 1 unit of PRBC, to further evaluate had iron profile which showed iron deficiency anemia, will venofer 300mg x3,? and stool Hemoccult is positive, again this morning patient Hgb drop to 6.7, patient will receive 1 units of PRBC, will do NM-RBC scan to locate possible, bleeding, will consult GI and keep patient NPO, patient remains clinically stable, will monitor. patient NM-RBC scan did not show any acute bleeding patient was seen by GI and patient did not want any further evaluation patient is clinically will discharge home today Time Spent with Patient Time attestation: Total time spent providing and/or coordinating discharge services: Exam Narrative: Patient is comfortable, NAD HEENT: eyes are clear and none icteric LUNGS: n
[2022-01-06 12:00] VITALS: PULSE 89
== END 2022-01-06 12:35 | disposition home or self-care (01) | DRG 812 ==
LOC: ANHED 21:52 → ANH3MEDSUR 01-04 04:18
PROVIDERS: Admitting Provider Internal Medicine; Emergency Provider Emergency Medicine; PCP Family Medicine; Visit Provider Family Medicine
DX: D50.9 Iron deficiency anemia, unspecified (principal); I85.00 Esophageal varices without bleeding; K86.1 Other chronic pancreatitis; I95.1 Orthostatic hypotension; K21.9 Gastro-esophageal reflux disease without esophagitis; D47.2 Monoclonal gammopathy; M13.80 Other specified arthritis, unspecified site; G40.909 Epilepsy, unspecified, not intractable, without status epilepticus; F10.11 Alcohol abuse, in remission; F32.A Depression, unspecified; F41.9 Anxiety disorder, unspecified; Z86.010 Personal history of colon polyps
CPT/HCPCS: 36415; 36430; 71045; 78278; 80053; 81001; 82607; 82728; 82746; 83540; 83550; 83735; 84466; 85025; 85027; 86850; 86900; 86901; 86920; 93005; 96361; 96374; 99285; A9270; A9560; G0378; J1756; J2405; J3475; J7030; J7050; P9016

== ENCOUNTER 2022-03-17 07:44 | Emergency (ER) | payer MEDICARE, BC, SELFPAY ==
[2022-03-17] VITALS (7 sets, daily range): BP systolic 109–115; BP diastolic 74–88; PULSE 89–134; RESP 16–29; TEMP 37.5; O2SAT 95–100
--- NOTE | ~2022-03-17 | CT_ITS ---
EXAMINATION: CTA chest PE protocol DATE: 03/17/2022 10:32 INDICATION: Shortness of breath. Elevated d-dimer. TECHNIQUE: Computed tomography angiography (CTA) of the chest was performed with 100 mL Omnipaque-350 intravenous contrast timed to evaluate the pulmonary arteries. Coronal maximum intensity projection 3D-reconstructions were created by the technologist. Automated exposure control and iterative reconst ruction technique were employed. Exam dose: 362.46 mGy-cm total exam DLP. COMPARISON: 03/17/2022 AP and lateral chest FINDINGS: There is diagnostic contrast enhancement of the pulmonary arteries and no evidence of pulmo nary embolism. Normal heart size. Trace pericardial fluid. No thoracic aortic aneurysm or dissection. No hilar or mediastinal mass lesion or lymphadenopathy. There is minimal left basilar atelectasis as suggested on the current chest radiograph. Otherwise no pulmonary infiltrate or consolidation. Hepatomegaly and diffuse prominent hepatic steatosis. Splenic size is within normal range. Normal morphology of the adrenal glands. Included skeletal structures are unremarkable. IMPRESSION: No evidence of pulmonary embolism Minimal atelectasis at the left lung base Hepatomegaly and diffuse prominent hepatic steatosis . Reviewed, dictated and finalized at [facility]. Reviewed, dictated and finalized at location [facility]. NE STEAM FITTER
--- NOTE | ~2022-03-17 | XR_ITS ---
XR chest 2V DATE: 03/17/2022 08:29 INDICATION: Shortness of breath, tachycardia TECHNIQUE: AP and lateral views COMPARISON: 01/03/2022 portable AP chest FINDINGS: Normal heart size. No hilar or mediastinal enlargement. Minimal atelectasis at the left tobin g base, left lower lobe. The lungs are otherwise clear. No pleural effusion or pulmonary vascular con gestion or pneumothorax. IMPRESSION: Minimal atelectasis at left lung base, left lower lobe Reviewed, dictated and finalized at location [facility]. NG INSPECTOR
--- NOTE | 2022-03-17 07:47 | ECG_ITS ---
Measurements Intervals [place] Rate: 123 P: 48 LA: 125 QRS: 30 QRSD: 80 T: 35 QT: 317 QTc: 455 Interpretive Statements SINUS TACHYCARDIA MINIMAL ST DEPRESSION NONSPECIFIC ABNORMAL RHYTHM ECG COMPARED TO ECG 01/03/2022 20:11:[address] NOW PRESENT ST (T WAVE) DEVIATION NOW PRESENT Electronically Signed On 03-17-2022 17:13:59 TAPPER BIT by Dann Camacho M.D.
[2022-03-17 08:27] LABS: Basophils Percent Auto 0.4 % (0.2-1.2); Eosinophils Absolute Auto 0.1 K/mm3 (0-0.3); Eosinophils Percent Auto 1.1 % (0-4.4); Hematocrit 33.6 % (37.0-47.0); Hemoglobin 9.8 g/dL (12.0-15.0); Immature Granulocyte Absolute 0.02 K/mm3 (0.00-0.031); Immature Granulocyte Percent A 0.4 % (0-0.5); Immature Platelet Fraction Pct 10.4 % (0.9-11.2); Lymphocytes Absolute Auto 0.51 K/mm3 (0.9-3.2); Mean Corpuscular HGB Conc 29.2 g/dl (32-36); Mean Corpuscular Volume 85.7 fl (80-100); Mean Platelet Volume 10.9 fl (7.4-10.4); Monocytes Absolute Auto 0.7 K/mm3 (0.1-0.6); Neutrophils Absolute Auto 3.4 K/mm3 (1.3-6.7); Neutrophils Percent Auto 73.1 % (45.5-73.1); Platelet Count Result 132 k/mm3 (150-375); Red Blood Count 3.92 M/mm3 (4.2-5.4); Red Cell Distribution Width 16.6 % (11.5-14.5); White Blood Count 4.6 K/mm3 (4.5-10.0)
[2022-03-17 08:35] LABS: Alanine Aminotransferase 87 U/L (6-35); Albumin Level 4.8 g/dL (3.5-5.1); Alkaline Phosphatase 123 U/L (38-126); Anion Gap 15 mmol/L (8-16); Aspartate Amino Transferase 134 U/L (14-36); Bilirubin,Total 0.7 mg/dL (0.2-1.3); Blood Urea Nitrogen 7 mg/dL (7-17); Calcium 8.4 mg/dL (8.4-10.2); Carbon Dioxide 21 mmol/L (22-30); Chloride 98 mmol/L (98-107); Estimated CRCL calculation 84 ml/min; Estimated Glomerular Filt Rate > 60; Glucose 137 mg/dL (65-110); Potassium 3.7 mmol/L (3.4-5.0); Sodium 134 mmol/L (137-145)
[2022-03-17] MEDS: SODIUM CHLORIDE 0.9% IV 1,000 ML 999 ML IV CONT (08:50)
[2022-03-17 09:01] LABS: Partial Thromboplastin Time 28.1 SECONDS (22.3-36.8); Prothrombin Time 13.1 Seconds (11.1-14.7)
[2022-03-17 09:05] LABS: Lipase 52 U/L (23-300); Magnesium 1.1 mg/dL (1.6-2.3)
[2022-03-17 09:07] LABS: Ethanol < 10 mg/dL (<10)
[2022-03-17 09:13] LABS: D Dimer 0.75 ug/mL (<0.48)
[2022-03-17 09:18] LABS: NT Pro B Type Natriuretic Pept 184 pg/mL (5-100); Troponin I < 0.012 ng/mL (0.000-0.034)
[2022-03-17 09:25] LABS: Alveolar/Arterial O2 Gradient 25.2 mmHg; Base Excess ABG -2.4 mEq/l (+/-2.0); Carboxyhemoglobin 0.2 % THb (0-2.0); Device ROOM AIR; Fractional Inspired Oxygen 21 %; HCO3 ABG 20.9 mEq/l (22.0-26.0); Methemoglobin ABG 0.1 %THb (0-1.5); Oxygen Content ABG 14.2 %vol (16.0-22.0); Oxygen Saturation ABG 97.1 % (95.0-100.0); Oxyhemoglobin 95.4 % THb (90.0-100.0); PO2 ABG 87.4 mmHg (80.0-100.0); PO2 FiO2 Ratio Arterial Blood 4.16 %; Reduced Hemoglobin 4.3 %THb (0-5.0); Site Drawn RIGHT RADIAL; Total Hemoglobin 10.5 g/dL (12.0-18.0); pH ABG 7.447 (7.350-7.450)
[2022-03-17] MEDS: MAGNESIUM SULF 4 GM/WATER100ML 4 GM/100 ML BAG IVPB (09:34)
[2022-03-17 09:36] LABS: Lactic Acid Reflex 1.6 mmol/L (0.7-2.0)
[2022-03-17 09:54] LABS: Amphetamine Screen Urine Negative (Negative); Barbiturate Screen Urine Negative (Negative); Benzodiazepines Screen Urine Negative (Negative); Cannabinoid Screen Urine Negative (Negative); Cocaine Screen Urine Negative (Negative); Methadone Screen Urine Negative (Negative); Opiate Screen Urine Negative (Negative); Phencyclidine Screen Urine Negative (Negative)
--- NOTE | 2022-03-17 10:15 | ED.SOB ---
HPI - SOB/Dyspnea General Chief Complaint: Shortness of Breath/Dyspnea Stated Complaint: Fast HR & SOB Time Seen by Provider: 03/17/22 08:07 Source: patient, EMS, RN notes reviewed and old records reviewed Mode of arrival: EMS Limitations: no limitations History of Present Illness HPI Narrative: This is a 51 year old female with history of chronic alcohol abuse, anemia, chronic pancreatitis who presents for evaluation of shortness of breath and elevated heart rate. Patient states yesterday she noticed shortness of breath with exertion. Today her shortness of breath worsened and she also reported weakness. EMS reports patient's heart rate was palpable at 180 on arrival and it was 140s when placed on monitor. Patient has history of severe anemia and she was concerned. She denies any melena, hematemesis, abdominal pain, nausea, vomiting , diarrhea, cough, fever or chest pain. Related Data Home Medications Medication Instructions Recorded Confirmed gabapentin 300 mg capsule 300 mg PO TID 08/26/20 01/04/22 desvenlafaxine 50 mg 100 mg PO QAM 12/04/20 01/04/22 tablet,extended release 24 hr xoofvs-[id number]-tnowhzd 1 cap PO TID 12/04/20 01/04/22 24,000-76,000-120,000 unit capsule,delayed rel (Creon) lorazepam 0.5 mg tablet 0.5 mg PO TID PRN Anxiety 12/04/20 01/04/22 ondansetron 4 mg disintegrating 4 mg PO Q6H PRN Nausea 12/04/20 01/04/22 tablet cholecalciferol (vitamin D3) 125 125 mcg PO QAM 12/05/20 01/04/22 mcg (5,000 unit) capsule folic acid 1 mg tablet 1 mg PO DAILY 12/05/20 01/04/22 multivitamin (Daily Multi-Vitamin 1 tablet PO DAILY 12/05/20 01/04/22 tablet) quetiapine 50 mg tablet 50 mg PO HS 01/26/21 01/04/22 melatonin 5 mg tablet 5 mg PO QHS 12/14/21 01/04/22 metoprolol succinate 25 mg 25 mg PO QAM 12/14/21 01/04/22 tablet,extended release 24 hr buspirone 10 mg tablet 10 mg PO BID 12/23/21 01/04/22 tramadol 50 mg tablet 50 mg PO Q6H PRN Pain 01/04/22 01/04/22 Allergies Allergy/AdvReac Type Severity Reaction Status Date / Time No Known Allergies Allergy Verified 01/04/22 05:51 Review of Systems Review of Systems: All systems reviewed & are unremarkable except as noted in HPI and below Constitutional: Constitutional: Denies chills, Reports fatigue, Denies fever(s) and Reports weakness ENT: Denies nasal congestion Cardiovascular: Cardiovascular: Denies chest pain, Reports rapid heart rate and Denies radiating jaw, neck or arm pain Respiratory: Respiratory: Denies chest congestion, Denies cough, Reports dyspnea and Denies wheezing Gastrointestinal: Gastrointestinal: Denies abdominal pain, Denies bloating, Denies diarrhea, Denies nausea and Denies vomiting Neurologic: Denies headache(s) and Denies focal weakness PMFSH Past Medical History Medical History Acute on chronic blood loss anemia Acute on chronic pancreatitis Adenomatous colon polyp Anemia Anxiety Biliary stricture Chronic pancreatitis With history of pseudocyst. Coffee ground emesis Depression Esophageal varices Essential (primary) hypertension Gastroesophageal reflux disease History of alcohol abuse Sober since 2018. Inflammatory arthritis Iron deficiency anemia Melena Monoclonal gammopathy of unknown significance Poorly documented. Occult GI bleeding Attributed to AVMs. Portal vein thrombosis Seizure disorder Seizure disorder Surgical History Surgical History History of colonoscopy with polypectomy History of lumpectomy of right breast Presence of pancreatic duct stent Family History Family History Father Hypertension Cerebrovascular accident Congestive heart failure Mother Hypertension Rheumatoid arthritis Sibling Hypertension Anxiety Social History Social History Social Hist
[2022-03-17 11:20] LABS: Influenza A QL RT-PCR Negative (Negative); Influenza B QL RT-PCR Negative (Negative); SARS-CoV-2 RNA PCR Negative
== END 2022-03-17 12:35 | disposition home or self-care (01) ==
PROVIDERS: Emergency Provider General Practice; PCP Family Medicine
DX: D50.9 Iron deficiency anemia, unspecified (principal); E83.42 Hypomagnesemia; R00.0 Tachycardia, unspecified; Z20.822 Contact with and (suspected) exposure to COVID-19; I10 Essential (primary) hypertension; G40.909 Epilepsy, unspecified, not intractable, without status epilepticus; K86.1 Other chronic pancreatitis; K21.9 Gastro-esophageal reflux disease without esophagitis; F32.A Depression, unspecified; F41.9 Anxiety disorder, unspecified; Z79.899 Other long term (current) drug therapy; R94.31 Abnormal electrocardiogram [ECG] [EKG]
CPT/HCPCS: 36415; 36600; 71046; 71275; 80053; 80307; 82375; 82805; 83050; 83605; 83690; 83735; 83880; 84484; 85025; 85055; 85380; 85610; 85730; 87636; 93005; 96361; 96365; 99284; J3475; J7030; Q9967

== ENCOUNTER 2022-04-02 01:19 | Emergency (ER) | payer MEDICARE, BC, SELFPAY ==
[2022-04-02] VITALS (25 sets, daily range): BP systolic 94–140; BP diastolic 57–91; PULSE 72–112; RESP 14–18; TEMP 36.5; O2SAT 97–100
--- NOTE | ~2022-04-02 | CT_ITS ---
EXAMINATION: CTA BRAIN/CAROTID DATE: 04/02/2022 13:35 INDICATION: Transient ischemic episode with left-sided facial and right lower leg numbness TECHNIQUE: Computed tomographic angiography (CTA) of the head and neck was performed with 100 mL Omni paque-350 intravenous contrast. Multiplanar reconstructions and maximum intensity projection 3D-recon structions of the carotid arteries and of the intracranial arteries were created by the technologist on a separate workstation. Automated exposure control and iterative reconstruction technique were emp loyed.The dose-length product was 1083.82 mGy-cm. COMPARISON: None. FINDINGS: Carotid arteries: The sliced aortic arch is normal in caliber with no dissection. There is no evident atherosclerotic p laque with 0% stenosis of the right carotid bulb relative to normal distal artery lumen diameter ([employer] CET criteria). There is small amount of atherosclerotic plaque with 0% stenosis of the left carotid b ulb relative to normal distal artery lumen diameter. Cervical soft tissues and cervical spine are unr emarkable. Small amount of respiratory motion artifact and mild dependent atelectasis in the visualiz ed upper lungs. Intracranial arteries There is no hemodynamically significant stenosis in the vertebral, basilar and internal carotid arter ies. Right vertebral artery is mildly dominant. There are no aneurysms identified. Both A1 segments are patent. The basilar artery is relatively small with a patent left P1 segment of comparable size t o a patent left posterior communicating artery. The right posterior cerebral artery is supplied from the right internal carotid artery and a patent right posterior commuting artery. Cerebral arterial ar borization appears symmetric. IMPRESSION: 1. 0% stenosis of the right and left carotid bulbs relative to normal distal artery lumen diameter (N ASCET criteria). 2. Normal variant anatomy of the [place] as detailed above. No cerebral arterial hemodynamic ally significant stenosis, aneurysm or dissection. Reviewed, dictated and finalized at location A. HOST IMPRESSION: 1. 0% stenosis of the right and left carotid bulbs relative to normal distal ar mar lumen diameter (NASCET criteria). 2. Normal variant anatomy of the [place] as detailed above. No cerebra l arterial hemodynamically significant stenosis, aneurysm or dissection.
--- NOTE | ~2022-04-02 | CT_ITS ---
EXAMINATION: CT brain wo con DATE: 04/02/2022 08:13 INDICATION: Transient ischemic episode with right lower leg numbness TECHNIQUE: Computed tomography (CT) of the head was performed without intravenous contrast. Sagittal and coronal reconstructions were performed. The mA was adjusted according to patient size. Iterative reconstruction technique was employed. The dose-length product was 605.33 mGy-cm. COMPARISON: head CT dated 02/08/18 FINDINGS: No acute intracranial hemorrhage, acute infarction or abnormal extra axial fluid collection. Ventricl es are normal and symmetric. No mass/mass effect. The orbits, paranasal sinuses and mastoid air cells are normal. IMPRESSION: 1. No acute intracranial process. Reviewed, dictated and finalized at location A. 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
--- NOTE | 2022-04-02 01:37 | ECG_ITS ---
Measurements Intervals [place] Rate: 98 P: 28 NV: 122 QRS: 5 QRSD: 81 T: -6 QT: 321 QTc: 411 Interpretive Statements SINUS RHYTHM BASELINE ARTIFACT NONSPECIFIC ST ABNORMALITY LOW-VOLTAGE QRS PRECORDIAL LEADS BORDERLINE ECG COMPARED TO ECG 03/17/2022 07:53:07 HEART RATE HAS DECREASED Electronically Signed On 04-02-2022 15:48:02 BUTTON BUTTONHOLE MARKER by Elmer Ann M.D.
[2022-04-02 07:00] LABS: Basophils Percent Auto 0.6 % (0.2-1.2); Eosinophils Absolute Auto 0.1 K/mm3 (0-0.3); Eosinophils Percent Auto 1.5 % (0-4.4); Hematocrit 28.4 % (37.0-47.0); Hemoglobin 8.2 g/dL (12.0-15.0); Immature Granulocyte Absolute 0.07 K/mm3 (0.00-0.031); Immature Granulocyte Percent A 1.1 % (0-0.5); Immature Platelet Fraction Pct 12.8 % (0.9-11.2); Lymphocytes Absolute Auto 0.69 K/mm3 (0.9-3.2); Lymphocytes Percent Auto 11.1 % (18.3-44.2); Mean Corpuscular HGB Conc 28.9 g/dl (32-36); Mean Corpuscular Hemoglobin 24.9 pg (26-34); Mean Corpuscular Volume 86.3 fl (80-100); Mean Platelet Volume 11.8 fl (7.4-10.4); Monocytes Absolute Auto 0.7 K/mm3 (0.1-0.6); Monocytes Percent Auto 11.5 % (2.6-8.5); Neutrophils Absolute Auto 4.6 K/mm3 (1.3-6.7); Neutrophils Percent Auto 74.2 % (45.5-73.1); Nucleated Red Blood Cells Perc 0.3 % (0.0-0.2); Platelet Count Result 140 k/mm3 (150-375); Red Blood Count 3.29 M/mm3 (4.2-5.4); Red Cell Distribution Width 18.2 % (11.5-14.5); White Blood Count 6.2 K/mm3 (4.5-10.0)
[2022-04-02 07:13] LABS: Alanine Aminotransferase 56 U/L (6-35); Albumin Level 4.5 g/dL (3.5-5.1); Alkaline Phosphatase 98 U/L (38-126); Anion Gap 11 mmol/L (8-16); Aspartate Amino Transferase 51 U/L (14-36); Bilirubin,Total 0.4 mg/dL (0.2-1.3); Blood Urea Nitrogen 11 mg/dL (7-17); Carbon Dioxide 23 mmol/L (22-30); Chloride 104 mmol/L (98-107); Estimated CRCL calculation 110 ml/min; Estimated Glomerular Filt Rate > 60; Glucose 111 mg/dL (65-110); Sodium 138 mmol/L (137-145)
[2022-04-02 07:28] LABS: Ovalocytes 1+ (NORMAL)
[2022-04-02 07:30] LABS: Macrocytosis 1+ (NORMAL); Schistocytes None Seen (NORMAL)
--- NOTE | 2022-04-02 07:50 | ED.NEUROSD ---
HPI - Neuro Symptoms/Deficit General Chief Complaint: Neuro Symptoms/Deficit Stated Complaint: R leg numbness/pain, diff swallowing Time Seen by Provider: 04/02/22 07:03 History of Present Illness HPI Narrative: Patient is a 51-year-old female with a history of seizures, anemia, hypertension, anxiety, iron deficient anemia presenting with TIA symptoms. Patient states that last night she developed right leg numbness followed by left facial weakness. States that she was unable to smile with the left side of her face for approximately 30 seconds. States that the numbness in her right leg also lasted approximately 30 seconds. Following this episode, patient states that both of her legs felt very heavy and she felt fatigued. She denies similar episodes in the past. She denies any current symptoms. She denies speech changes, vision changes, gait difficulties. She denies recent fevers, headache, chest pain, shortness of breath, abdominal pain, nausea or vomiting, diarrhea, leg swelling. Related Data Home Medications Medication Instructions Recorded Confirmed gabapentin 300 mg capsule 300 mg PO TID 08/26/20 01/04/22 desvenlafaxine 50 mg 100 mg PO QAM 12/04/20 01/04/22 tablet,extended release 24 hr [id number] 1 cap PO TID 12/04/20 01/04/22 24,000-76,000-120,000 unit capsule,delayed rel (Creon) lorazepam 0.5 mg tablet 0.5 mg PO TID PRN Anxiety 12/04/20 01/04/22 ondansetron 4 mg disintegrating 4 mg PO Q6H PRN Nausea 12/04/20 01/04/22 tablet cholecalciferol (vitamin D3) 125 125 mcg PO QAM 12/05/20 01/04/22 mcg (5,000 unit) capsule folic acid 1 mg tablet 1 mg PO DAILY 12/05/20 01/04/22 multivitamin (Daily Multi-Vitamin 1 tablet PO DAILY 12/05/20 01/04/22 tablet) quetiapine 50 mg tablet 50 mg PO HS 01/26/21 01/04/22 melatonin 5 mg tablet 5 mg PO QHS 12/14/21 01/04/22 metoprolol succinate 25 mg 25 mg PO QAM 12/14/21 01/04/22 tablet,extended release 24 hr buspirone 10 mg tablet 10 mg PO BID 12/23/21 01/04/22 tramadol 50 mg tablet 50 mg PO Q6H PRN Pain 01/04/22 01/04/22 Allergies Allergy/AdvReac Type Severity Reaction Status Date / Time No Known Allergies Allergy Verified 01/04/22 05:51 Review of Systems Review of Systems: All systems reviewed & are unremarkable except as noted in HPI and below PMFSH Past Medical History Medical History Acute on chronic blood loss anemia Acute on chronic pancreatitis Adenomatous colon polyp Anemia Anxiety Biliary stricture Chronic pancreatitis With history of pseudocyst. Coffee ground emesis Depression Esophageal varices Essential (primary) hypertension Gastroesophageal reflux disease History of alcohol abuse Sober since 2018. Inflammatory arthritis Iron deficiency anemia Melena Monoclonal gammopathy of unknown significance Poorly documented. Occult GI bleeding Attributed to AVMs. Portal vein thrombosis Seizure disorder Seizure disorder Surgical History Surgical History History of colonoscopy with polypectomy History of lumpectomy of right breast Presence of pancreatic duct stent Family History Family History Father Hypertension Cerebrovascular accident Congestive heart failure Mother Hypertension Rheumatoid arthritis Sibling Hypertension Anxiety Social History Social History Social History: Surrogate decision maker: Patricia Jerome, mother. She lives with her mother and has no children. 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 She is not able to work due to her health problems. She has never smoked. She stated she quit drinking in 2018 Code status: Full code. Smoking status: Never smoker Second hand tobacco smoke exposure: No Alcohol intake: former Drinks per week: 2 Alcohol use detai
[2022-04-02 09:42] LABS: INR 1.1; Partial Thromboplastin Time 26.5 SECONDS (22.3-36.8); Prothrombin Time 13.3 Seconds (11.1-14.7)
[2022-04-02 10:45] LABS: Influenza A QL RT-PCR Negative (Negative); Influenza B QL RT-PCR Negative (Negative); SARS-CoV-2 RNA PCR Negative
--- NOTE | 2022-04-02 12:00 | PC.NURSE ---
noticed pt did not have IV for ct scan attempted to place one, unable to Asked strategic communications manager for assistance.
== END 2022-04-02 14:47 | disposition home or self-care (01) ==
PROVIDERS: Emergency Medicine; Emergency Provider Emergency Medicine; PCP Family Medicine
DX: G45.9 Transient cerebral ischemic attack, unspecified (principal); I10 Essential (primary) hypertension; F41.9 Anxiety disorder, unspecified; G40.909 Epilepsy, unspecified, not intractable, without status epilepticus; F32.A Depression, unspecified; D50.9 Iron deficiency anemia, unspecified; K21.9 Gastro-esophageal reflux disease without esophagitis; K86.1 Other chronic pancreatitis; Z20.822 Contact with and (suspected) exposure to COVID-19
CPT/HCPCS: 36415; 70450; 70496; 70498; 80053; 85025; 85055; 85610; 85730; 87636; 93005; 99284; Q9967